=== PATIENT | male | born 1940 | race African-American/Black ===

== ENCOUNTER 2017-02-20 13:39 | Inpatient (IN) | payer OTHER ==
--- NOTE | 2017-02-20 17:32 | HP ---
CIWA Score - CIWA Score Nausea/Vomitin Muscle Tremors: 4-Moderate,w/Arms Extend Anxiety: 3 Agitation: 3 Paroxysmal Sweats: 3 Orientation: 1-Uncertain about Date Tacttile Disturbances: 1-Very Mild Itch/Numbness Auditory Disturbances: 0-None Visual Disturbances: 0-None Headache: 0-None Present CIWA-Ar Total Score: 17 Admission ROS BHS - HPI Chief Complaint: Withdrawal sx Allergies/Adverse Reactions: Allergies Allergy/AdvReac Type Severity Reaction Status Date / Time No Known Allergies Allergy Verified 02/20/17 17:17 History of Present Illness: 77 y/o man with a long hx. of alcoholism is admitted for detox. Pt. has been in previous detox, denies significant sobriety. Exam Limitations: No Limitations - Ebola screening Have you traveled outside of the country in the last 21 days: No Have you had contact with anyone from an Ebola affected area: No Have you been sick,other than usual withdrawal symptoms: No Do you have a fever: No - Review of Systems Constitutional: Diaphoresis EENT: reports: No Symptoms Reported Respiratory: reports: No Symptoms reported Cardiac: reports: No Symptoms Reported GI: reports: Nausea, Abdominal cramping : reports: Frequency Musculoskeletal: reports: Back Pain, Joint Pain Integumentary: reports: Sweating Neuro: reports: Tingling, Tremors Endocrine: reports: No Symptoms Reported Hematology: reports: No Symptoms Reported Psychiatric: reports: No Sypmtoms Reported Other Systems: Reviewed and Negative Patient History - Patient Medical History Hx Anemia: No Hx Asthma: No Hx Chronic Obstructive Pulmonary Disease (COPD): No Hx Cancer: No Hx Cardiac Disorders: No Hx Congestive Heart Failure: No Hx Hypertension: Yes Hx Hypercholesterolemia: No Hx Pacemaker: No HX Cerebrovascular Accident: No Hx Seizures: No Hx Dementia: No Hx Diabetes: No Hx Gastrointestinal Disorders: Yes (gerd) Hx Liver Disease: No Hx Genitourinary Disorders: No Hx Sexually Transmitted Disorders: No Hx Renal Disease (ESRD): No Hx Thyroid Disease: No Hx Human Immunodeficiency Virus (HIV): No Hx Hepatitis C: No Hx Depression: Yes Hx Suicide Attempt: No Hx Bipolar Disorder: No Hx Schizophrenia: No - Patient Surgical History Past Surgical History: Yes Hx Appendectomy: Yes (1967) Hx Orthopedic Surgery: Yes (total knee replacement 2014 & 2015) - PPD History Previous Implant?: Yes Documented Results: Positive w/o proof PPD to be Administered?: No - Smoking Cessation Smoking history: Former smoker Have you smoked in the past 12 months: No Initiated information on smoking cessation: No - Substance & Tx. History Hx Alcohol Use: Yes Hx Substance Use: Yes Substance Use Type: Alcohol, Cocaine, Marijuana Hx Substance Use Treatment: Yes (Detox) - Substances Abused Alcohol Route: Oral Frequency: Daily Amount used: Vodka 1 quart Age of first use: 13 Date of Last Use: 02/19/17 Crack Route: Smoking Frequency: Daily Amount used: $60.00-80.00 Age of first use: 39 Date of Last Use: 02/18/17 Marijuana/Hashish Route: Smoking Frequency: Daily Amount used: $20.00 Age of first use: 39 Date of Last Use: 02/20/17 Family Disease History - Family Disease History Family Disease History: Heart Disease: Mother (HTN), Brother (HTN) Admission Physical Exam [facility] - Vital Signs Vital Signs: Vital Signs - 24 hr 02/20/17 14:30 Temperature 97.3 F L Pulse Rate 71 Respiratory 20 Rate Blood Pressure 122/63 - Physical General Appearance: Yes: Tremorous, Sweating, Anxious HEENTM: Yes: Within Normal Limits Respiratory: Yes: Chest Non-Tender, Lungs Clear, Normal Breath Sounds Neck: Yes: Supple Breast: Yes: Breast Exam Deferred Cardiology: Yes: Regular Rhythm, Regular Rate, S1, S2 Abdominal: Yes: Normal Bowel Sounds, Non Tender, Soft Back: Yes: Within Normal Limits Musculoskeletal: Yes: Within Normal Limits Extremities: Yes: Tremors Neurological: Yes: Fully Oriented, Alert Integumentary: Yes: Diaphoresis Lymphatic: Yes: Within Normal Limits - Diagnostic (1) Alcohol dependence with uncomplicated withdrawal Current Visit: Yes Status: Acute (2) Glaucoma of both eyes Current Visit: Yes Status: Acute (3) Gout Current Visit: Yes Status: Acute Qualifiers: Gout site: hand (4) HTN (hypertension) Current Visit: Yes Status: Acute Qualifiers: Hypertension type: essential hypertension Qualified Code(s): I10 - Essential (primary) hypertension (5) Cocaine dependence, uncomplicated Current Visit: Yes Status: Acute (6) Cannabis dependence, uncomplicated Current Visit: Yes Status: Acute Cleared for Admission [facility] - Detox or Rehab [facility] Level of Care: Medically Managed Detox Regimen/Protocol: Librium S Breath Alcohol Content Breath Alcohol Content: 0 Urine Drug Screen - Results Drug Screen Negative: No Urine Drug Screen Results: THC-Marijuana, BAUDILIO-Cocaine, TCA-Tricyclic Antidepress
[2017-02-20] MEDS ORDERED: MAGNESIUM HYDROX 2400MG/30ML ORAL SUSPENSION 30 ML CUP PO PRN (17:45)
[2017-02-20] MEDS ORDERED: chlordiazePOXIDE HCL 25 MG CAPSULE PO PRN (17:45)
[2017-02-20] MEDS ORDERED: P-EPHED 60MG/TRIPROLIDI 2.5MG TABLET PO PRN (17:45)
[2017-02-20] MEDS ORDERED: chlordiazePOXIDE HCL 25 MG CAPSULE PO ONE (17:45)
[2017-02-20] MEDS ORDERED: MAGNESIUM CITRATE 300 ML BOTTLE PO PRN (17:45)
[2017-02-20] MEDS ORDERED: LOPERAMIDE HCL 2 MG CAPSULE PO PRN (17:45)
[2017-02-20] MEDS: amLODIPine BESYLATE 5 MG TABLET (FP) PO SCH (22:37)
[2017-02-20] MEDS: TAMSULOSIN HCL 0.4 MG CAP.ER.24H (FP) PO SCH (22:37)
[2017-02-20] MEDS: ENALAPRIL MALEATE 10 MG TABLET (FP) PO SCH (22:37)
[2017-02-20] MEDS: chlordiazePOXIDE HCL 25 MG CAPSULE PO SCH (22:37)
[2017-02-20] MEDS: THIAMINE HCL 100 MG TABLET (FP) PO SCH (22:37)
[2017-02-20] MEDS: DUTASTERIDE 0.5 MG CAP (FP) PO SCH (22:38)
[2017-02-20] MEDS: LATANOPROST 0.005% OPHTH SOLN 2.5ML BOTTLE OU SCH (22:38)
[2017-02-20] MEDS: ALLOPURINOL 100 MG TABLET (FP) PO SCH (22:38)
[2017-02-21] MEDS: chlordiazePOXIDE HCL 25 MG CAPSULE PO SCH ×4 (05:39→22:05)
[2017-02-21] MEDS: PRENATAL VITAMINS W/ FOLIC ACID TABLET (FP) PO SCH (10:26)
[2017-02-21] MEDS: IBUPROFEN 400 MG TABLET (FP) PO PRN (10:28)
[2017-02-21 10:31] LABS: ALBUMIN 2.8 g/dl (3.4-5.0); ANION GAP 11 (8-16); CO2 23 mmol/L (21-32); GLUCOSE,RANDOM 92 mg/dL (74-106)
[2017-02-21 10:34] LABS: ALK PHOS 98 U/L (45-117); BILIRUBIN,TOTAL 0.7 mg/dL (0.2-1.0); CREATININE 1.1 mg/dL (0.7-1.3); SGOT/AST 20 U/L (15-37); SGPT/ALT 26 U/L (12-78); TOT PROT 5.7 g/dl (6.4-8.2)
[2017-02-21 10:55] LABS: MCH 32.3 pg (25.7-33.7); MCHC 33.6 g/dl (32.0-35.9); MEAN PLT VOLUME 8.5 fl (7.5-11.1); PLATELET COUNT 144 K/MM3 (134-434); RDW 15.2 % (11.9-15.9); WHITE BLOOD COUNT 8.4 K/mm3 (4.0-10.0)
[2017-02-21 11:53] LABS: PH,URINE 5.5 (5.0-8.0); URINE APPEARANCE CLEAR; URINE BILIRUBIN 1+ (NEGATIVE); URINE BLOOD NEGATIVE (NEGATIVE); URINE COLOR DK. YELLOW; URINE GLUCOSE (UA) NEGATIVE (NEGATIVE); URINE KETONE TRACE (NEGATIVE); URINE LEUK ESTERASE NEGATIVE (NEGATIVE); URINE NITRITE NEGATIVE (NEGATIVE); URINE PROTEIN TRACE (NEGATIVE); URINE UROBILINOGEN 0.2 mg/dL (0.2-1.0)
[2017-02-21] MEDS ORDERED: PNEUMOC 13-VAL CONJ-DIP CRM/PF 0.5 ML DISP.SYRIN IM ONE (12:00)
--- NOTE | 2017-02-21 13:54 | EKG ---
Test Reason : Blood Pressure : / mmHG Vent. Rate : 057 BPM Atrial Rate : 057 BPM P-R Int : 186 ms QRS Dur : 108 ms QT Int : 416 ms P-R-T Axes : 066 042 042 degrees QTc Int : 404 ms SINUS BRADYCARDIA POSSIBLE LEFT ATRIAL ENLARGEMENT RIGHT BUNDLE BRANCH BLOCK ABNORMAL ECG NO PREVIOUS ECGS AVAILABLE Confirmed by KAYCEE SNOW, MAMTA ([id number]) on 02/21/2017 1:53:51 PM Referred By: Jim May Confirmed By:MAMTA BENOIT MD
--- NOTE | 2017-02-21 16:35 | PN ---
S CIWA - CIWA Score Nausea/Vomitin Muscle Tremors: 4-Moderate,w/Arms Extend Anxiety: 4-Mod. Anxious/Guarded Agitation: 4-Moderately Restless Paroxysmal Sweats: 3 Orientation: 0-Oriented Tacttile Disturbances: 1-Very Mild Itch/Numbness Auditory Disturbances: 0-None Visual Disturbances: 0-None Headache: 1-Very Mild CIWA-Ar Total Score: 20 BHS Progress Note (SOAP) Subjective: Tremor, chills, anxious, diarrhea, interrupted sleep, sweating Objective: 02/21/17 16:33 Last Vital Signs Temp Pulse Resp BP Pulse Ox 95.8 F L 65 18 106/54 02/21/17 14:28 02/21/17 14:28 02/21/17 14:28 02/21/17 14:28 Laboratory Tests 02/21/17 02/21/17 02/21/17 08:00 08:00 08:00 WBC 8.4 RBC 3.98 L Hgb 12.8 Hct 38.2 MCV 96.0 MCH 32.3 MCHC 33.6 RDW 15.2 Plt Count 144 MPV 8.5 Sodium 143 Potassium 3.6 Chloride 109 H Carbon Dioxide 23 Anion Gap 11 BUN 19 H Creatinine 1.1 Creat Clearance w eGFR > 60 Random Glucose 92 Calcium 8.0 L Total Bilirubin 0.7 AST 20 ALT 26 Alkaline Phosphatase 98 Total Protein 5.7 L Albumin 2.8 L Urine Color Urine Appearance Urine pH Urine Protein Urine Glucose (UA) Urine Ketones Urine Blood Urine Nitrite Urine Bilirubin Urine Urobilinogen Ur Leukocyte Esterase RPR Titer Nonreactive 02/21/17 09:20 WBC RBC Hgb Hct MCV MCH MCHC RDW Plt Count MPV Sodium Potassium Chloride Carbon Dioxide Anion Gap BUN Creatinine Creat Clearance w eGFR Random Glucose Calcium Total Bilirubin AST ALT Alkaline Phosphatase Total Protein Albumin Urine Color Dk. yellow Urine Appearance Clear Urine pH 5.5 Urine Protein Trace H Urine Glucose (UA) Negative Urine Ketones Trace H Urine Blood Negative Urine Nitrite Negative Urine Bilirubin 1+ H Urine Urobilinogen 0.2 Ur Leukocyte Esterase Negative RPR Titer Labs noted: abnormal UA Assessment: 02/21/17 16:34 Withdrawal symptoms Noted with abnormal UA Plan: Continue detox Abnormal UA: encouraged to drink lots of water (water pitcher ordered), repeat UA (already ordered)
[2017-02-21] MEDS: ENALAPRIL MALEATE 10 MG TABLET (FP) PO SCH (22:05)
[2017-02-21] MEDS: TAMSULOSIN HCL 0.4 MG CAP.ER.24H (FP) PO SCH (22:05)
[2017-02-21] MEDS: THIAMINE HCL 100 MG TABLET (FP) PO SCH (22:05)
[2017-02-21] MEDS: amLODIPine BESYLATE 5 MG TABLET (FP) PO SCH (22:05)
[2017-02-21] MEDS: diphenhydrAMINE HCL 50 MG CAPSULE PO PRN (22:06)
[2017-02-21] MEDS: DUTASTERIDE 0.5 MG CAP (FP) PO SCH (22:06)
[2017-02-21] MEDS: LATANOPROST 0.005% OPHTH SOLN 2.5ML BOTTLE OU SCH (22:56)
[2017-02-21] MEDS: ALLOPURINOL 100 MG TABLET (FP) PO SCH (22:56)
[2017-02-22] MEDS: chlordiazePOXIDE HCL 25 MG CAPSULE PO SCH ×3 (05:43→17:39)
[2017-02-22] MEDS: PRENATAL VITAMINS W/ FOLIC ACID TABLET (FP) PO SCH (10:31)
--- NOTE | 2017-02-22 11:03 | CONSULT ---
[facility] Psychiatric Consult - Data Date of interview: 02/22/17 Admission source: [facility] Identifying data: Readmission to [facility] for this 77 y/o AA male seeking detox treatment on 3 for alcohol,cocaine (crack) and marihuana dependence.Patient is single without children,homeless,unemployed and supported on SSI benefits (?). Substance Abuse History: Discussed with patient in this interview.Mr Phong confirms this report as an accurate account of his addictions. Smoking Cessation. Smoking history: Former smoker. Have you smoked in the past 12 months: No. Initiated information on smoking cessation: No. - Substance & Tx. History. Hx Alcohol Use: Yes. Hx Substance Use: Yes. Substance Use Type: Alcohol, Cocaine, Marijuana. Hx Substance Use Treatment: Yes (Detox). - Substances Abused. Alcohol. Route: Oral. Frequency: Daily. Amount used: Vodka 1 quart. Age of first use: 13. Date of Last Use: 02/19/17. Crack. Route: Smoking. Frequency: Daily. Amount used: $60.00-80.00. Age of first use : 39. Date of Last Use: 02/18/17. Marijuana/Hashish. Route: Smoking. Frequency: Daily. Amount used: $20.00. Age of first use: 39. Date of Last Use : 02/20/17 Medical History: Remarkable for arthritis,lower back pain,gout,GERD,glaucoma ( both eyes),appendectomy and a history of total knee replacement. Psychiatric History: Patient denies. Physical/Sexual Abuse/Trauma History: Patient denies. Additional Comment: Urine Drug Screen Results: THC-Marijuana, BAUDILIO-Cocaine, TCA- Tricyclic Antidepressant.Noted. Mental Status Exam - Mental Status Exam Alert and Oriented to: Time, Place, Person Cognitive Function: Grossly Intact Patient Appearance: Unkempt, Disheveled Mood: Withdrawn, Irritable Affect: Mood Congruent Patient Behavior: Fatigued, Guarded Speech Pattern: Clear Voice Loudness: Normal Thought Process: Goal Oriented Thought Disorder: Not Present Hallucinations: Denies Suicidal Ideation: Denies Homicidal Ideation: Denies Insight/Judgement: Poor Sleep: Well Appetite: Good Gait/Station: Other (moves around in a wheelchair) Psychiatric Findings - Problem List ([place] 1, 2,3) (1) Alcohol dependence with uncomplicated withdrawal Current Visit: Yes Status: Acute (2) Cannabis dependence, uncomplicated Current Visit: Yes Status: Acute (3) Cocaine dependence, uncomplicated Current Visit: Yes Status: Acute (4) Glaucoma of both eyes Current Visit: Yes Status: Acute (5) Gout Current Visit: Yes Status: Chronic Qualifiers: Gout site: hand (6) HTN (hypertension) Current Visit: Yes Status: Chronic Qualifiers: Hypertension type: essential hypertension Qualified Code(s): I10 - Essential (primary) hypertension - Initial Treatment Plan Initial Treatment Plan: Psychoeducation is provided in this session.Detoxification in progress.Observation.
--- NOTE | 2017-02-22 12:26 | PN ---
[facility] CIWA - CIWA Score Nausea/Vomitin-No Nausea/No Vomiting Muscle Tremors: 4-Moderate,w/Arms Extend Anxiety: 4-Mod. Anxious/Guarded Agitation: 3 Paroxysmal Sweats: 3 Orientation: 0-Oriented Tacttile Disturbances: 0-None Auditory Disturbances: 0-None Visual Disturbances: 0-None Headache: 0-None Present CIWA-Ar Total Score: 14 S Progress Note (SOAP) Subjective: Sweating,interrupted sleep,anxiety,tremors Objective: 02/22/17 12:18 Vital Signs - 8 hr 02/22/17 02/22/17 06:37 09:44 Temperature 97.2 F L 96.9 F L Pulse Rate 71 74 Respiratory 16 18 Rate Blood Pressure 122/70 108/66 Laboratory Last Values WBC 8.4 K/mm3 (4.0-10.0) 02/21/17 08:00 RBC 3.98 M/mm3 (4.00-5.60) L 02/21/17 08:00 Hgb 12.8 GM/dL (11.7-16.9) 02/21/17 08:00 Hct 38.2 % (35.4-49) 02/21/17 08:00 MCV 96.0 fl (80-96) 02/21/17 08:00 MCH 32.3 pg (25.7-33.7) 02/21/17 08:00 MCHC 33.6 g/dl (32.0-35.9) 02/21/17 08:00 RDW 15.2 % (11.9-15.9) 02/21/17 08:00 Plt Count 144 K/MM3 (134-434) 02/21/17 08:00 MPV 8.5 fl (7.5-11.1) 02/21/17 08:00 Sodium 143 mmol/L (136-145) 02/21/17 08:00 Potassium 3.6 mmol/L (3.5-5.1) 02/21/17 08:00 Chloride 109 mmol/L (98-107) H 02/21/17 08:00 Carbon Dioxide 23 mmol/L (21-32) 02/21/17 08:00 Anion Gap 11 (8-16) 02/21/17 08:00 BUN 19 mg/dL (7-18) H 02/21/17 08:00 Creatinine 1.1 mg/dL (0.7-1.3) 02/21/17 08:00 Creat Clearance w eGFR > 60 (>60) 02/21/17 08:00 Random Glucose 92 mg/dL (74-106) 02/21/17 08:00 Calcium 8.0 mg/dL (8.5-10.1) L 02/21/17 08:00 Total Bilirubin 0.7 mg/dL (0.2-1.0) 02/21/17 08:00 AST 20 U/L (15-37) 02/21/17 08:00 ALT 26 U/L (12-78) 02/21/17 08:00 Alkaline Phosphatase 98 U/L (45-117) 02/21/17 08:00 Total Protein 5.7 g/dl (6.4-8.2) L 02/21/17 08:00 Albumin 2.8 g/dl (3.4-5.0) L 02/21/17 08:00 Urine Color Dk. yellow 02/21/17 09:20 Urine Appearance Clear 02/21/17 09:20 Urine pH 5.5 (5.0-8.0) 02/21/17 09:20 Ur Specific [place] 1.025 (1.005-1.025) 02/21/17 09:20 Urine Protein Trace (NEGATIVE) H 02/21/17 09:20 Urine Glucose (UA) Negative (NEGATIVE) 02/21/17 09:20 Urine Ketones Trace (NEGATIVE) H 02/21/17 09:20 Urine Blood Negative (NEGATIVE) 02/21/17 09:20 Urine Nitrite Negative (NEGATIVE) 02/21/17 09:20 Urine Bilirubin 1+ (NEGATIVE) H 02/21/17 09:20 Urine Urobilinogen 0.2 mg/dL (0.2-1.0) 02/21/17 09:20 Ur Leukocyte Esterase Negative (NEGATIVE) 02/21/17 09:20 RPR Titer Nonreactive (NONREACTIVE) 02/21/17 08:00 labs noted Assessment: 02/22/17 12:19 Withdrawal sx. Plan: Continue detox
[2017-02-22] MEDS: IBUPROFEN 400 MG TABLET (FP) PO PRN (17:38)
[2017-02-22] MEDS: TAMSULOSIN HCL 0.4 MG CAP.ER.24H (FP) PO SCH (22:37)
[2017-02-22] MEDS: THIAMINE HCL 100 MG TABLET (FP) PO SCH (22:38)
[2017-02-22] MEDS: amLODIPine BESYLATE 5 MG TABLET (FP) PO SCH (22:38)
[2017-02-22] MEDS: ENALAPRIL MALEATE 10 MG TABLET (FP) PO SCH (22:38)
[2017-02-22] MEDS: chlordiazePOXIDE 5 MG CAPSULE PO SCH (22:38)
[2017-02-22] MEDS: DUTASTERIDE 0.5 MG CAP (FP) PO SCH (22:38)
[2017-02-22] MEDS: ALLOPURINOL 100 MG TABLET (FP) PO SCH (22:38)
[2017-02-22] MEDS: LATANOPROST 0.005% OPHTH SOLN 2.5ML BOTTLE OU SCH (22:39)
[2017-02-23] MEDS: chlordiazePOXIDE 5 MG CAPSULE PO SCH (05:31)
[2017-02-23] MEDS: PRENATAL VITAMINS W/ FOLIC ACID TABLET (FP) PO SCH (10:32)
--- NOTE | 2017-02-23 11:05 | PN ---
[facility] Progress Note (SOAP) Subjective: Sweating,interrupted sleep,restless. Pt. wants to go to rehab upon completion of detox. Objective: 02/23/17 11:04 Vital Signs - 8 hr 02/23/17 02/23/17 02/23/17 03:30 06:42 10:05 Temperature 97.0 F L 95.8 F L Pulse Rate 82 76 Respiratory 18 18 18 Rate Blood Pressure 134/80 128/76 Laboratory Last Values WBC 8.4 K/mm3 (4.0-10.0) 02/21/17 08:00 RBC 3.98 M/mm3 (4.00-5.60) L 02/21/17 08:00 Hgb 12.8 GM/dL (11.7-16.9) 02/21/17 08:00 Hct 38.2 % (35.4-49) 02/21/17 08:00 MCV 96.0 fl (80-96) 02/21/17 08:00 MCH 32.3 pg (25.7-33.7) 02/21/17 08:00 MCHC 33.6 g/dl (32.0-35.9) 02/21/17 08:00 RDW 15.2 % (11.9-15.9) 02/21/17 08:00 Plt Count 144 K/MM3 (134-434) 02/21/17 08:00 MPV 8.5 fl (7.5-11.1) 02/21/17 08:00 Sodium 143 mmol/L (136-145) 02/21/17 08:00 Potassium 3.6 mmol/L (3.5-5.1) 02/21/17 08:00 Chloride 109 mmol/L (98-107) H 02/21/17 08:00 Carbon Dioxide 23 mmol/L (21-32) 02/21/17 08:00 Anion Gap 11 (8-16) 02/21/17 08:00 BUN 19 mg/dL (7-18) H 02/21/17 08:00 Creatinine 1.1 mg/dL (0.7-1.3) 02/21/17 08:00 Creat Clearance w eGFR > 60 (>60) 02/21/17 08:00 Random Glucose 92 mg/dL (74-106) 02/21/17 08:00 Calcium 8.0 mg/dL (8.5-10.1) L 02/21/17 08:00 Total Bilirubin 0.7 mg/dL (0.2-1.0) 02/21/17 08:00 AST 20 U/L (15-37) 02/21/17 08:00 ALT 26 U/L (12-78) 02/21/17 08:00 Alkaline Phosphatase 98 U/L (45-117) 02/21/17 08:00 Total Protein 5.7 g/dl (6.4-8.2) L 02/21/17 08:00 Albumin 2.8 g/dl (3.4-5.0) L 02/21/17 08:00 Urine Color Dk. yellow 02/21/17 09:20 Urine Appearance Clear 02/21/17 09:20 Urine pH 5.5 (5.0-8.0) 02/21/17 09:20 Ur Specific [place] 1.025 (1.005-1.025) 02/21/17 09:20 Urine Protein Trace (NEGATIVE) H 02/21/17 09:20 Urine Glucose (UA) Negative (NEGATIVE) 02/21/17 09:20 Urine Ketones Trace (NEGATIVE) H 02/21/17 09:20 Urine Blood Negative (NEGATIVE) 02/21/17 09:20 Urine Nitrite Negative (NEGATIVE) 02/21/17 09:20 Urine Bilirubin 1+ (NEGATIVE) H 02/21/17 09:20 Urine Urobilinogen 0.2 mg/dL (0.2-1.0) 02/21/17 09:20 Ur Leukocyte Esterase Negative (NEGATIVE) 02/21/17 09:20 RPR Titer Nonreactive (NONREACTIVE) 02/21/17 08:00 labs noted Assessment: 02/23/17 11:05 Withdrawal sx. Plan: Continue detox
[2017-02-23] MEDS: MAG HYDROX/AL HYDROX/SIMETH 30 ML UNIT-DOSE CUP PO PRN ×2 (14:54→22:39)
[2017-02-23] MEDS: ALLOPURINOL 100 MG TABLET (FP) PO SCH (22:35)
[2017-02-23] MEDS: DUTASTERIDE 0.5 MG CAP (FP) PO SCH (22:35)
[2017-02-23] MEDS: THIAMINE HCL 100 MG TABLET (FP) PO SCH (22:35)
[2017-02-23] MEDS: amLODIPine BESYLATE 5 MG TABLET (FP) PO SCH (22:36)
[2017-02-23] MEDS: ENALAPRIL MALEATE 10 MG TABLET (FP) PO SCH (22:36)
[2017-02-23] MEDS: TAMSULOSIN HCL 0.4 MG CAP.ER.24H (FP) PO SCH (22:36)
[2017-02-23] MEDS: LATANOPROST 0.005% OPHTH SOLN 2.5ML BOTTLE OU SCH (22:54)
[2017-02-23] MEDS ORDERED: chlordiazePOXIDE HCL 10 MG CAPSULE PO SCH ×2 (23:00)
--- NOTE | 2017-02-24 09:26 | HP ---
[facility] Rehab Assess/Revision - Admission History Admitted to Rehab from: [facility] [place] - Vital signs Vital Signs: Vital Signs Period Temp Pulse Resp BP Sys/[place] Pulse Ox Last 24 Hr 95.8 F-97.4 F 69-82 18-20 115-136/69-79 - Findings Detox History & Physical reviewed: Yes Concur with findings: Yes Comments/Additional Findings: PATIENT TRANSFERRED FROM DETOX UNIT TO REHAB UNIT IN STABLE MEDICAL CONDITION.
[2017-02-24] MEDS: PRENATAL VITAMINS W/ FOLIC ACID TABLET (FP) PO SCH (10:52)
--- NOTE | 2017-02-24 11:43 | DS ---
[facility] Detox Discharge Summary Admission Date: 02/20/17 Discharge Date: 02/24/17 - History Present History: Alcohol Dependence, Cannabis Dependence, Cocaine Dependence Additional Comments: PATIENT GOING TO [facility]. PATIENT ADVISED TO FOLLOW-UP THERE FOR AFTERCARE PER DISCHARGE ARRANGEMENT. Pertinent Past History: Gout, Glaucoma, GERD, Depression, HTN. - Physical Exam Results Vital Signs: Vital Signs Temperature 96.5 F L 02/24/17 09:47 Pulse Rate 73 02/24/17 09:47 Respiratory Rate 18 02/24/17 09:47 Blood Pressure 137/68 02/24/17 09:47 O2 Sat by Pulse Oximetry (%) Pertinent Admission Physical Exam Findings: WITHDRAWAL SYMPTOMS. Laboratory Tests 02/21/17 02/21/17 02/21/17 08:00 08:00 08:00 WBC 8.4 RBC 3.98 L Hgb 12.8 Hct 38.2 MCV 96.0 MCH 32.3 MCHC 33.6 RDW 15.2 Plt Count 144 MPV 8.5 Sodium 143 Potassium 3.6 Chloride 109 H Carbon Dioxide 23 Anion Gap 11 BUN 19 H Creatinine 1.1 Creat Clearance w eGFR > 60 Random Glucose 92 Calcium 8.0 L Total Bilirubin 0.7 AST 20 ALT 26 Alkaline Phosphatase 98 Total Protein 5.7 L Albumin 2.8 L Urine Color Urine Appearance Urine pH Ur Specific [place] Urine Protein Urine Glucose (UA) Urine Ketones Urine Blood Urine Nitrite Urine Bilirubin Urine Urobilinogen Ur Leukocyte Esterase RPR Titer Nonreactive 02/21/17 09:20 WBC RBC Hgb Hct MCV MCH MCHC RDW Plt Count MPV Sodium Potassium Chloride Carbon Dioxide Anion Gap BUN Creatinine Creat Clearance w eGFR Random Glucose Calcium Total Bilirubin AST ALT Alkaline Phosphatase Total Protein Albumin Urine Color Dk. yellow Urine Appearance Clear Urine pH 5.5 Ur Specific [place] 1.025 Urine Protein Trace H Urine Glucose (UA) Negative Urine Ketones Trace H Urine Blood Negative Urine Nitrite Negative Urine Bilirubin 1+ H Urine Urobilinogen 0.2 Ur Leukocyte Esterase Negative RPR Titer LABS NOTED. - Treatment Hospital Course: Detox Protocol Followed, Detoxed Safely, Responded well, Discharged Condition Good, Rehab Referral Accepted Patient has Accepted a Rehab Referral to: [facility]. - Medication Discharge Medications: Ambulatory Orders Loperamide HCl [Imodium -] 4 mg PO Q6H PRN 01/02/16 Multivitamin [Poly-Vitamin] 1 each PO DAILY #30 tab.chew 01/03/16 Thiamine HCl [B-1] 100 mg PO HS #30 tablet 01/03/16 Ranitidine [Zantac -] 150 mg PO BID #60 tablet 04/15/16 Allopurinol [Zyloprim -] 100 mg PO HS 02/20/17 Amlodipine Besylate [Norvasc -] 5 mg PO HS 02/20/17 Dutasteride [Avodart] 0.5 mg PO HS 02/20/17 Enalapril Maleate [Vasotec -] 10 mg PO HS 02/20/17 Latanoprost 0.005% Eye Drops [Xalatan 0.005% Eye Drops -] 1 drop OU HS 02/20/17 Tamsulosin HCl [Flomax] 0.4 mg PO HS 02/20/17 - Diagnosis (1) Cannabis dependence, uncomplicated Current Visit: Yes Status: Acute (2) Cocaine dependence, uncomplicated Current Visit: Yes Status: Acute (3) Glaucoma of both eyes Current Visit: Yes Status: Chronic Qualifiers: Glaucoma type: unspecified Qualified Code(s): H40.9 - Unspecified glaucoma (4) Alcohol dependence with uncomplicated withdrawal Current Visit: Yes Status: Acute (5) Chronic kidney disease Current Visit: No Status: Chronic Qualifiers: Chronic kidney disease stage: unspecified stage Qualified Code(s): N18.9 - Chronic kidney disease, unspecified (6) Gout Current Visit: Yes Status: Acute Qualifiers: Gout site: multiple sites Gout etiology: other secondary cause Chronicity: chronic Presence of tophus: with tophus Qualified Code(s) : M1A.49X1 - Other secondary chronic gout, multiple sites, with tophus (tophi) - AMA Did Patient Leave Against Medical Advice: No
--- NOTE | 2017-02-24 11:47 | HP ---
Psychiatrist Admission - Data Date of interview: 02/24/17 Admission source: [facility] Identifying data: This is the second [facility] admission for this 77 years old single Black male, unemployed on SSI, homeless Medical History: Significant for hypertension, arthritis, lower back pain, gout , GERD, glaucoma (both eyes), +PPD, appendectomy in 1967 and a history of total knee replacementin 2015 & 2016. Psychiatric History: Denies history of previous psychiatric treatment Vital Signs: Vital Signs - 24 hr 02/23/17 02/23/17 02/23/17 14:00 17:56 22:37 Temperature 97.0 F L 97.4 F L 97.1 F L Pulse Rate 79 78 82 Respiratory 18 20 20 Rate Blood Pressure 115/79 125/69 126/79 02/24/17 02/24/17 06:39 09:47 Temperature 97.0 F L 96.5 F L Pulse Rate 69 73 Respiratory 18 18 Rate Blood Pressure 136/77 137/68 Allergies/Adverse Reactions: Allergies Allergy/AdvReac Type Severity Reaction Status Date / Time orange Allergy Verified 03/18/16 14:53 strawberry [[place]] Allergy Verified 03/18/16 14:53 carrot Allergy Uncoded 03/18/16 14:53 Date of last physical exam: 02/20/17 Concur with the findings of this exam: Yes - Substance Abuse/Tx History Hx Alcohol Use: Yes Hx Substance Use: Yes Substance Use Type: Alcohol (Started drinking alcohol at age 13, consumes one pint daily. Last drink on 02/19/17), Cocaine (Started smoking crack cocaine at age 39, consumes $60-80 worth daily. Last drink on 02/18/17), Marijuana (Started smoking marijuana at age 39, consumes $20 worth daily. Last smoked on 02/20/17) Hx Substance Use Treatment: Yes (one previous inpt detox & one inpt rehab(5N) @ [facility]) - Admission Criteria Previous failed treatment: No Poor recovery environment: Yes Comorbidities: Yes Lacks judgement: Yes Mental Status Exam - Mental Status Exam Alert and Oriented to: Time, Place, Person Cognitive Function: Fair Patient Appearance: Well Groomed Mood: Irritable Affect: Appropriate Patient Behavior: Cooperative Speech Pattern: Clear Voice Loudness: Normal Thought Process: Intact, Goal Oriented Thought Disorder: Not Present Hallucinations: Denies Suicidal Ideation: Denies Homicidal Ideation: Denies Insight/Judgement: Fair Sleep: Well Appetite: Good Muscle strength/Tone: Normal Gait/Station: Normal Psychiatric Findings - Problem List ([place] 1, 2,3) (1) Alcohol dependence Current Visit: Yes Status: Acute (2) Cocaine dependence Current Visit: No Status: Chronic Qualifiers: Substance use status: uncomplicated Qualified Code(s): F14.20 - Cocaine dependence, uncomplicated (3) Cannabis dependence Current Visit: Yes Status: Acute (4) Gout Current Visit: Yes Status: Acute Qualifiers: Gout site: multiple sites Gout etiology: other secondary cause Chronicity: chronic Presence of tophus: with tophus Qualified Code(s) : M1A.49X1 - Other secondary chronic gout, multiple sites, with tophus (tophi) (5) Glaucoma of both eyes Current Visit: Yes Status: Chronic Qualifiers: Glaucoma type: unspecified Qualified Code(s): H40.9 - Unspecified glaucoma (6) DVT prophylaxis Current Visit: No Status: Chronic (7) HTN (hypertension) Current Visit: Yes Status: Acute - Initial Treatment Plan Initial Treatment Plan: Monitor progress
[2017-02-24 12:10] VITALS: BMI 26.4
--- NOTE | 2017-02-24 15:16 | PN ---
[facility] Progress Note Note: coughing greenish mucous,bronchitis,levaquin 250 mgs po daily for 7 days
[2017-02-24] MEDS: amLODIPine BESYLATE 5 MG TABLET (FP) PO SCH (21:37)
[2017-02-24] MEDS: ENALAPRIL MALEATE 10 MG TABLET (FP) PO SCH (21:37)
[2017-02-24] MEDS: TAMSULOSIN HCL 0.4 MG CAP.ER.24H (FP) PO SCH (21:38)
[2017-02-24] MEDS: ALLOPURINOL 100 MG TABLET (FP) PO SCH (21:40)
[2017-02-24] MEDS: LATANOPROST 0.005% OPHTH SOLN 2.5ML BOTTLE OU SCH (21:40)
[2017-02-24] MEDS: IBUPROFEN 400 MG TABLET (FP) PO PRN (21:41)
[2017-02-24] MEDS: DUTASTERIDE 0.5 MG CAP (FP) PO SCH (22:38)
[2017-02-24] MEDS: THIAMINE HCL 100 MG TABLET (FP) PO SCH (22:38)
[2017-02-25] MEDS: LEVOFLOXACIN 250 MG TABLET (FP) PO SCH (06:16)
[2017-02-25] MEDS: PRENATAL VITAMINS W/ FOLIC ACID TABLET (FP) PO SCH (10:29)
[2017-02-25] MEDS: MAG HYDROX/AL HYDROX/SIMETH 30 ML UNIT-DOSE CUP PO PRN (10:30)
[2017-02-25] MEDS ORDERED: PNEUMOC 13-VAL CONJ-DIP CRM/PF 0.5 ML DISP.SYRIN IM ONE (12:00)
[2017-02-25] MEDS: TAMSULOSIN HCL 0.4 MG CAP.ER.24H (FP) PO SCH (21:34)
[2017-02-25] MEDS: ALLOPURINOL 100 MG TABLET (FP) PO SCH (21:34)
[2017-02-25] MEDS: amLODIPine BESYLATE 5 MG TABLET (FP) PO SCH (21:34)
[2017-02-25] MEDS: THIAMINE HCL 100 MG TABLET (FP) PO SCH (21:34)
[2017-02-25] MEDS: DUTASTERIDE 0.5 MG CAP (FP) PO SCH (21:35)
[2017-02-25] MEDS: LATANOPROST 0.005% OPHTH SOLN 2.5ML BOTTLE OU SCH (21:36)
[2017-02-25] MEDS: ENALAPRIL MALEATE 10 MG TABLET (FP) PO SCH (21:37)
[2017-02-26] MEDS: guaiFENesin/D-METHORPHAN HB 10 ML UNIT-DOSE CUPS PO PRN (00:34)
[2017-02-26] MEDS: MENTHOL/PHENOL 1 EACH UD MM PRN (00:34)
[2017-02-26] MEDS: LEVOFLOXACIN 250 MG TABLET (FP) PO SCH (06:57)
[2017-02-26] MEDS: PRENATAL VITAMINS W/ FOLIC ACID TABLET (FP) PO SCH (10:02)
[2017-02-26] MEDS: IBUPROFEN 400 MG TABLET (FP) PO PRN (18:04)
[2017-02-26] MEDS: ENALAPRIL MALEATE 10 MG TABLET (FP) PO SCH (21:30)
[2017-02-26] MEDS: TAMSULOSIN HCL 0.4 MG CAP.ER.24H (FP) PO SCH (21:30)
[2017-02-26] MEDS: DUTASTERIDE 0.5 MG CAP (FP) PO SCH (21:30)
[2017-02-26] MEDS: amLODIPine BESYLATE 5 MG TABLET (FP) PO SCH (21:30)
[2017-02-26] MEDS: THIAMINE HCL 100 MG TABLET (FP) PO SCH (21:30)
[2017-02-26] MEDS: ALLOPURINOL 100 MG TABLET (FP) PO SCH (21:30)
[2017-02-26] MEDS: LATANOPROST 0.005% OPHTH SOLN 2.5ML BOTTLE OU SCH (22:28)
[2017-02-27] MEDS: LEVOFLOXACIN 250 MG TABLET (FP) PO SCH (06:39)
[2017-02-27] MEDS: ACETAMINOPHEN 325 MG TABLET (FP) PO PRN (06:40)
[2017-02-27] MEDS: PRENATAL VITAMINS W/ FOLIC ACID TABLET (FP) PO SCH (10:03)
[2017-02-27] MEDS: DUTASTERIDE 0.5 MG CAP (FP) PO SCH (21:12)
[2017-02-27] MEDS: ENALAPRIL MALEATE 10 MG TABLET (FP) PO SCH (21:12)
[2017-02-27] MEDS: amLODIPine BESYLATE 5 MG TABLET (FP) PO SCH (21:12)
[2017-02-27] MEDS: THIAMINE HCL 100 MG TABLET (FP) PO SCH (21:12)
[2017-02-27] MEDS: LATANOPROST 0.005% OPHTH SOLN 2.5ML BOTTLE OU SCH (21:12)
[2017-02-27] MEDS: TAMSULOSIN HCL 0.4 MG CAP.ER.24H (FP) PO SCH (21:12)
[2017-02-27] MEDS: ALLOPURINOL 100 MG TABLET (FP) PO SCH (21:12)
[2017-02-27] MEDS: diphenhydrAMINE HCL 50 MG CAPSULE PO PRN (21:13)
[2017-02-28] MEDS: LEVOFLOXACIN 250 MG TABLET (FP) PO SCH (06:26)
[2017-02-28] MEDS: IBUPROFEN 400 MG TABLET (FP) PO PRN (10:13)
[2017-02-28] MEDS: PRENATAL VITAMINS W/ FOLIC ACID TABLET (FP) PO SCH (10:13)
[2017-02-28] MEDS: ENALAPRIL MALEATE 10 MG TABLET (FP) PO SCH (21:41)
[2017-02-28] MEDS: amLODIPine BESYLATE 5 MG TABLET (FP) PO SCH (21:41)
[2017-02-28] MEDS: DUTASTERIDE 0.5 MG CAP (FP) PO SCH (21:41)
[2017-02-28] MEDS: ALLOPURINOL 100 MG TABLET (FP) PO SCH (21:41)
[2017-02-28] MEDS: TAMSULOSIN HCL 0.4 MG CAP.ER.24H (FP) PO SCH (21:41)
[2017-02-28] MEDS: THIAMINE HCL 100 MG TABLET (FP) PO SCH (21:42)
[2017-02-28] MEDS: LATANOPROST 0.005% OPHTH SOLN 2.5ML BOTTLE OU SCH (21:42)
[2017-02-28] MEDS: MENTHOL/PHENOL 1 EACH UD MM PRN (21:43)
[2017-03-01] MEDS: LEVOFLOXACIN 250 MG TABLET (FP) PO SCH (07:03)
[2017-03-01] MEDS: IBUPROFEN 400 MG TABLET (FP) PO PRN (07:04)
[2017-03-01] MEDS: PRENATAL VITAMINS W/ FOLIC ACID TABLET (FP) PO SCH (10:10)
[2017-03-01] MEDS: ACETAMINOPHEN 325 MG TABLET (FP) PO PRN (10:11)
[2017-03-01] MEDS: DUTASTERIDE 0.5 MG CAP (FP) PO SCH (21:15)
[2017-03-01] MEDS: ENALAPRIL MALEATE 10 MG TABLET (FP) PO SCH (21:15)
[2017-03-01] MEDS: amLODIPine BESYLATE 5 MG TABLET (FP) PO SCH (21:15)
[2017-03-01] MEDS: ALLOPURINOL 100 MG TABLET (FP) PO SCH (21:15)
[2017-03-01] MEDS: TAMSULOSIN HCL 0.4 MG CAP.ER.24H (FP) PO SCH (21:15)
[2017-03-01] MEDS: diphenhydrAMINE HCL 50 MG CAPSULE PO PRN (21:16)
[2017-03-01] MEDS: THIAMINE HCL 100 MG TABLET (FP) PO SCH (21:16)
[2017-03-01] MEDS: LATANOPROST 0.005% OPHTH SOLN 2.5ML BOTTLE OU SCH (23:38)
[2017-03-02] MEDS: LEVOFLOXACIN 250 MG TABLET (FP) PO SCH (06:37)
[2017-03-02] MEDS: IBUPROFEN 400 MG TABLET (FP) PO PRN (06:38)
[2017-03-02] MEDS: PRENATAL VITAMINS W/ FOLIC ACID TABLET (FP) PO SCH (10:20)
[2017-03-02] MEDS: LATANOPROST 0.005% OPHTH SOLN 2.5ML BOTTLE OU SCH (21:27)
[2017-03-02] MEDS: ENALAPRIL MALEATE 10 MG TABLET (FP) PO SCH (21:28)
[2017-03-02] MEDS: ALLOPURINOL 100 MG TABLET (FP) PO SCH (21:28)
[2017-03-02] MEDS: TAMSULOSIN HCL 0.4 MG CAP.ER.24H (FP) PO SCH (21:28)
[2017-03-02] MEDS: DUTASTERIDE 0.5 MG CAP (FP) PO SCH (21:28)
[2017-03-02] MEDS: THIAMINE HCL 100 MG TABLET (FP) PO SCH (21:28)
[2017-03-02] MEDS: amLODIPine BESYLATE 5 MG TABLET (FP) PO SCH (21:28)
[2017-03-03] MEDS: LEVOFLOXACIN 250 MG TABLET (FP) PO SCH (07:24)
[2017-03-03] MEDS: PRENATAL VITAMINS W/ FOLIC ACID TABLET (FP) PO SCH (10:07)
[2017-03-03] MEDS: TAMSULOSIN HCL 0.4 MG CAP.ER.24H (FP) PO SCH (21:41)
[2017-03-03] MEDS: amLODIPine BESYLATE 5 MG TABLET (FP) PO SCH (21:41)
[2017-03-03] MEDS: THIAMINE HCL 100 MG TABLET (FP) PO SCH (21:41)
[2017-03-03] MEDS: DUTASTERIDE 0.5 MG CAP (FP) PO SCH (21:41)
[2017-03-03] MEDS: ALLOPURINOL 100 MG TABLET (FP) PO SCH (21:41)
[2017-03-03] MEDS: ENALAPRIL MALEATE 10 MG TABLET (FP) PO SCH (21:41)
[2017-03-03] MEDS: LATANOPROST 0.005% OPHTH SOLN 2.5ML BOTTLE OU SCH (21:42)
[2017-03-03] MEDS: diphenhydrAMINE HCL 50 MG CAPSULE PO PRN (21:46)
[2017-03-04] MEDS: ACETAMINOPHEN 325 MG TABLET (FP) PO PRN (06:25)
[2017-03-04] MEDS: LEVOFLOXACIN 250 MG TABLET (FP) PO SCH (06:25)
[2017-03-04] MEDS: PRENATAL VITAMINS W/ FOLIC ACID TABLET (FP) PO SCH (10:12)
[2017-03-04] MEDS: LATANOPROST 0.005% OPHTH SOLN 2.5ML BOTTLE OU SCH (21:17)
[2017-03-04] MEDS: THIAMINE HCL 100 MG TABLET (FP) PO SCH (21:17)
[2017-03-04] MEDS: TAMSULOSIN HCL 0.4 MG CAP.ER.24H (FP) PO SCH (21:18)
[2017-03-04] MEDS: ALLOPURINOL 100 MG TABLET (FP) PO SCH (21:18)
[2017-03-04] MEDS: ENALAPRIL MALEATE 10 MG TABLET (FP) PO SCH (21:18)
[2017-03-04] MEDS: DUTASTERIDE 0.5 MG CAP (FP) PO SCH (21:18)
[2017-03-04] MEDS: amLODIPine BESYLATE 5 MG TABLET (FP) PO SCH (21:18)
[2017-03-05] MEDS: ACETAMINOPHEN 325 MG TABLET (FP) PO PRN (09:56)
[2017-03-05] MEDS: PRENATAL VITAMINS W/ FOLIC ACID TABLET (FP) PO SCH (09:57)
[2017-03-05] MEDS: ALLOPURINOL 100 MG TABLET (FP) PO SCH (21:14)
[2017-03-05] MEDS: THIAMINE HCL 100 MG TABLET (FP) PO SCH (21:14)
[2017-03-05] MEDS: LATANOPROST 0.005% OPHTH SOLN 2.5ML BOTTLE OU SCH (21:14)
[2017-03-05] MEDS: ENALAPRIL MALEATE 10 MG TABLET (FP) PO SCH (21:14)
[2017-03-05] MEDS: TAMSULOSIN HCL 0.4 MG CAP.ER.24H (FP) PO SCH (21:15)
[2017-03-05] MEDS: DUTASTERIDE 0.5 MG CAP (FP) PO SCH (21:15)
[2017-03-05] MEDS: amLODIPine BESYLATE 5 MG TABLET (FP) PO SCH (21:15)
[2017-03-06] MEDS: PRENATAL VITAMINS W/ FOLIC ACID TABLET (FP) PO SCH (09:43)
[2017-03-06] MEDS: IBUPROFEN 400 MG TABLET (FP) PO PRN (09:45)
[2017-03-06] MEDS: diphenhydrAMINE HCL 50 MG CAPSULE PO PRN (21:39)
[2017-03-06] MEDS: ALLOPURINOL 100 MG TABLET (FP) PO SCH (21:39)
[2017-03-06] MEDS: ENALAPRIL MALEATE 10 MG TABLET (FP) PO SCH (21:39)
[2017-03-06] MEDS: TAMSULOSIN HCL 0.4 MG CAP.ER.24H (FP) PO SCH (21:39)
[2017-03-06] MEDS: THIAMINE HCL 100 MG TABLET (FP) PO SCH (21:39)
[2017-03-06] MEDS: amLODIPine BESYLATE 5 MG TABLET (FP) PO SCH (21:39)
[2017-03-06] MEDS: DUTASTERIDE 0.5 MG CAP (FP) PO SCH (21:41)
[2017-03-06] MEDS: LATANOPROST 0.005% OPHTH SOLN 2.5ML BOTTLE OU SCH (21:41)
[2017-03-07] MEDS: PRENATAL VITAMINS W/ FOLIC ACID TABLET (FP) PO SCH (09:57)
[2017-03-07] MEDS: MENTHOL/PHENOL 1 EACH UD MM PRN (09:59)
[2017-03-07] MEDS: IBUPROFEN 400 MG TABLET (FP) PO PRN (09:59)
[2017-03-07] MEDS: DUTASTERIDE 0.5 MG CAP (FP) PO SCH (21:24)
[2017-03-07] MEDS: THIAMINE HCL 100 MG TABLET (FP) PO SCH (21:24)
[2017-03-07] MEDS: ENALAPRIL MALEATE 10 MG TABLET (FP) PO SCH (21:24)
[2017-03-07] MEDS: amLODIPine BESYLATE 5 MG TABLET (FP) PO SCH (21:24)
[2017-03-07] MEDS: ALLOPURINOL 100 MG TABLET (FP) PO SCH (21:24)
[2017-03-07] MEDS: TAMSULOSIN HCL 0.4 MG CAP.ER.24H (FP) PO SCH (21:24)
[2017-03-07] MEDS: LATANOPROST 0.005% OPHTH SOLN 2.5ML BOTTLE OU SCH (21:25)
[2017-03-07] MEDS: diphenhydrAMINE HCL 50 MG CAPSULE PO PRN (21:25)
[2017-03-08] MEDS: PRENATAL VITAMINS W/ FOLIC ACID TABLET (FP) PO SCH (10:17)
[2017-03-08] MEDS: IBUPROFEN 400 MG TABLET (FP) PO PRN (10:19)
[2017-03-08] MEDS: MAG HYDROX/AL HYDROX/SIMETH 30 ML UNIT-DOSE CUP PO PRN (10:19)
[2017-03-08] MEDS: THIAMINE HCL 100 MG TABLET (FP) PO SCH (21:32)
[2017-03-08] MEDS: LATANOPROST 0.005% OPHTH SOLN 2.5ML BOTTLE OU SCH (21:32)
[2017-03-08] MEDS: ALLOPURINOL 100 MG TABLET (FP) PO SCH (21:33)
[2017-03-08] MEDS: diphenhydrAMINE HCL 50 MG CAPSULE PO PRN (21:33)
[2017-03-08] MEDS: TAMSULOSIN HCL 0.4 MG CAP.ER.24H (FP) PO SCH (21:33)
[2017-03-08] MEDS: amLODIPine BESYLATE 5 MG TABLET (FP) PO SCH (21:33)
[2017-03-08] MEDS: DUTASTERIDE 0.5 MG CAP (FP) PO SCH (21:33)
[2017-03-08] MEDS: ENALAPRIL MALEATE 10 MG TABLET (FP) PO SCH (21:33)
[2017-03-09] MEDS: PRENATAL VITAMINS W/ FOLIC ACID TABLET (FP) PO SCH (10:15)
[2017-03-09] MEDS: IBUPROFEN 400 MG TABLET (FP) PO PRN (10:16)
[2017-03-09] MEDS: ACETAMINOPHEN 325 MG TABLET (FP) PO PRN (11:32)
[2017-03-09] MEDS: THIAMINE HCL 100 MG TABLET (FP) PO SCH (21:18)
[2017-03-09] MEDS: ALLOPURINOL 100 MG TABLET (FP) PO SCH (21:18)
[2017-03-09] MEDS: ENALAPRIL MALEATE 10 MG TABLET (FP) PO SCH (21:18)
[2017-03-09] MEDS: LATANOPROST 0.005% OPHTH SOLN 2.5ML BOTTLE OU SCH (21:18)
[2017-03-09] MEDS: DUTASTERIDE 0.5 MG CAP (FP) PO SCH (21:18)
[2017-03-09] MEDS: amLODIPine BESYLATE 5 MG TABLET (FP) PO SCH (21:18)
[2017-03-09] MEDS: TAMSULOSIN HCL 0.4 MG CAP.ER.24H (FP) PO SCH (21:18)
[2017-03-09] MEDS: diphenhydrAMINE HCL 50 MG CAPSULE PO PRN (21:19)
[2017-03-10] MEDS: PRENATAL VITAMINS W/ FOLIC ACID TABLET (FP) PO SCH (09:47)
[2017-03-10] MEDS: IBUPROFEN 400 MG TABLET (FP) PO PRN (09:47)
[2017-03-10] MEDS: ENALAPRIL MALEATE 10 MG TABLET (FP) PO SCH (21:25)
[2017-03-10] MEDS: TAMSULOSIN HCL 0.4 MG CAP.ER.24H (FP) PO SCH (21:25)
[2017-03-10] MEDS: amLODIPine BESYLATE 5 MG TABLET (FP) PO SCH (21:25)
[2017-03-10] MEDS: THIAMINE HCL 100 MG TABLET (FP) PO SCH (21:25)
[2017-03-10] MEDS: diphenhydrAMINE HCL 50 MG CAPSULE PO PRN (21:26)
[2017-03-10] MEDS: DUTASTERIDE 0.5 MG CAP (FP) PO SCH (21:27)
[2017-03-10] MEDS: LATANOPROST 0.005% OPHTH SOLN 2.5ML BOTTLE OU SCH (22:10)
[2017-03-10] MEDS: ALLOPURINOL 100 MG TABLET (FP) PO SCH (22:11)
[2017-03-11] MEDS: IBUPROFEN 400 MG TABLET (FP) PO PRN (06:11)
[2017-03-11] MEDS: PRENATAL VITAMINS W/ FOLIC ACID TABLET (FP) PO SCH (10:01)
[2017-03-11] MEDS: ACETAMINOPHEN 325 MG TABLET (FP) PO PRN (10:03)
[2017-03-11] MEDS ORDERED: PT OWN MED DRAWER 7, Y5N ONE ×3 (20:26→23:18)
[2017-03-11] MEDS: amLODIPine BESYLATE 5 MG TABLET (FP) PO SCH (22:20)
[2017-03-11] MEDS: ALLOPURINOL 100 MG TABLET (FP) PO SCH (22:20)
[2017-03-11] MEDS: TAMSULOSIN HCL 0.4 MG CAP.ER.24H (FP) PO SCH (22:20)
[2017-03-11] MEDS: ENALAPRIL MALEATE 10 MG TABLET (FP) PO SCH (22:20)
[2017-03-11] MEDS: LATANOPROST 0.005% OPHTH SOLN 2.5ML BOTTLE OU SCH (22:20)
[2017-03-11] MEDS: DUTASTERIDE 0.5 MG CAP (FP) PO SCH (22:21)
[2017-03-11] MEDS: THIAMINE HCL 100 MG TABLET (FP) PO SCH (22:21)
[2017-03-11] MEDS: diphenhydrAMINE HCL 50 MG CAPSULE PO PRN (22:21)
[2017-03-12] MEDS: PRENATAL VITAMINS W/ FOLIC ACID TABLET (FP) PO SCH (10:02)
[2017-03-12] MEDS: IBUPROFEN 400 MG TABLET (FP) PO PRN (10:02)
[2017-03-12] MEDS: TAMSULOSIN HCL 0.4 MG CAP.ER.24H (FP) PO SCH (21:18)
[2017-03-12] MEDS: DUTASTERIDE 0.5 MG CAP (FP) PO SCH (21:18)
[2017-03-12] MEDS: amLODIPine BESYLATE 5 MG TABLET (FP) PO SCH (21:18)
[2017-03-12] MEDS: LATANOPROST 0.005% OPHTH SOLN 2.5ML BOTTLE OU SCH (21:18)
[2017-03-12] MEDS: THIAMINE HCL 100 MG TABLET (FP) PO SCH (21:19)
[2017-03-12] MEDS: diphenhydrAMINE HCL 50 MG CAPSULE PO PRN (21:19)
[2017-03-12] MEDS: ALLOPURINOL 100 MG TABLET (FP) PO SCH (21:19)
[2017-03-12] MEDS: ENALAPRIL MALEATE 10 MG TABLET (FP) PO SCH (21:19)
[2017-03-13] MEDS: IBUPROFEN 400 MG TABLET (FP) PO PRN ×2 (09:56→21:21)
[2017-03-13] MEDS: PRENATAL VITAMINS W/ FOLIC ACID TABLET (FP) PO SCH (09:56)
[2017-03-13] MEDS: diphenhydrAMINE HCL 50 MG CAPSULE PO PRN (21:21)
[2017-03-13] MEDS: amLODIPine BESYLATE 5 MG TABLET (FP) PO SCH (21:21)
[2017-03-13] MEDS: LATANOPROST 0.005% OPHTH SOLN 2.5ML BOTTLE OU SCH (21:21)
[2017-03-13] MEDS: TAMSULOSIN HCL 0.4 MG CAP.ER.24H (FP) PO SCH (21:21)
[2017-03-13] MEDS: ENALAPRIL MALEATE 10 MG TABLET (FP) PO SCH (21:21)
[2017-03-13] MEDS: DUTASTERIDE 0.5 MG CAP (FP) PO SCH (21:21)
[2017-03-13] MEDS: ALLOPURINOL 100 MG TABLET (FP) PO SCH (21:21)
[2017-03-13] MEDS: THIAMINE HCL 100 MG TABLET (FP) PO SCH (21:21)
[2017-03-14] MEDS: PRENATAL VITAMINS W/ FOLIC ACID TABLET (FP) PO SCH (10:02)
[2017-03-14] MEDS: IBUPROFEN 400 MG TABLET (FP) PO PRN (10:02)
[2017-03-14] MEDS: TAMSULOSIN HCL 0.4 MG CAP.ER.24H (FP) PO SCH (21:14)
[2017-03-14] MEDS: THIAMINE HCL 100 MG TABLET (FP) PO SCH (21:14)
[2017-03-14] MEDS: ENALAPRIL MALEATE 10 MG TABLET (FP) PO SCH (21:14)
[2017-03-14] MEDS: DUTASTERIDE 0.5 MG CAP (FP) PO SCH (21:14)
[2017-03-14] MEDS: amLODIPine BESYLATE 5 MG TABLET (FP) PO SCH (21:14)
[2017-03-14] MEDS: ALLOPURINOL 100 MG TABLET (FP) PO SCH (21:14)
[2017-03-14] MEDS: LATANOPROST 0.005% OPHTH SOLN 2.5ML BOTTLE OU SCH (21:14)
[2017-03-14] MEDS: diphenhydrAMINE HCL 50 MG CAPSULE PO PRN (21:15)
[2017-03-15] MEDS: PRENATAL VITAMINS W/ FOLIC ACID TABLET (FP) PO SCH (09:57)
[2017-03-15] MEDS: IBUPROFEN 400 MG TABLET (FP) PO PRN ×2 (09:57→21:21)
[2017-03-15] MEDS: TAMSULOSIN HCL 0.4 MG CAP.ER.24H (FP) PO SCH (21:19)
[2017-03-15] MEDS: amLODIPine BESYLATE 5 MG TABLET (FP) PO SCH (21:19)
[2017-03-15] MEDS: ENALAPRIL MALEATE 10 MG TABLET (FP) PO SCH (21:19)
[2017-03-15] MEDS: ALLOPURINOL 100 MG TABLET (FP) PO SCH (21:20)
[2017-03-15] MEDS: THIAMINE HCL 100 MG TABLET (FP) PO SCH (21:20)
[2017-03-15] MEDS: diphenhydrAMINE HCL 50 MG CAPSULE PO PRN (21:21)
[2017-03-15] MEDS: guaiFENesin/D-METHORPHAN HB 10 ML UNIT-DOSE CUPS PO PRN (21:22)
[2017-03-15] MEDS: LATANOPROST 0.005% OPHTH SOLN 2.5ML BOTTLE OU SCH (21:23)
[2017-03-15] MEDS: DUTASTERIDE 0.5 MG CAP (FP) PO SCH (21:24)
[2017-03-16 06:39] VITALS: TEMP 98.1
[2017-03-16] MEDS: PRENATAL VITAMINS W/ FOLIC ACID TABLET (FP) PO SCH (10:10)
[2017-03-16] MEDS: IBUPROFEN 400 MG TABLET (FP) PO PRN ×2 (10:11→21:22)
[2017-03-16] MEDS: TAMSULOSIN HCL 0.4 MG CAP.ER.24H (FP) PO SCH (21:20)
[2017-03-16] MEDS: LATANOPROST 0.005% OPHTH SOLN 2.5ML BOTTLE OU SCH (21:20)
[2017-03-16] MEDS: ALLOPURINOL 100 MG TABLET (FP) PO SCH (21:20)
[2017-03-16] MEDS: amLODIPine BESYLATE 5 MG TABLET (FP) PO SCH (21:20)
[2017-03-16] MEDS: DUTASTERIDE 0.5 MG CAP (FP) PO SCH (21:20)
[2017-03-16] MEDS: THIAMINE HCL 100 MG TABLET (FP) PO SCH (21:20)
[2017-03-16] MEDS: ENALAPRIL MALEATE 10 MG TABLET (FP) PO SCH (21:20)
[2017-03-17 06:49] VITALS: BP 123/74; PULSE 72
[2017-03-17] MEDS: PRENATAL VITAMINS W/ FOLIC ACID TABLET (FP) PO SCH (10:07)
[2017-03-17] MEDS: IBUPROFEN 400 MG TABLET (FP) PO PRN ×2 (10:08→21:23)
[2017-03-17] MEDS: amLODIPine BESYLATE 5 MG TABLET (FP) PO SCH (21:20)
[2017-03-17] MEDS: TAMSULOSIN HCL 0.4 MG CAP.ER.24H (FP) PO SCH (21:20)
[2017-03-17] MEDS: ENALAPRIL MALEATE 10 MG TABLET (FP) PO SCH (21:20)
[2017-03-17] MEDS: DUTASTERIDE 0.5 MG CAP (FP) PO SCH (21:21)
[2017-03-17] MEDS: THIAMINE HCL 100 MG TABLET (FP) PO SCH (21:21)
[2017-03-17] MEDS: LATANOPROST 0.005% OPHTH SOLN 2.5ML BOTTLE OU SCH (21:22)
[2017-03-17] MEDS: diphenhydrAMINE HCL 50 MG CAPSULE PO PRN (21:23)
[2017-03-17] MEDS: ALLOPURINOL 100 MG TABLET (FP) PO SCH (22:59)
[2017-03-18] MEDS: PRENATAL VITAMINS W/ FOLIC ACID TABLET (FP) PO SCH (09:33)
[2017-03-18] MEDS: IBUPROFEN 400 MG TABLET (FP) PO PRN (09:33)
--- NOTE | 2017-03-18 10:10 | PN ---
Psychiatric Progress Note Vital Signs: Vital Signs Period Temp Pulse Resp BP Sys/Goldman Pulse Ox Last 24 Hr 18-18 Date of Session: 03/18/17 Chief Complaint:: discharge visit HPI: Patient has addressed alcohol, cocaine, cannabis dependence. ROS: HTN, low back pain, GERD, glaucoma, DVT prophilaxis medically managed. Current Medications: Active Medications Generic Name Dose Route Start Last Admin Trade Name Freq PRN Reason Stop Dose Admin Acetaminophen 650 mg 02/20/17 17:45 03/11/17 10:03 Tylenol - PO 650 mg Q4H PRN Administration FEVER OR PAIN Al Hydroxide/Mg Hydroxide 30 ml 02/20/17 17:45 03/08/17 10:19 Mylanta Oral Suspension - PO 30 ml Q6H PRN Administration DYSPEPSIA Allopurinol 100 mg 02/20/17 22:00 03/17/17 22:59 Zyloprim - PO Not Given HS DARIEN Amlodipine Besylate 5 mg 02/20/17 22:00 03/17/17 21:20 Norvasc - PO 5 mg HS DARIEN Administration Diphenhydramine HCl 50 mg 02/20/17 17:45 03/17/17 21:23 Benadryl - PO 50 mg HSMR1 PRN Administration INSOMNIA Dutasteride 0.5 mg 02/20/17 22:00 03/17/17 21:21 Avodart - PO 0.5 mg HS DARIEN Administration Enalapril Maleate 10 mg 02/20/17 22:00 03/17/17 21:20 Vasotec - PO 10 mg HS DARIEN Administration Eucalyptus/Menthol/Phenol/Sorbitol 1 each 02/20/17 17:45 03/07/17 09:59 Cepastat Lozenge - MM 1 each Q4H PRN Administration SORE THROAT Guaifenesin 10 ml 02/20/17 17:45 03/15/17 21:22 Robitussin Dm - PO 10 ml Q6H PRN Administration COUGH Ibuprofen 400 mg 02/20/17 17:45 03/18/17 09:33 Motrin - PO 400 mg Q6H PRN Administration SEVERE PAIN Latanoprost 1 drop 02/20/17 22:00 03/17/17 21:22 Xalatan 0.005% Eye Drops - OU 1 drop HS DARIEN Administration Loperamide HCl 4 mg 02/20/17 17:45 02/21/17 22:06 Imodium - PO 4 mg Q6H PRN Administration DIARRHEA Magnesium Citrate 300 ml 02/20/17 17:45 Citroma - PO Q48H PRN CONSTIPATION Magnesium Hydroxide 30 ml 02/20/17 17:45 Milk Of Magnesia - PO DAILY PRN CONSTIPATION Multivit/Folic Acid/Iron 1 tab 02/21/17 10:00 03/18/17 09:33 Vitamins (Sjr) - PO 1 tab DAILY DARIEN Administration Pseudoephedrine/Triprolidine 1 combo 02/20/17 17:45 Actifed - PO TID PRN NASAL CONGESTION Tamsulosin HCl 0.4 mg 02/20/17 22:00 03/17/17 21:20 Flomax - PO 0.4 mg HS DARIEN Administration Thiamine HCl 100 mg 02/20/17 22:00 03/17/17 21:21 Vitamin B1 - PO 100 mg HS DARIEN Administration Current Side Effect: No Lab tests ordered: No Lab tests reviewed: Yes Provider note:: Patient has completed today his treatment and met his goals, will continue to address his issues at [facility] outpatient treatment program, he gained insights into importnace of changing attitudes for the utilization of supports to prevent relapses.He was educated on his addiction, implications and consequences on his physical and mental health, the importance to maintain sobriety. Supportive psychotherapy provided, patient is stable for discharge today. Total face to face time:: 25 Mental Status Exam - Mental Status Exam Alert and Oriented to: Time, Place, Person Cognitive Function: Good Patient Appearance: Well Groomed Mood: Hopeful Affect: Appropriate, Mood Congruent Patient Behavior: Cooperative Speech Pattern: Appropriate Voice Loudness: Normal Thought Process: Intact, Goal Oriented Thought Disorder: Not Present Hallucinations: None Suicidal Ideation: None Homicidal Ideation: None Insight/Judgement: Good Sleep: Well Appetite: Good Muscle strength/Tone: Normal Gait/Station: Normal Psychiatric Treatment Plan - Problem List (1) Alcohol dependence Current Visit: Yes (2) Cannabis dependence Current Visit: Yes (3) Gout Current Visit: Yes Qualifiers: Gout site: multiple sites Gout etiology: other secondary cause Chronicity: chronic Presence of tophus: with tophus Qualified Code(s) : M1A.49X1 - Other secondary chronic gout, multiple sites, with tophus (tophi) (4) HTN (hypertension) Current Visit: Yes (5) Glaucoma of both eyes Current Visit: Yes Qualifiers: Glaucoma type: unspecified Qualified Code(s): H40.9 - Unspecified glaucoma (6) Cocaine dependence Current Visit: No Qualifiers: Substance use status: uncomplicated Qualified Code(s): F14.20 - Cocaine dependence, uncomplicated (7) DVT prophylaxis Current Visit: No (8) Glaucoma Current Visit: No Qualifiers: Glaucoma type: open-angle Laterality: bilateral
== END 2017-03-18 09:30 | disposition home or self-care (01) | DRG 895 ==
LOC: YASAS 13:39 → MERGE 19:34 → Y3N 19:34 → Y3W 02-24 11:16 → Y5N 02-24 14:53
PROVIDERS: ADMIT Psychiatry & Neurology Psychiatry; ATTEND Psychiatry & Neurology Psychiatry
PROC: HZ2ZZZZ Detoxification Services for Substance Abuse Treatment (ICD-10-PCS; principal; 2017-02-21)
PROC: HZ42ZZZ Group Counseling for Substance Abuse Treatment, Cognitive-Behavioral (ICD-10-PCS; 2017-02-24)
DX: F19.230 Other psychoactive substance dependence with withdrawal, uncomplicated (principal); F14.20 Cocaine dependence, uncomplicated; F10.230 Alcohol dependence with withdrawal, uncomplicated; F12.20 Cannabis dependence, uncomplicated; K21.9 Gastro-esophageal reflux disease without esophagitis; I10 Essential (primary) hypertension; M1A.49X1 Other secondary chronic gout, multiple sites, with tophus (tophi); H40.10X0 Unspecified open-angle glaucoma, stage unspecified; J40 Bronchitis, not specified as acute or chronic; R82.90 Unspecified abnormal findings in urine; Z87.891 Personal history of nicotine dependence
CPT/HCPCS: 36415; 71010-TC; 80053; 81003; 85027; 86593; 90670; 93005; 93010

== ENCOUNTER 2018-08-28 15:16 | Inpatient (IN) | payer OTHER ==
[2018-08-28 15:18] VITALS: BMI 26.6
--- NOTE | 2018-08-28 15:27 | HP ---
CIWA Score Nausea/Vomitin Muscle Tremors: 2 Anxiety: 2 Agitation: 2 Paroxysmal Sweats: 1-Minimal Palms Moist Orientation: 0-Oriented Tacttile Disturbances: 1-Very Mild Itch/Numbness Auditory Disturbances: 1-Very Mild Visual Disturbances: 0-None Headache: 2-Mild CIWA-Ar Total Score: 13 - Admission Criteria OASAS Guidelines: Admission for Medically Managed Detox: Requires at least one of the followin. CIWA greater than 12 2. Seizures within the past 24 hours 3. Delirium tremens within the past 24 hours 4. Hallucinations within the past 24 hours 5. Acute intervention needed for co occurring medical disorder 6. Acute intervention needed for co occurring psychiatric disorder 7. Severe withdrawal that cannot be handled at a lower level of care (continued vomiting, continued diarrhea, abnormal vital signs) requiring intravenous medication and/or fluids 8. Patient presents the following: CIWA greater than 12 Admission Criteria Met: Admission criteria met Admission ROS BHS - HPI Chief Complaint: I need help to stop drinking alcohol,cocaine Allergies/Adverse Reactions: Allergies Allergy/AdvReac Type Severity Reaction Status Date / Time orange Allergy Verified 08/28/18 16:43 strawberry [Jessie] Allergy Verified 08/28/18 16:43 carrot Allergy Uncoded 08/28/18 16:43 History of Present Illness: this 78 years old male with alcohol and cocaine dependence,seeking detox, withdrawal symptom,last treatment rehab 02/20/17 to 03/18/17. stated has insomnia history of hypertension s/p bilateral knee replacement bph gouty arthritis no significant period of sobriety Exam Limitations: No Limitations - Ebola screening Have you traveled outside of the country in the last 21 days: No Have you been sick,other than usual withdrawal symptoms: No - Review of Systems Constitutional: Loss of Appetite, Malaise, Night Sweats, Changes in sleep, Weakness EENT: reports: Nose Congestion Respiratory: reports: No Symptoms reported Cardiac: reports: No Symptoms Reported GI: reports: Nausea, Poor Appetite, Abdominal cramping : reports: No Symptoms Reported Musculoskeletal: reports: Back Pain, Muscle Pain, Other (s/p bilaterl knee replacement) Integumentary: reports: Dryness Neuro: reports: Tremors Endocrine: reports: No Symptoms Reported Hematology: reports: No Symptoms Reported Psychiatric: reports: No Sypmtoms Reported, Judgement Intact, Mood/Affect Appropiate, Orientated x3 Other Systems: Reviewed and Negative Patient History - Patient Medical History Hx Anemia: No Hx Asthma: No Hx Chronic Obstructive Pulmonary Disease (COPD): No Hx Cancer: No Hx Cardiac Disorders: No Hx Congestive Heart Failure: No Hx Hypertension: No Hx Hypercholesterolemia: No Hx Pacemaker: No HX Cerebrovascular Accident: No Hx Seizures: No Hx Dementia: No Hx Diabetes: No Hx Gastrointestinal Disorders: No Hx Liver Disease: No Hx Genitourinary Disorders: No Hx Sexually Transmitted Disorders: No Hx Renal Disease (ESRD): No Hx Thyroid Disease: No Hx Human Immunodeficiency Virus (HIV): No (last negative in 2018) Hx Hepatitis C: No Hx Depression: Yes Hx Suicide Attempt: No Hx Bipolar Disorder: No Hx Schizophrenia: No Other Medical History: no suicidal,no homicidal,s/p bilaterl knee replacement - Patient Surgical History Past Surgical History: Yes Hx Neurologic Surgery: No Hx Cataract Extraction: No Hx Cardiac Surgery: No Hx Lung Surgery: No Hx Breast Surgery: No Hx Breast Biopsy: No Hx Abdominal Surgery: No Hx Appendectomy: Yes (1967) Hx Cholecystectomy: No Hx Genitourinary Surgery: No Hx Section: No Hx Orthopedic Surgery: Yes (total knee replacement 2014 & 2015) Anesthesia Reaction: No - PPD History Previous Implant?: Yes Documented Results: Positive w/o proof PPD to be Administered?: No - Smoking Cessation Smoking history: Former smoker Have you smoked in the past 12 months: No If you are a former smoker, when did you quit?: 50 yrs ago Hx Chewing Tobacco Use: No Initiated information on smoking cessation: Yes 'Breaking Loose' booklet given: 08/29/18 - Substance & Tx. History Hx Alcohol Use: Yes Hx Substance Use: Yes Substance Use Type: Alcohol, Cocaine, Marijuana Hx Substance Use Treatment: Yes ([facility] 02/20/17 to 03/28/17) - Substances Abused Alcohol Route: Oral Frequency: Daily Amount used: 1 pint of whiskey/6 pcks of 12 ozs of beer Age of first use: 16 Date of Last Use: 08/27/18 Cocaine Route: Smoking Frequency: Daily Amount used: 100$ Age of first use: 41 Date of Last Use: 08/27/18 Marijuana/Hashish Route: Smoking Frequency: 3-6 times per week Amount used: 10$ Age of first use: 21 Date of Last Use: 08/27/18 Family Disease History - Family Disease History Family Disease History: Heart Disease: Father, Mother (HTN), Brother (HTN) Admission Physical Exam [facility] - Vital Signs Vital Signs: Vital Signs - 24 hr 08/28/18 15:17 Temperature 97.1 F L Pulse Rate 74 Respiratory 18 Rate Blood Pressure 139/82 - Physical General Appearance: Yes: Mild Distress, Irritable, Sweating, Anxious HEENTM: Yes: Normal ENT Inspection, THIEN, Pharynx Normal Respiratory: Yes: Lungs Clear, Normal Breath Sounds, No Respiratory Distress Neck: Yes: Within Normal Limits, Supple, Trachea in good position Breast: Yes: Within Normal Limits Cardiology: Yes: Within Normal Limits, Regular Rhythm, Regular Rate, S1, S2 Abdominal: Yes: Within Normal Limits, Normal Bowel Sounds, Soft Genitourinary: Yes: Within Normal Limits Musculoskeletal: Yes: Back pain, Muscle Pain Extremities: Yes: Tremors Neurological: Yes: machine filler servicer II-XII NML intact, Fully Oriented, Alert, Motor Strength 5/5 Integumentary: Yes: Dry Lymphatic: Yes: Within Normal Limits - Diagnostic (1) Alcohol dependence with uncomplicated withdrawal Current Visit: No Status: Acute (2) Cannabis dependence Current Visit: No Status: Acute (3) Cocaine dependence, uncomplicated Current Visit: No Status: Acute (4) Gout Current Visit: No Status: Acute Qualifiers: Gout site: multiple sites Gout etiology: other secondary cause Chronicity : chronic Presence of tophus: with tophus Qualified Code(s): M1A.49X1 - Other secondary chronic gout, multiple sites, with tophus (tophi) (5) HTN (hypertension) Current Visit: No Status: Acute (6) Glaucoma of both eyes Current Visit: No Status: Chronic Qualifiers: Glaucoma type: unspecified Qualified Code(s): H40.9 - Unspecified glaucoma Cleared for Admission S - Detox or Rehab [facility] Level of Care: Medically Managed Detox Regimen/Protocol: Librium Screened but not Admitted - Documentation of Visit Screened but not Admitted: No [facility] Breath Alcohol Content Breath Alcohol Content: 0 Urine Drug Screen - Results Drug Screen Negative: No Urine Drug Screen Results: THC-Marijuana, BAUDILIO-Cocaine Inpatient Rehab Admission - Rehab Decision to Admit Inpatient rehab admission?: No
[2018-08-28] MEDS ORDERED: guaiFENesin/D-METHORPHAN HB 10 ML UNIT-DOSE CUPS PO PRN (15:49)
[2018-08-28] MEDS ORDERED: MAGNESIUM CITRATE 300 ML BOTTLE PO PRN (15:49)
[2018-08-28] MEDS ORDERED: LOPERAMIDE HCL 2 MG CAPSULE PO PRN (15:49)
[2018-08-28] MEDS ORDERED: MAGNESIUM HYDROX 2400MG/30ML ORAL SUSPENSION 30 ML CUP PO PRN (15:49)
[2018-08-28] MEDS ORDERED: P-EPHED 60MG/TRIPROLIDI 2.5MG TABLET PO PRN (15:49)
[2018-08-28] MEDS: chlordiazePOXIDE HCL 25 MG CAPSULE PO PRN (19:03)
[2018-08-28] MEDS ORDERED: THIAMINE HCL 100 MG TABLET (FP) PO SCH (22:00)
[2018-08-28] MEDS ORDERED: MELATONIN 5 MG TABLETS PO PRN (22:00)
[2018-08-28] MEDS: RANITIDINE HCL 150 MG TABLET (FP) PO SCH (23:00)
[2018-08-28] MEDS: chlordiazePOXIDE HCL 25 MG CAPSULE PO SCH (23:01)
[2018-08-28] MEDS: LATANOPROST 0.005% OPHTH SOLN 2.5ML BOTTLE OU SCH (23:01)
[2018-08-28] MEDS: THIAMINE HCL 100 MG TABLET (FP) PO SCH (23:01)
[2018-08-28] MEDS: ALLOPURINOL 100 MG TABLET (FP) PO SCH (23:58)
[2018-08-29] MEDS: chlordiazePOXIDE HCL 25 MG CAPSULE PO SCH ×4 (06:10→22:01)
--- NOTE | 2018-08-29 10:18 | PN ---
S CIWA - CIWA Score Nausea/Vomitin-No Nausea/No Vomiting Muscle Tremors: 3 Anxiety: 1-Mildly Anxious Agitation: 2 Paroxysmal Sweats: 1-Minimal Palms Moist Orientation: 1-Uncertain about Date Tacttile Disturbances: 0-None Auditory Disturbances: 0-None Visual Disturbances: 0-None Headache: 2-Mild CIWA-Ar Total Score: 10 BHS Progress Note (SOAP) Subjective: tremor sweating mild anxiety otherwise feeling ok Objective: 08/29/18 10:19 Vital Signs Temperature 97.0 F L 08/29/18 09:14 Pulse Rate 71 08/29/18 09:14 Respiratory Rate 18 08/29/18 09:14 Blood Pressure 105/57 L 08/29/18 09:14 O2 Sat by Pulse Oximetry (%) lab pending Assessment: 08/29/18 10:19 alcohol withdrawal sx Plan: continue detox
[2018-08-29] MEDS: ENALAPRIL MALEATE 10 MG TABLET (FP) PO SCH (10:36)
[2018-08-29] MEDS: PRENATAL VITAMINS W/ FOLIC ACID TABLET (FP) PO SCH (10:36)
[2018-08-29] MEDS: amLODIPine BESYLATE 5 MG TABLET (FP) PO SCH (10:36)
[2018-08-29] MEDS: RANITIDINE HCL 150 MG TABLET (FP) PO SCH ×2 (10:36→22:01)
[2018-08-29 11:46] LABS: ALBUMIN 3.4 g/dl (3.4-5.0); ALK PHOS 145 U/L (45-117); ANION GAP 11 MMOL/L (8-16); BILIRUBIN,TOTAL 0.7 mg/dL (0.2-1); BLOOD UREA NITROGEN 29 mg/dL (7-18); CALCIUM 8.3 mg/dL (8.5-10.1); CHLORIDE 110 mmol/L (98-107); CO2 22 mmol/L (21-32); CREATININE 1.4 mg/dL (0.55-1.3); GLUCOSE,RANDOM 93 mg/dL (74-106); SGOT/AST 28 U/L (15-37); SGPT/ALT 29 U/L (13-61); SODIUM 142 mmol/L (136-145); TOT PROT 6.9 g/dl (6.4-8.2)
[2018-08-29] MEDS: chlordiazePOXIDE HCL 25 MG CAPSULE PO PRN (14:04)
[2018-08-29 18:25] LABS: URINE APPEARANCE CLEAR; URINE BILIRUBIN NEGATIVE (<2.0 mg/dL); URINE COLOR YELLOW; URINE GLUCOSE (UA) NEGATIVE (NEGATIVE); URINE KETONE NEGATIVE (NEGATIVE); URINE LEUK ESTERASE NEGATIVE (NEGATIVE); URINE NITRITE NEGATIVE (NEGATIVE); URINE PROTEIN NEGATIVE (NEGATIVE); URINE UROBILINOGEN 4.0 E.U/dl mg/dL (0.2-1.0)
[2018-08-29] MEDS: LATANOPROST 0.005% OPHTH SOLN 2.5ML BOTTLE OU SCH (22:00)
[2018-08-29] MEDS: THIAMINE HCL 100 MG TABLET (FP) PO SCH (22:01)
[2018-08-29] MEDS: ALLOPURINOL 100 MG TABLET (FP) PO SCH (22:02)
[2018-08-29] MEDS: MENTHOL/PHENOL 1 EACH UD MM PRN (22:05)
[2018-08-30] MEDS: MAG HYDROX/AL HYDROX/SIMETH 30 ML UNIT-DOSE CUP PO PRN ×2 (00:59→20:51)
[2018-08-30] MEDS: ACETAMINOPHEN 325 MG TABLET (FP) PO PRN ×2 (05:55→17:56)
[2018-08-30] MEDS: chlordiazePOXIDE HCL 25 MG CAPSULE PO SCH ×3 (05:56→17:51)
[2018-08-30] MEDS: RANITIDINE HCL 150 MG TABLET (FP) PO SCH ×2 (10:19→22:04)
[2018-08-30] MEDS: ENALAPRIL MALEATE 10 MG TABLET (FP) PO SCH (10:19)
[2018-08-30] MEDS: PRENATAL VITAMINS W/ FOLIC ACID TABLET (FP) PO SCH (10:20)
[2018-08-30] MEDS: amLODIPine BESYLATE 5 MG TABLET (FP) PO SCH (10:21)
--- NOTE | 2018-08-30 10:50 | PN ---
S CIWA - CIWA Score Nausea/Vomitin-Mild Nausea/No Vomiting Muscle Tremors: 3 Anxiety: 2 Agitation: 1-Slight > Activity Paroxysmal Sweats: 1-Minimal Palms Moist Orientation: 0-Oriented Tacttile Disturbances: 0-None Auditory Disturbances: 0-None Visual Disturbances: 0-None Headache: 1-Very Mild CIWA-Ar Total Score: 9 BHS Progress Note (SOAP) Subjective: reported both knees replacement 2016 and chronic back pain refuses cane as ambulation aide tremor sweating anxiety Objective: 08/30/18 10:49 Vital Signs Temperature 98.4 F 08/30/18 09:10 Pulse Rate 68 08/30/18 09:10 Respiratory Rate 18 08/30/18 09:10 Blood Pressure 106/73 08/30/18 09:10 O2 Sat by Pulse Oximetry (%) Laboratory Last Values WBC Cancelled 08/29/18 07:50 Corrected WBC (auto) Cancelled 08/29/18 07:50 RBC Cancelled 08/29/18 07:50 Hgb Cancelled 08/29/18 07:50 Hct Cancelled 08/29/18 07:50 MCV Cancelled 08/29/18 07:50 MCH Cancelled 08/29/18 07:50 MCHC Cancelled 08/29/18 07:50 RDW Cancelled 08/29/18 07:50 Plt Count Cancelled 08/29/18 07:50 MPV Cancelled 08/29/18 07:50 Manual Slide Review Cancelled 08/29/18 07:50 Platelet Comment Cancelled 08/29/18 07:50 Sodium 142 mmol/L (136-145) 08/29/18 07:50 Potassium 4.0 mmol/L (3.5-5.1) 08/29/18 07:50 Chloride 110 mmol/L (98-107) H 08/29/18 07:50 Carbon Dioxide 22 mmol/L (21-32) 08/29/18 07:50 Anion Gap 11 MMOL/L (8-16) 08/29/18 07:50 BUN 29 mg/dL (7-18) H 08/29/18 07:50 Creatinine 1.4 mg/dL (0.55-1.3) H 08/29/18 07:50 Creat Clearance w eGFR 49.14 (>60) 08/29/18 07:50 Random Glucose 93 mg/dL (74-106) 08/29/18 07:50 Calcium 8.3 mg/dL (8.5-10.1) L 08/29/18 07:50 Total Bilirubin 0.7 mg/dL (0.2-1) 08/29/18 07:50 AST 28 U/L (15-37) 08/29/18 07:50 ALT 29 U/L (13-61) 08/29/18 07:50 Alkaline Phosphatase 145 U/L (45-117) H 08/29/18 07:50 Total Protein 6.9 g/dl (6.4-8.2) 08/29/18 07:50 Albumin 3.4 g/dl (3.4-5.0) 08/29/18 07:50 Urine Color Yellow 08/29/18 14:11 Urine Appearance Clear 08/29/18 14:11 Urine pH 6.0 (5.0-8.0) 08/29/18 14:11 Ur Specific [place] 1.024 (1.010-1.035) 08/29/18 14:11 Urine Protein Negative (NEGATIVE) 08/29/18 14:11 Urine Glucose (UA) Negative (NEGATIVE) 08/29/18 14:11 Urine Ketones Negative (NEGATIVE) 08/29/18 14:11 Urine Blood Negative (NEGATIVE) 08/29/18 14:11 Urine Nitrite Negative (NEGATIVE) 08/29/18 14:11 Urine Bilirubin Negative (<2.0 mg/dL) 08/29/18 14:11 Urine Urobilinogen 4.0 e.u/dl mg/dL (0.2-1.0) 08/29/18 14:11 Ur Leukocyte Esterase Negative (NEGATIVE) 08/29/18 14:11 RPR Titer Nonreactive (NONREACTIVE) 08/29/18 07:50 lab noted wbc pending 08/30/18 10:51 Assessment: 08/30/18 10:51 withdrawal sx Plan: continue detox
[2018-08-30 11:50] LABS: HEMATOCRIT 41.2 % (35.4-49); HEMOGLOBIN 14.1 GM/dL (11.7-16.9); MCH 32.7 pg (25.7-33.7); MCHC 34.2 g/dl (32.0-35.9); MEAN CELL VOLUME 95.5 fl (80-96); PLATELET COUNT 133 K/MM3 (134-434); RBC 4.31 M/mm3 (4.00-5.60); RDW 15.1 % (11.9-15.9); WHITE BLOOD COUNT 7.6 K/mm3 (4.0-10.0)
[2018-08-30] MEDS: IBUPROFEN 400 MG TABLET (FP) PO PRN ×2 (13:51→22:09)
[2018-08-30] MEDS: THIAMINE HCL 100 MG TABLET (FP) PO SCH (22:03)
[2018-08-30] MEDS: LATANOPROST 0.005% OPHTH SOLN 2.5ML BOTTLE OU SCH (22:03)
[2018-08-30] MEDS: ALLOPURINOL 100 MG TABLET (FP) PO SCH (22:04)
[2018-08-30] MEDS: chlordiazePOXIDE 5 MG CAPSULE PO SCH (22:06)
[2018-08-30] MEDS: MENTHOL/PHENOL 1 EACH UD MM PRN (22:10)
[2018-08-31] MEDS: ACETAMINOPHEN 325 MG TABLET (FP) PO PRN ×2 (02:32→22:35)
[2018-08-31] MEDS: chlordiazePOXIDE 5 MG CAPSULE PO SCH ×3 (06:38→17:45)
[2018-08-31] MEDS: IBUPROFEN 400 MG TABLET (FP) PO PRN ×2 (06:38→12:43)
[2018-08-31] MEDS: amLODIPine BESYLATE 5 MG TABLET (FP) PO SCH (10:16)
[2018-08-31] MEDS: RANITIDINE HCL 150 MG TABLET (FP) PO SCH ×2 (10:17→23:52)
[2018-08-31] MEDS: PRENATAL VITAMINS W/ FOLIC ACID TABLET (FP) PO SCH (10:17)
[2018-08-31] MEDS: ENALAPRIL MALEATE 10 MG TABLET (FP) PO SCH (10:17)
--- NOTE | 2018-08-31 15:07 | PN ---
[facility] Progress Note (SOAP) Subjective: pt here on day#3 of alcohol detox protocol. Pt states he needs to leave before for a social security benefits appointment. o/w pt has no complaints O: Vital Signs - 24 hr 08/30/18 08/30/18 08/31/18 17:55 22:08 00:30 Temperature 97.5 F L 96.4 F L Pulse Rate 73 70 Respiratory 17 18 18 Rate Blood Pressure 108/63 113/70 08/31/18 08/31/18 08/31/18 03:30 06:27 06:30 Temperature 96.3 F L Pulse Rate 65 Respiratory 18 18 18 Rate Blood Pressure 108/64 08/31/18 08/31/18 09:49 13:43 Temperature 98.9 F 98.4 F Pulse Rate 67 70 Respiratory 18 18 Rate Blood Pressure 119/71 128/70 Laboratory Tests 08/29/18 08/29/18 08/29/18 07:50 07:50 07:50 WBC Cancelled Corrected WBC (auto) Cancelled RBC Cancelled Hgb Cancelled Hct Cancelled MCV Cancelled MCH Cancelled MCHC Cancelled RDW Cancelled Plt Count Cancelled MPV Cancelled Manual Slide Review Cancelled Platelet Comment Cancelled Sodium 142 Potassium 4.0 Chloride 110 H Carbon Dioxide 22 Anion Gap 11 BUN 29 H Creatinine 1.4 H Creat Clearance w eGFR 49.14 Random Glucose 93 Calcium 8.3 L Total Bilirubin 0.7 AST 28 ALT 29 Alkaline Phosphatase 145 H Total Protein 6.9 Albumin 3.4 Urine Color Urine Appearance Urine pH Ur Specific [place] Urine Protein Urine Glucose (UA) Urine Ketones Urine Blood Urine Nitrite Urine Bilirubin Urine Urobilinogen Ur Leukocyte Esterase RPR Titer Nonreactive 08/29/18 08/30/18 08/30/18 14:11 08:00 08:00 WBC 7.6 Corrected WBC (auto) RBC 4.31 Hgb 14.1 Hct 41.2 MCV 95.5 MCH 32.7 MCHC 34.2 RDW 15.1 Plt Count 133 L MPV 9.0 Manual Slide Review Platelet Comment Sodium Potassium Chloride Carbon Dioxide Anion Gap BUN 20 H Creatinine Creat Clearance w eGFR Random Glucose Calcium Total Bilirubin AST ALT Alkaline Phosphatase Total Protein Albumin Urine Color Yellow Urine Appearance Clear Urine pH 6.0 Ur Specific [place] 1.024 Urine Protein Negative Urine Glucose (UA) Negative Urine Ketones Negative Urine Blood Negative Urine Nitrite Negative Urine Bilirubin Negative Urine Urobilinogen 4.0 e.u/dl Ur Leukocyte Esterase Negative RPR Titer a/p: continue alcohol detox protocol- pt doing well. Pt to go home in 1-2 days
[2018-08-31] MEDS: MAG HYDROX/AL HYDROX/SIMETH 30 ML UNIT-DOSE CUP PO PRN (18:01)
[2018-08-31] MEDS: MENTHOL/PHENOL 1 EACH UD MM PRN (22:53)
[2018-08-31] MEDS: LATANOPROST 0.005% OPHTH SOLN 2.5ML BOTTLE OU SCH (23:08)
[2018-08-31] MEDS: chlordiazePOXIDE HCL 10 MG CAPSULE PO SCH (23:08)
[2018-08-31] MEDS: THIAMINE HCL 100 MG TABLET (FP) PO SCH (23:08)
[2018-08-31] MEDS: ALLOPURINOL 100 MG TABLET (FP) PO SCH (23:09)
[2018-09-01] MEDS: chlordiazePOXIDE HCL 10 MG CAPSULE PO SCH (07:27)
[2018-09-01] MEDS: PRENATAL VITAMINS W/ FOLIC ACID TABLET (FP) PO SCH (09:10)
[2018-09-01] MEDS: amLODIPine BESYLATE 5 MG TABLET (FP) PO SCH (09:10)
[2018-09-01] MEDS: RANITIDINE HCL 150 MG TABLET (FP) PO SCH (09:10)
[2018-09-01] MEDS: ENALAPRIL MALEATE 10 MG TABLET (FP) PO SCH (09:10)
[2018-09-01 09:29] VITALS: BP 122/75; PULSE 75; TEMP 96.1
--- NOTE | 2018-09-01 11:37 | DS ---
[facility] Detox Discharge Summary Admission Date: 08/28/18 Discharge Date: 09/01/18 - History Present History: Alcohol Dependence Additional Comments: 78 years old male admitted on 08/28/18 for alcohol withdrawal stabilization completed detox regimen aftercare [facility] Pertinent Past History: encourage the patient keep medication list in wallet encourage the patient bring in medication list or bottles of medication to aftercare appointments update medication list when change of medication encourage adherence with medication as prescribed - Physical Exam Results Vital Signs: Vital Signs Temperature 96.1 F L 09/01/18 09:28 Pulse Rate 75 09/01/18 09:28 Respiratory Rate 18 09/01/18 09:28 Blood Pressure 122/75 09/01/18 09:28 O2 Sat by Pulse Oximetry (%) Pertinent Admission Physical Exam Findings: alcohol withdrawal sx Laboratory Last Values WBC 7.6 K/mm3 (4.0-10.0) 08/30/18 08:00 Corrected WBC (auto) Cancelled 08/29/18 07:50 RBC 4.31 M/mm3 (4.00-5.60) 08/30/18 08:00 Hgb 14.1 GM/dL (11.7-16.9) 08/30/18 08:00 Hct 41.2 % (35.4-49) 08/30/18 08:00 MCV 95.5 fl (80-96) 08/30/18 08:00 MCH 32.7 pg (25.7-33.7) 08/30/18 08:00 MCHC 34.2 g/dl (32.0-35.9) 08/30/18 08:00 RDW 15.1 % (11.9-15.9) 08/30/18 08:00 Plt Count 133 K/MM3 (134-434) L 08/30/18 08:00 MPV 9.0 fl (7.5-11.1) 08/30/18 08:00 Manual Slide Review Cancelled 08/29/18 07:50 Platelet Comment Cancelled 08/29/18 07:50 Sodium 142 mmol/L (136-145) 08/29/18 07:50 Potassium 4.0 mmol/L (3.5-5.1) 08/29/18 07:50 Chloride 110 mmol/L (98-107) H 08/29/18 07:50 Carbon Dioxide 22 mmol/L (21-32) 08/29/18 07:50 Anion Gap 11 MMOL/L (8-16) 08/29/18 07:50 BUN 20 mg/dL (7-18) H 08/30/18 08:00 Creatinine 1.4 mg/dL (0.55-1.3) H 08/29/18 07:50 Creat Clearance w eGFR 49.14 (>60) 08/29/18 07:50 Random Glucose 93 mg/dL (74-106) 08/29/18 07:50 Calcium 8.3 mg/dL (8.5-10.1) L 08/29/18 07:50 Total Bilirubin 0.7 mg/dL (0.2-1) 08/29/18 07:50 AST 28 U/L (15-37) 08/29/18 07:50 ALT 29 U/L (13-61) 08/29/18 07:50 Alkaline Phosphatase 145 U/L (45-117) H 08/29/18 07:50 Total Protein 6.9 g/dl (6.4-8.2) 08/29/18 07:50 Albumin 3.4 g/dl (3.4-5.0) 08/29/18 07:50 Urine Color Yellow 08/29/18 14:11 Urine Appearance Clear 08/29/18 14:11 Urine pH 6.0 (5.0-8.0) 08/29/18 14:11 Ur Specific [place] 1.024 (1.010-1.035) 08/29/18 14:11 Urine Protein Negative (NEGATIVE) 08/29/18 14:11 Urine Glucose (UA) Negative (NEGATIVE) 08/29/18 14:11 Urine Ketones Negative (NEGATIVE) 08/29/18 14:11 Urine Blood Negative (NEGATIVE) 08/29/18 14:11 Urine Nitrite Negative (NEGATIVE) 08/29/18 14:11 Urine Bilirubin Negative (<2.0 mg/dL) 08/29/18 14:11 Urine Urobilinogen 4.0 e.u/dl mg/dL (0.2-1.0) 08/29/18 14:11 Ur Leukocyte Esterase Negative (NEGATIVE) 08/29/18 14:11 RPR Titer Nonreactive (NONREACTIVE) 08/29/18 07:50 lab noted - Treatment Hospital Course: Detox Protocol Followed, Detoxed Safely, Responded well, Discharged Condition Good, Rehab Referral Accepted Patient has Accepted a Rehab Referral to: [facility] - Medication Discharge Medications: Ambulatory Orders Loperamide HCl [Imodium -] 4 mg PO Q6H PRN 01/02/16 Ranitidine [Zantac -] 150 mg PO BID #60 tablet 04/15/16 Allopurinol [Zyloprim -] 100 mg PO HS 30 Days tab MDD 1 03/16/17 Amlodipine Besylate [Norvasc -] 5 mg PO HS 30 Days tab MDD 1 03/16/17 Dutasteride [Avodart] 0.5 mg PO HS 30 Days cap MDD 1 03/16/17 Enalapril Maleate [Vasotec -] 10 mg PO HS 30 Days tab MDD 1 03/16/17 Latanoprost 0.005% Eye Drops [Xalatan 0.005% Eye Drops -] 1 drop OU HS 30 Days drop MDD 1 03/16/17 Tamsulosin HCl [Flomax -] 0.4 mg PO HS 30 Days cap MDD 1 03/16/17 - Diagnosis (1) Alcohol dependence with uncomplicated withdrawal Status: Acute (2) Gout Status: Chronic Qualifiers: Gout site: multiple sites Gout etiology: other secondary cause Chronicity : chronic Presence of tophus: with tophus Qualified Code(s): M1A.49X1 - Other secondary chronic gout, multiple sites, with tophus (tophi) (3) HTN (hypertension) Status: Chronic Qualifiers: Hypertension type: essential hypertension Qualified Code(s): I10 - Essential (primary) hypertension (4) Drug-induced mood disorder Status: Suspected - AMA Did Patient Leave Against Medical Advice: No
== END 2018-09-01 10:53 | disposition home or self-care (01) | DRG 897 ==
LOC: YASAS 15:16 → Y3N 17:26
PROVIDERS: ADMIT Surgery; ATTEND Surgery
PROC: HZ2ZZZZ Detoxification Services for Substance Abuse Treatment (ICD-10-PCS; principal; 2018-08-28)
DX: F10.230 Alcohol dependence with withdrawal, uncomplicated (principal); F14.20 Cocaine dependence, uncomplicated; F12.20 Cannabis dependence, uncomplicated; F19.24 Other psychoactive substance dependence with psychoactive substance-induced mood disorder; I10 Essential (primary) hypertension; M1A.49X1 Other secondary chronic gout, multiple sites, with tophus (tophi); N40.0 Benign prostatic hyperplasia without lower urinary tract symptoms; G47.00 Insomnia, unspecified; H40.9 Unspecified glaucoma; Z87.891 Personal history of nicotine dependence; Z96.653 Presence of artificial knee joint, bilateral; Z59.0 Homelessness
CPT/HCPCS: 36415; 80053; 81003; 84520; 85027; 86593

== ENCOUNTER 2019-01-18 08:14 | Inpatient (IN) | payer OTHER ==
[2019-01-18 12:37] VITALS: BMI 25.8
--- NOTE | 2019-01-18 12:42 | HP ---
CIWA Score Nausea/Vomitin-Mild Nausea/No Vomiting Muscle Tremors: 3 Anxiety: 2 Agitation: 1-Slight > Activity Paroxysmal Sweats: 1-Minimal Palms Moist Orientation: 0-Oriented Tacttile Disturbances: 0-None Auditory Disturbances: 0-None Visual Disturbances: 0-None Headache: 4-Moderately Severe CIWA-Ar Total Score: 12 - Admission Criteria OASAS Guidelines: Admission for Medically Managed Detox: Requires at least one of the followin. CIWA greater than 12 2. Seizures within the past 24 hours 3. Delirium tremens within the past 24 hours 4. Hallucinations within the past 24 hours 5. Acute intervention needed for co occurring medical disorder 6. Acute intervention needed for co occurring psychiatric disorder 7. Severe withdrawal that cannot be handled at a lower level of care (continued vomiting, continued diarrhea, abnormal vital signs) requiring intravenous medication and/or fluids 8. Admission ROS [facility] Chief Complaint: seeking help for alcohol and cocaine use Allergies/Adverse Reactions: Allergies Allergy/AdvReac Type Severity Reaction Status Date / Time orange Allergy Verified 08/28/18 16:43 strawberry [[place]] Allergy Verified 08/28/18 16:43 carrot Allergy Uncoded 08/28/18 16:43 History of Present Illness: 79 y/o/m here seeking help for alcohol and cocaine use. He states for the last week he has been drinking more than is typical for him due to personal issues he is having. He has been using 2/3rds of a quart of liquor and 3 [employer] teas daily for the last week. He starts drinking in the morning with his breakfast and then drinks on and off for the rest of the day. He has been using $1000-$500 of cocaine every week. He states he uses cocaine 3 times a week and he uses it by smoking. He has been using cocaine and alcohol since the 70s without any extended periods of sobriety. He smokes 4 cigarettes everyday. He denies any history of seizures. 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 PMHx of arthritis, gout, glaucoma, HTN, BPH, and CHF. SHx of bilateral TKA. - Ebola screening Have you traveled outside of the country in the last 21 days: No (N) Have you had contact with anyone from an Ebola affected area: No Do you have a fever: No - Review of Systems Constitutional: Fever, Loss of Appetite EENT: reports: Nose Congestion Respiratory: reports: Cough, Shortness of Breath Cardiac: reports: No Symptoms Reported. denies: Chest Pain GI: reports: Constipated. denies: Diarrhea, Nausea, Vomiting : reports: No Symptoms Reported Musculoskeletal: reports: Back Pain, Joint Pain Integumentary: reports: No Symptoms Reported Neuro: reports: Headache Endocrine: reports: Excessive Sweating Psychiatric: reports: Anxious, Depressed Other Systems: Reviewed and Negative Patient History - Patient Medical History Hx Anemia: No Hx Asthma: No Hx Chronic Obstructive Pulmonary Disease (COPD): No Hx Cancer: No Hx Cardiac Disorders: No Hx Congestive Heart Failure: Yes (no meds ) Hx Hypertension: Yes (no meds currently) Hx Hypercholesterolemia: No Hx Pacemaker: No HX Cerebrovascular Accident: No Hx Seizures: No Hx Dementia: No Hx Diabetes: No Hx Gastrointestinal Disorders: Yes (GERD) Hx Liver Disease: No Hx Genitourinary Disorders: Yes (BPH) Hx Sexually Transmitted Disorders: No Hx Renal Disease (ESRD): No Hx Thyroid Disease: No Hx Human Immunodeficiency Virus (HIV): No (last negative in 2018) Hx Hepatitis C: No Hx Depression: Yes (no meds ) Hx Suicide Attempt: No Hx Bipolar Disorder: No Hx Schizophrenia: No Other Medical History: Glaucoma. no suicidal or homicidal ideations - Patient Surgical History Past Surgical History: Yes Hx Neurologic Surgery: No Hx Cataract Extraction: No Hx Cardiac Surgery: No Hx Lung Surgery: No Hx Breast Surgery: No Hx Breast Biopsy: No Hx Abdominal Surgery: No Hx Appendectomy: Yes (1967) Hx Cholecystectomy: No Hx Genitourinary Surgery: No Hx Section: No Hx Orthopedic Surgery: Yes (total knee replacement 2014 & 2015) Anesthesia Reaction: No - PPD History Previous Implant?: Yes Documented Results: Positive w/o proof PPD to be Administered?: No - Smoking Cessation Smoking history: Current every day smoker Have you smoked in the past 12 months: Yes Aproximately how many cigarettes per day: 4 Hx Chewing Tobacco Use: No Initiated information on smoking cessation: Yes 'Breaking Loose' booklet given: 01/18/19 - Substance & Tx. History Hx Alcohol Use: Yes Hx Substance Use: Yes Substance Use Type: Alcohol, Cocaine - Substances abused Alcohol Substance route: Oral Frequency: Daily Amount used: one quart Age of first use: 13 Date of last use: 01/17/19 Crack Substance route: Smoking Frequency: 3-6 times per week Amount used: $1000-$500 per week Age of first use: 39 Date of last use: 01/18/19 Family Disease History - Family Disease History Family Disease History: Heart Disease: Father, Mother (HTN), Brother (HTN) Admission Physical Exam [facility] - Vital Signs Vital Signs: Vital Signs - 24 hr 01/18/19 12:35 Temperature 97.3 F L Pulse Rate 67 Respiratory 18 Rate Blood Pressure 129/83 - Physical General Appearance: Yes: Disheveled HEENTM: Yes: EOMI, Normocephalic, Other (glaucoma noted bilaterally. poor oral dentition) Respiratory: Yes: Lungs Clear, Normal Breath Sounds, No Accessory Muscle Use Neck: Yes: Supple Cardiology: Yes: Regular Rate, Systolic Murmur Abdominal: Yes: Normal Bowel Sounds, Soft, Tenderness (mild TTP over the RUQ) Musculoskeletal: Yes: Other (patient walks hunched over due to back pain) Extremities: Yes: Normal Capillary Refill, Tremors (bilaterally) Neurological: Yes: crayon painter II-XII NML intact, Alert, Motor Strength 5/5 Integumentary: Yes: Dry - Diagnostic (1) Alcohol use disorder Current Visit: Yes Status: Acute (2) Cocaine use disorder Current Visit: Yes Status: Acute (3) Glaucoma of both eyes Current Visit: No Status: Chronic Qualifiers: Glaucoma type: unspecified Qualified Code(s): H40.9 - Unspecified glaucoma (4) Gout Current Visit: No Status: Chronic Qualifiers: Gout site: multiple sites Gout etiology: other secondary cause Chronicity : chronic Presence of tophus: with tophus Qualified Code(s): M1A.49X1 - Other secondary chronic gout, multiple sites, with tophus (tophi) (5) HTN (hypertension) Current Visit: No Status: Chronic Qualifiers: Hypertension type: essential hypertension Qualified Code(s): I10 - Essential (primary) hypertension Cleared for Admission [facility] - Detox or Rehab [facility] Level of Care: Medically Managed Detox Regimen/Protocol: [id number] Urine Drug Screen - Test Device Lot number: [id number] Expiration date: 09/08/20 - Control Is test valid?: Yes - Results Drug screen NEGATIVE: No Urine drug screen results: BAUDILIO-Cocaine Inpatient Rehab Admission - Rehab Decision to Admit Inpatient rehab admission?: No
[2019-01-18] MEDS ORDERED: ACETAMINOPHEN 325 MG TABLET (FP) PO PRN ×2 (13:35)
[2019-01-18] MEDS ORDERED: NICOTINE POLACRILEX 2 MG GUM BUC PRN (13:35)
[2019-01-18] MEDS ORDERED: MAGNESIUM CITRATE 300 ML BOTTLE PO PRN (13:35)
[2019-01-18] MEDS ORDERED: LOPERAMIDE HCL 2 MG CAPSULE PO PRN (13:37)
--- NOTE | 2019-01-18 13:53 | PN ---
[facility] Progress Note Note: this 79 years old male with alcohol and cocaine dependence,seeking help detox, withdrawal symptom, history of hypertension,bilateral knee replacement history of gout, i personally present,review,history and examnination of this patient by Dr Ronit Bailey, discussed medical management and treatment,I agreed and concurred that this patient need inpatient detox,medical management librium regimen
[2019-01-18] MEDS: RANITIDINE HCL 150 MG TABLET (FP) PO SCH ×2 (15:33→22:23)
[2019-01-18] MEDS: chlordiazePOXIDE HCL 10 MG CAPSULE PO PRN (16:32)
[2019-01-18 17:22] LABS: HEMATOCRIT 46.2 % (35.4-49); HEMOGLOBIN 15.1 GM/dL (11.7-16.9); MCH 31.4 pg (25.7-33.7); MCHC 32.7 g/dl (32.0-35.9); MEAN PLT VOLUME 9.1 fl (7.5-11.1); PLATELET COUNT 162 K/MM3 (134-434); RBC 4.81 M/mm3 (4.00-5.60); RDW 15.5 % (11.9-15.9); WHITE BLOOD COUNT 12.8 K/mm3 (4.0-10.0)
[2019-01-18 17:34] LABS: ALBUMIN 3.9 g/dl (3.4-5.0); BLOOD UREA NITROGEN 20.4 mg/dL (7-18); CALCIUM 9.1 mg/dL (8.5-10.1); CREATININE 1.2 mg/dL (0.55-1.3); POTASSIUM 3.8 mmol/L (3.5-5.1); TOT PROT 7.8 g/dl (6.4-8.2)
[2019-01-18] MEDS: chlordiazePOXIDE HCL 25 MG CAPSULE PO SCH (22:23)
[2019-01-18] MEDS: THIAMINE HCL 100 MG TABLET (FP) PO SCH (22:23)
[2019-01-18] MEDS: LATANOPROST 0.005% OPHTH SOLN 2.5ML BOTTLE OU SCH (22:23)
[2019-01-18] MEDS: TAMSULOSIN HCL 0.4 MG CAP PO SCH (22:23)
[2019-01-18] MEDS: amLODIPine BESYLATE 5 MG TABLET (FP) PO SCH (22:23)
[2019-01-18] MEDS: DUTASTERIDE 0.5 MG CAP (FP) PO SCH (23:05)
[2019-01-18] MEDS: ALLOPURINOL 100 MG TABLET (FP) PO SCH (23:06)
[2019-01-18] MEDS: ENALAPRIL MALEATE 10 MG TABLET (FP) PO SCH (23:18)
[2019-01-19] MEDS: chlordiazePOXIDE HCL 25 MG CAPSULE PO SCH ×3 (06:35→22:23)
--- NOTE | 2019-01-19 10:09 | PN ---
S CIWA - CIWA Score Nausea/Vomitin Muscle Tremors: 2 Anxiety: 2 Agitation: 2 Paroxysmal Sweats: 1-Minimal Palms Moist Orientation: 0-Oriented Tacttile Disturbances: 1-Very Mild Itch/Numbness Auditory Disturbances: 1-Very Mild Visual Disturbances: 0-None Headache: 1-Very Mild CIWA-Ar Total Score: 12 B[facility] Progress Note (SOAP) Subjective: alert,irritable,anxious,interrupted sleep,tremor Objective: 01/19/19 10:05 Vital Signs Temperature 97.7 F 01/19/19 09:29 Pulse Rate 72 01/19/19 09:29 Respiratory Rate 18 01/19/19 09:29 Blood Pressure 110/75 01/19/19 09:29 O2 Sat by Pulse Oximetry (%) 01/19/19 10:05 Laboratory Last Values WBC 12.8 K/mm3 (4.0-10.0) H 01/18/19 13:55 RBC 4.81 M/mm3 (4.00-5.60) 01/18/19 13:55 Hgb 15.1 GM/dL (11.7-16.9) 01/18/19 13:55 Hct 46.2 % (35.4-49) 01/18/19 13:55 MCV 96.0 fl (80-96) 01/18/19 13:55 MCH 31.4 pg (25.7-33.7) 01/18/19 13:55 MCHC 32.7 g/dl (32.0-35.9) 01/18/19 13:55 RDW 15.5 % (11.9-15.9) 01/18/19 13:55 Plt Count 162 K/MM3 (134-434) D 01/18/19 13:55 MPV 9.1 fl (7.5-11.1) 01/18/19 13:55 Sodium 145 mmol/L (136-145) 01/18/19 13:55 Potassium 3.8 mmol/L (3.5-5.1) 01/18/19 13:55 Chloride 112 mmol/L (98-107) H 01/18/19 13:55 Carbon Dioxide 26 mmol/L (21-32) 01/18/19 13:55 Anion Gap 7 MMOL/L (8-16) L 01/18/19 13:55 BUN 20.4 mg/dL (7-18) H 01/18/19 13:55 Creatinine 1.2 mg/dL (0.55-1.3) 01/18/19 13:55 Est GFR (CKD-EPI)AfAm 66.73 01/18/19 13:55 Est GFR (CKD-EPI)NonAf 57.57 01/18/19 13:55 Random Glucose 90 mg/dL (74-106) 01/18/19 13:55 Calcium 9.1 mg/dL (8.5-10.1) 01/18/19 13:55 Total Bilirubin 1.0 mg/dL (0.2-1) 01/18/19 13:55 AST 23 U/L (15-37) 01/18/19 13:55 ALT 29 U/L (13-61) 01/18/19 13:55 Alkaline Phosphatase 112 U/L (45-117) 01/18/19 13:55 Total Protein 7.8 g/dl (6.4-8.2) 01/18/19 13:55 Albumin 3.9 g/dl (3.4-5.0) 01/18/19 13:55 01/19/19 10:07 rpr,hiv test pending Assessment: 01/19/19 10:07 withdrawal symptom Plan: continue detox,librium regimen,wbc 12.800,bun 24,possible due to dehydration, encourage oral fluid,repeat cbc,bmp in am
[2019-01-19] MEDS: RANITIDINE HCL 150 MG TABLET (FP) PO SCH ×2 (10:19→22:23)
[2019-01-19] MEDS: PRENATAL VITAMINS W/ FOLIC ACID TABLET (FP) PO SCH (10:19)
[2019-01-19] MEDS: chlordiazePOXIDE HCL 10 MG CAPSULE PO PRN (17:52)
[2019-01-19] MEDS: METHOCARBAMOL 500 MG TABLET PO PRN (17:53)
[2019-01-19] MEDS: amLODIPine BESYLATE 5 MG TABLET (FP) PO SCH (22:23)
[2019-01-19] MEDS: THIAMINE HCL 100 MG TABLET (FP) PO SCH (22:23)
[2019-01-19] MEDS: TAMSULOSIN HCL 0.4 MG CAP PO SCH (22:23)
[2019-01-19] MEDS: DUTASTERIDE 0.5 MG CAP (FP) PO SCH (22:26)
[2019-01-19] MEDS: HYDROCORTISONE 0.5% TOPICAL CREAM 30 GM TUBE TP SCH (22:30)
[2019-01-19] MEDS: LATANOPROST 0.005% OPHTH SOLN 2.5ML BOTTLE OU SCH (22:31)
[2019-01-19] MEDS: ENALAPRIL MALEATE 10 MG TABLET (FP) PO SCH (23:18)
[2019-01-19] MEDS: ALLOPURINOL 100 MG TABLET (FP) PO SCH (23:18)
[2019-01-20] MEDS: chlordiazePOXIDE 5 MG CAPSULE PO SCH ×2 (07:12→13:19)
[2019-01-20] MEDS: IBUPROFEN 400 MG TABLET (FP) PO PRN (07:34)
[2019-01-20] MEDS: chlordiazePOXIDE HCL 10 MG CAPSULE PO PRN ×2 (07:34→10:09)
[2019-01-20] MEDS: RANITIDINE HCL 150 MG TABLET (FP) PO SCH ×2 (10:06→22:20)
[2019-01-20] MEDS: PRENATAL VITAMINS W/ FOLIC ACID TABLET (FP) PO SCH (10:06)
[2019-01-20] MEDS: HYDROCORTISONE 0.5% TOPICAL CREAM 30 GM TUBE TP SCH ×2 (10:07→22:21)
[2019-01-20] MEDS: hydrOXYzine HCL 25 MG TABLET (FP) PO PRN (10:08)
--- NOTE | 2019-01-20 10:10 | PN ---
S CIWA - CIWA Score Nausea/Vomitin-Mild Nausea/No Vomiting Muscle Tremors: 2 Anxiety: 3 Agitation: 3 Paroxysmal Sweats: No Perspiration Orientation: 0-Oriented Tacttile Disturbances: 1-Very Mild Itch/Numbness Auditory Disturbances: 1-Very Mild Visual Disturbances: 0-None Headache: 1-Very Mild CIWA-Ar Total Score: 12 BHS Progress Note (SOAP) Subjective: alert,irritable,anxious,interrupted sleep,pain in the body Objective: 01/20/19 10:09 Vital Signs Temperature 97.5 F L 01/20/19 09:33 Pulse Rate 71 01/20/19 09:33 Respiratory Rate 18 01/20/19 09:33 Blood Pressure 138/85 01/20/19 09:33 O2 Sat by Pulse Oximetry (%) 01/20/19 10:09 peat cbc,bmp pending Assessment: 01/20/19 10:09 withdrawal symptom Plan: continue detox librium regimen,encourage oral fluid,repeat cbc,bmp pending
[2019-01-20] MEDS: METHOCARBAMOL 500 MG TABLET PO PRN (10:11)
[2019-01-20 10:27] LABS: BLOOD UREA NITROGEN 18.3 mg/dL (7-18); CALCIUM 8.9 mg/dL (8.5-10.1); CREATININE 1.2 mg/dL (0.55-1.3); POTASSIUM 4.1 mmol/L (3.5-5.1)
[2019-01-20 10:34] LABS: HEMOGLOBIN 15.3 GM/dL (11.7-16.9)
[2019-01-20] MEDS: MENTHOL/PHENOL 1 EACH UD MM PRN (10:57)
[2019-01-20 10:58] LABS: MCH 32.4 pg (25.7-33.7); MCHC 34.1 g/dl (32.0-35.9); MEAN CELL VOLUME 95.2 fl (80-96); MEAN PLT VOLUME 8.8 fl (7.5-11.1); PLATELET COUNT 165 K/MM3 (134-434); RBC 4.72 M/mm3 (4.00-5.60); RDW 15.3 % (11.9-15.9); WHITE BLOOD COUNT 8.2 K/mm3 (4.0-10.0)
--- NOTE | 2019-01-20 18:57 | PN ---
S Progress Note (SOAP) Subjective: Patient is upset. States the staff took his lunch while he was asleep because they are "bitches". Admits the problem w/ lunch was the first incident. States received dinner. Objective: Alert and oriented. Lungs CTA. O2 sat 96% Vital Signs 01/20/19 01/20/19 01/21/19 17:18 21:12 00:36 Temperature 97.5 F L 97.2 F L Pulse Rate 72 72 Respiratory 16 18 18 Rate Blood Pressure 119/75 138/83 Laboratory Last Values WBC 8.2 K/mm3 (4.0-10.0) 01/20/19 07:00 RBC 4.72 M/mm3 (4.00-5.60) 01/20/19 07:00 Hgb 15.3 GM/dL (11.7-16.9) 01/20/19 07:00 Hct 45.0 % (35.4-49) 01/20/19 07:00 MCV 95.2 fl (80-96) 01/20/19 07:00 MCH 32.4 pg (25.7-33.7) 01/20/19 07:00 MCHC 34.1 g/dl (32.0-35.9) 01/20/19 07:00 RDW 15.3 % (11.9-15.9) 01/20/19 07:00 Plt Count 165 K/MM3 (134-434) 01/20/19 07:00 MPV 8.8 fl (7.5-11.1) 01/20/19 07:00 Sodium 143 mmol/L (136-145) 01/20/19 07:00 Potassium 4.1 mmol/L (3.5-5.1) 01/20/19 07:00 Chloride 111 mmol/L (98-107) H 01/20/19 07:00 Carbon Dioxide 27 mmol/L (21-32) 01/20/19 07:00 Anion Gap 5 MMOL/L (8-16) L 01/20/19 07:00 BUN 18.3 mg/dL (7-18) H 01/20/19 07:00 Creatinine 1.2 mg/dL (0.55-1.3) 01/20/19 07:00 Est GFR (CKD-EPI)AfAm 66.73 01/20/19 07:00 Est GFR (CKD-EPI)NonAf 57.57 01/20/19 07:00 Random Glucose 82 mg/dL (74-106) 01/20/19 07:00 Calcium 8.9 mg/dL (8.5-10.1) 01/20/19 07:00 Total Bilirubin 1.0 mg/dL (0.2-1) 01/18/19 13:55 AST 23 U/L (15-37) 01/18/19 13:55 ALT 29 U/L (13-61) 01/18/19 13:55 Alkaline Phosphatase 112 U/L (45-117) 01/18/19 13:55 Total Protein 7.8 g/dl (6.4-8.2) 01/18/19 13:55 Albumin 3.9 g/dl (3.4-5.0) 01/18/19 13:55 RPR Titer Nonreactive (NONREACTIVE) 01/18/19 13:55 HIV 1&2 Antibody Screen Negative 01/18/19 14:15 HIV P24 Antigen Negative 01/18/19 14:15 Labs reviewed. 01/21/19 01:16 Assessment: Alcohol withdrawal. Plan: Decrease librium.
[2019-01-20] MEDS ORDERED: chlordiazePOXIDE 5 MG CAPSULE PO SCH (19:28)
[2019-01-20] MEDS: ALLOPURINOL 100 MG TABLET (FP) PO SCH (22:20)
[2019-01-20] MEDS: amLODIPine BESYLATE 5 MG TABLET (FP) PO SCH (22:20)
[2019-01-20] MEDS: ENALAPRIL MALEATE 10 MG TABLET (FP) PO SCH (22:20)
[2019-01-20] MEDS: TAMSULOSIN HCL 0.4 MG CAP PO SCH (22:20)
[2019-01-20] MEDS: THIAMINE HCL 100 MG TABLET (FP) PO SCH (22:20)
[2019-01-20] MEDS: DUTASTERIDE 0.5 MG CAP (FP) PO SCH (22:24)
[2019-01-20] MEDS: LATANOPROST 0.005% OPHTH SOLN 2.5ML BOTTLE OU SCH (22:24)
[2019-01-21] MEDS ORDERED: chlordiazePOXIDE HCL 10 MG CAPSULE PO SCH ×2 (05:00)
[2019-01-21] MEDS: chlordiazePOXIDE 5 MG CAPSULE PO SCH ×2 (05:50→13:04)
[2019-01-21] MEDS: IBUPROFEN 400 MG TABLET (FP) PO PRN ×2 (06:02→17:09)
--- NOTE | 2019-01-21 09:53 | PN ---
S CIWA - CIWA Score Nausea/Vomitin-No Nausea/No Vomiting Muscle Tremors: 2 Anxiety: 3 Agitation: 2 Paroxysmal Sweats: 3 Orientation: 0-Oriented Tacttile Disturbances: 0-None Auditory Disturbances: 0-None Visual Disturbances: 0-None Headache: 2-Mild CIWA-Ar Total Score: 12 S Progress Note (SOAP) Subjective: c/o sweats, anxiety, headache, and shake. Objective: 01/21/19 09:53 Vital Signs 01/21/19 01/21/19 01/21/19 03:30 06:00 09:11 Temperature 97.3 F L 98.2 F Pulse Rate 73 77 Respiratory 18 18 18 Rate Blood Pressure 126/68 148/84 Lab Results WBC 8.2 K/mm3 (4.0-10.0) 01/20/19 07:00 RBC 4.72 M/mm3 (4.00-5.60) 01/20/19 07:00 Hgb 15.3 GM/dL (11.7-16.9) 01/20/19 07:00 Hct 45.0 % (35.4-49) 01/20/19 07:00 MCV 95.2 fl (80-96) 01/20/19 07:00 MCHC 34.1 g/dl (32.0-35.9) 01/20/19 07:00 RDW 15.3 % (11.9-15.9) 01/20/19 07:00 Plt Count 165 K/MM3 (134-434) 01/20/19 07:00 Sodium 143 mmol/L (136-145) 01/20/19 07:00 Potassium 4.1 mmol/L (3.5-5.1) 01/20/19 07:00 Chloride 111 mmol/L (98-107) H 01/20/19 07:00 Carbon Dioxide 27 mmol/L (21-32) 01/20/19 07:00 Anion Gap 5 MMOL/L (8-16) L 01/20/19 07:00 BUN 18.3 mg/dL (7-18) H 01/20/19 07:00 Creatinine 1.2 mg/dL (0.55-1.3) 01/20/19 07:00 Random Glucose 82 mg/dL (74-106) 01/20/19 07:00 Calcium 8.9 mg/dL (8.5-10.1) 01/20/19 07:00 Labs noted. Assessment: 01/21/19 09:53 AOX3, in no acute respiratory distress. Full ROM, ambulating in the unit. withdrawal symptoms. Plan: continue detox.
[2019-01-21] MEDS: HYDROCORTISONE 0.5% TOPICAL CREAM 30 GM TUBE TP SCH ×2 (10:23→22:51)
[2019-01-21] MEDS: RANITIDINE HCL 150 MG TABLET (FP) PO SCH ×2 (10:24→22:50)
[2019-01-21] MEDS: PRENATAL VITAMINS W/ FOLIC ACID TABLET (FP) PO SCH (10:24)
[2019-01-21] MEDS: MENTHOL/PHENOL 1 EACH UD MM PRN (10:25)
[2019-01-21] MEDS: hydrOXYzine HCL 25 MG TABLET (FP) PO PRN ×2 (16:53→22:50)
[2019-01-21] MEDS: TAMSULOSIN HCL 0.4 MG CAP PO SCH (22:51)
[2019-01-21] MEDS: ALLOPURINOL 100 MG TABLET (FP) PO SCH (22:51)
[2019-01-21] MEDS: DUTASTERIDE 0.5 MG CAP (FP) PO SCH (22:51)
[2019-01-21] MEDS: THIAMINE HCL 100 MG TABLET (FP) PO SCH (22:51)
[2019-01-21] MEDS: amLODIPine BESYLATE 5 MG TABLET (FP) PO SCH (22:51)
[2019-01-21] MEDS: METHOCARBAMOL 500 MG TABLET PO PRN (22:52)
[2019-01-21] MEDS: LATANOPROST 0.005% OPHTH SOLN 2.5ML BOTTLE OU SCH (23:00)
[2019-01-21] MEDS: ENALAPRIL MALEATE 10 MG TABLET (FP) PO SCH (23:00)
[2019-01-22] MEDS ORDERED: chlordiazePOXIDE HCL 10 MG CAPSULE PO ONE (05:00)
[2019-01-22] MEDS: PRENATAL VITAMINS W/ FOLIC ACID TABLET (FP) PO SCH (10:34)
[2019-01-22] MEDS: RANITIDINE HCL 150 MG TABLET (FP) PO SCH ×2 (10:34→22:49)
[2019-01-22] MEDS: HYDROCORTISONE 0.5% TOPICAL CREAM 30 GM TUBE TP SCH ×2 (10:35→23:31)
--- NOTE | 2019-01-22 11:32 | DS ---
[facility] Detox Discharge Summary Admission Date: 01/18/19 Discharge Date: 01/22/19 - History Present History: Alcohol Dependence, Cocaine Dependence Additional Comments: Patient completed detox successfully and is scheduled for discharge today. As per patient, he is going to [facility] today. Patient is stable and without any complaints. Pertinent Past History: HTN CHF GERD BPH Glaucoma PPD Positive history Nicotine dependence Alcohol dependence Cocaine dependence - Physical Exam Results Vital Signs: Vital Signs Temperature 97.0 F L 01/22/19 10:06 Pulse Rate 73 01/22/19 10:06 Respiratory Rate 18 01/22/19 10:06 Blood Pressure 140/90 01/22/19 10:06 O2 Sat by Pulse Oximetry (%) Pertinent Admission Physical Exam Findings: Withdrawal symptoms Admission labs reviewed from 01/20/19; bun 18.3: azotemia (most likely from dehydration), encouraged PO water intake - Treatment Hospital Course: Detox Protocol Followed, Detoxed Safely, Responded well, Discharged Condition Good, Rehab Referral Accepted - Medication Discharge Medications: Ambulatory Orders Loperamide HCl [Imodium -] 4 mg PO Q6H PRN 01/02/16 Ranitidine [Zantac -] 150 mg PO BID #60 tablet 04/15/16 Allopurinol [Zyloprim -] 100 mg PO HS 30 Days tab MDD 1 03/16/17 Amlodipine Besylate [Norvasc -] 5 mg PO HS 30 Days tab MDD 1 03/16/17 Dutasteride [Avodart] 0.5 mg PO HS 30 Days cap MDD 1 03/16/17 Enalapril Maleate [Vasotec -] 10 mg PO HS 30 Days tab MDD 1 03/16/17 Latanoprost 0.005% Eye Drops [Xalatan 0.005% Eye Drops -] 1 drop OU HS 30 Days drop MDD 1 03/16/17 Tamsulosin HCl [Flomax -] 0.4 mg PO HS 30 Days cap MDD 1 03/16/17 - Diagnosis (1) CHF (congestive heart failure) Current Visit: Yes Status: Chronic (2) GERD (gastroesophageal reflux disease) Current Visit: Yes Status: Chronic (3) BPH (benign prostatic hyperplasia) Current Visit: Yes Status: Chronic (4) History of positive PPD Current Visit: Yes Status: Chronic (5) Nicotine dependence Current Visit: Yes Status: Chronic (6) Alcohol dependence with uncomplicated withdrawal Current Visit: Yes Status: Acute (7) Cocaine dependence, uncomplicated Current Visit: Yes Status: Chronic (8) Glaucoma Current Visit: Yes Status: Chronic Qualifiers: Glaucoma type: open-angle Laterality: bilateral (9) HTN (hypertension) Current Visit: Yes Status: Chronic Qualifiers: Hypertension type: essential hypertension Qualified Code(s): I10 - Essential (primary) hypertension (10) Azotemia Current Visit: Yes Status: Acute - AMA Did Patient Leave Against Medical Advice: No (Await rehab admission)
[2019-01-22] MEDS: IBUPROFEN 400 MG TABLET (FP) PO PRN (14:26)
[2019-01-22] MEDS: ENALAPRIL MALEATE 10 MG TABLET (FP) PO SCH (22:49)
[2019-01-22] MEDS: THIAMINE HCL 100 MG TABLET (FP) PO SCH (22:49)
[2019-01-22] MEDS: amLODIPine BESYLATE 5 MG TABLET (FP) PO SCH (22:49)
[2019-01-22] MEDS: hydrOXYzine HCL 25 MG TABLET (FP) PO PRN (22:50)
[2019-01-22] MEDS: ALLOPURINOL 100 MG TABLET (FP) PO SCH (22:50)
[2019-01-22] MEDS: METHOCARBAMOL 500 MG TABLET PO PRN (22:50)
[2019-01-22] MEDS: DUTASTERIDE 0.5 MG CAP (FP) PO SCH (23:31)
[2019-01-22] MEDS: TAMSULOSIN HCL 0.4 MG CAP PO SCH (23:31)
[2019-01-22] MEDS: LATANOPROST 0.005% OPHTH SOLN 2.5ML BOTTLE OU SCH (23:31)
[2019-01-23] MEDS: PRENATAL VITAMINS W/ FOLIC ACID TABLET (FP) PO SCH (10:09)
[2019-01-23] MEDS: HYDROCORTISONE 0.5% TOPICAL CREAM 30 GM TUBE TP SCH ×2 (10:09→21:42)
[2019-01-23] MEDS: RANITIDINE HCL 150 MG TABLET (FP) PO SCH ×2 (10:09→21:40)
[2019-01-23] MEDS: MENTHOL/PHENOL 1 EACH UD MM PRN (10:10)
[2019-01-23] MEDS: METHOCARBAMOL 500 MG TABLET PO PRN (10:14)
[2019-01-23] MEDS: IBUPROFEN 400 MG TABLET (FP) PO PRN (14:37)
--- NOTE | 2019-01-23 16:47 | PN ---
[facility] Progress Note Note: PLEASE DISREGARD PREVIOUS [facility] DETOX DISCHARGE SUMMARY FROM 01/22/2019. PATIENT SCHEDULED TO BE DISCHARGED ON 01/23/2019. Aniya GLOVER NP
--- NOTE | 2019-01-23 16:54 | DS ---
[facility] Detox Discharge Summary Admission Date: 01/18/19 Discharge Date: 01/23/19 - History Present History: Alcohol Dependence Additional Comments: PATIENT GOING TO [facility] ([place], [place]) FOR AFTERCARE. PATIENT WAS DISCHARGED FROM DETOX UNIT TO BE TAKEN OVER TO REHAB UNIT IN STABLE MEDICAL CONDITION. Pertinent Past History: Arthritis, Gout, HTN, Azotemia, CHF, BPH, CHF, Depression, G.E.R.D. - Physical Exam Results Vital Signs: Vital Signs Temperature 98.1 F 01/23/19 12:56 Pulse Rate 78 01/23/19 12:56 Respiratory Rate 18 01/23/19 12:56 Blood Pressure 143/85 01/23/19 12:56 O2 Sat by Pulse Oximetry (%) Pertinent Admission Physical Exam Findings: WITHDRAWAL SYMPTOMS. Laboratory Tests 01/18/19 01/18/19 01/18/19 13:55 13:55 13:55 WBC 12.8 H RBC 4.81 Hgb 15.1 Hct 46.2 MCV 96.0 MCH 31.4 MCHC 32.7 RDW 15.5 Plt Count 162 D MPV 9.1 Sodium 145 Potassium 3.8 Chloride 112 H Carbon Dioxide 26 Anion Gap 7 L BUN 20.4 H Creatinine 1.2 Est GFR (CKD-EPI)AfAm 66.73 Est GFR (CKD-EPI)NonAf 57.57 POC Glucometer Random Glucose 90 Calcium 9.1 Total Bilirubin 1.0 AST 23 ALT 29 Alkaline Phosphatase 112 Total Protein 7.8 Albumin 3.9 RPR Titer Nonreactive HIV 1&2 Antibody Screen HIV P24 Antigen 01/18/19 01/20/19 01/20/19 14:15 07:00 07:00 WBC 8.2 RBC 4.72 Hgb 15.3 Hct 45.0 MCV 95.2 MCH 32.4 MCHC 34.1 RDW 15.3 Plt Count 165 MPV 8.8 Sodium 143 Potassium 4.1 Chloride 111 H Carbon Dioxide 27 Anion Gap 5 L BUN 18.3 H Creatinine 1.2 Est GFR (CKD-EPI)AfAm 66.73 Est GFR (CKD-EPI)NonAf 57.57 POC Glucometer Random Glucose 82 Calcium 8.9 Total Bilirubin AST ALT Alkaline Phosphatase Total Protein Albumin RPR Titer HIV 1&2 Antibody Screen Negative HIV P24 Antigen Negative 01/23/19 11:27 WBC RBC Hgb Hct MCV MCH MCHC RDW Plt Count MPV Sodium Potassium Chloride Carbon Dioxide Anion Gap BUN Creatinine Est GFR (CKD-EPI)AfAm Est GFR (CKD-EPI)NonAf POC Glucometer 93 Random Glucose Calcium Total Bilirubin AST ALT Alkaline Phosphatase Total Protein Albumin RPR Titer HIV 1&2 Antibody Screen HIV P24 Antigen LABS NOTED. - Treatment Hospital Course: Detox Protocol Followed, Detoxed Safely, Responded well, Discharged Condition Good, Rehab Referral Accepted Patient has Accepted a Rehab Referral to: [facility] ([place], [place]). - Medication Discharge Medications: Ambulatory Orders Loperamide HCl [Imodium -] 4 mg PO Q6H PRN 01/02/16 Ranitidine [Zantac -] 150 mg PO BID #60 tablet 04/15/16 Allopurinol [Zyloprim -] 100 mg PO HS 30 Days tab MDD 1 03/16/17 Amlodipine Besylate [Norvasc -] 5 mg PO HS 30 Days tab MDD 1 03/16/17 Dutasteride [Avodart] 0.5 mg PO HS 30 Days cap MDD 1 03/16/17 Enalapril Maleate [Vasotec -] 10 mg PO HS 30 Days tab MDD 1 03/16/17 Latanoprost 0.005% Eye Drops [Xalatan 0.005% Eye Drops -] 1 drop OU HS 30 Days drop MDD 1 03/16/17 Tamsulosin HCl [Flomax -] 0.4 mg PO HS 30 Days cap MDD 1 03/16/17 - Diagnosis (1) Alcohol use disorder Current Visit: Yes Status: Acute (2) Azotemia Current Visit: Yes Status: Acute (3) Cocaine use disorder Current Visit: Yes Status: Acute (4) Glaucoma Current Visit: Yes Status: Chronic Qualifiers: Glaucoma type: open-angle Open angle glaucoma type: unspecified type Laterality: bilateral Glaucoma stage: stage unspecified Qualified Code(s): H40.10X0 - Unspecified open-angle glaucoma, stage unspecified (5) HTN (hypertension) Current Visit: Yes Status: Chronic Qualifiers: Hypertension type: essential hypertension Qualified Code(s): I10 - Essential (primary) hypertension (6) Gout Current Visit: Yes Status: Chronic Qualifiers: Gout site: multiple sites Gout etiology: other secondary cause Chronicity : chronic Presence of tophus: with tophus Qualified Code(s): M1A.49X1 - Other secondary chronic gout, multiple sites, with tophus (tophi) - AMA Did Patient Leave Against Medical Advice: No
--- NOTE | 2019-01-23 16:57 | HP ---
[facility] Assess/Revision - Admission History Admitted to Rehab from: [facility] Date of Admission to Rehab: 01/23/2019 - Vital signs Vital Signs: Vital Signs Period Temp Pulse Resp BP Sys/Goldman Pulse Ox Last 24 Hr 96.6 F-98.1 F 74-80 16-18 137-155/77-97 - Findings Detox History & Physical reviewed: Yes Concur with findings: Yes Comments/Additional Findings: PATIENT GOING ON TO [facility] ( [place], [place]) FOR AFTERCARE. PATIENT WAS DISCHARGED FROM DETOX UNIT TO BE TAKEN OVER TO REHAB UNIT IN STABLE MEDICAL CONDITION. Inpatient Rehab Admission - Rehab Decision to Admit Inpatient rehab admission?: Yes - Initial Determination Are CD services needed?: Yes Free of communicable disease: Yes Not in need of hospitalization: Yes - Rehab Admission Criteria Previous failed treatment: Yes Poor recovery environment: Yes Comorbidities: Yes Lacks judgement: No Patient is meeting Inpatient Rehab admission criteria:: Yes
[2019-01-23] MEDS: hydrOXYzine HCL 25 MG TABLET (FP) PO PRN (18:05)
[2019-01-23] MEDS: ALLOPURINOL 100 MG TABLET (FP) PO SCH (21:40)
[2019-01-23] MEDS: THIAMINE HCL 100 MG TABLET (FP) PO SCH (21:40)
[2019-01-23] MEDS: TAMSULOSIN HCL 0.4 MG CAP PO SCH (21:40)
[2019-01-23] MEDS: amLODIPine BESYLATE 5 MG TABLET (FP) PO SCH (21:40)
[2019-01-23] MEDS: ENALAPRIL MALEATE 10 MG TABLET (FP) PO SCH (21:43)
[2019-01-23] MEDS: LATANOPROST 0.005% OPHTH SOLN 2.5ML BOTTLE OU SCH (22:11)
[2019-01-23] MEDS: DUTASTERIDE 0.5 MG CAP (FP) PO SCH (22:12)
[2019-01-24] MEDS: PRENATAL VITAMINS W/ FOLIC ACID TABLET (FP) PO SCH (10:09)
[2019-01-24] MEDS: RANITIDINE HCL 150 MG TABLET (FP) PO SCH ×2 (10:09→21:47)
[2019-01-24] MEDS: HYDROCORTISONE 0.5% TOPICAL CREAM 30 GM TUBE TP SCH ×2 (10:10→21:48)
[2019-01-24] MEDS: MELATONIN 5 MG TABLETS PO PRN (21:47)
[2019-01-24] MEDS: ALLOPURINOL 100 MG TABLET (FP) PO SCH (21:47)
[2019-01-24] MEDS: amLODIPine BESYLATE 5 MG TABLET (FP) PO SCH (21:47)
[2019-01-24] MEDS: TAMSULOSIN HCL 0.4 MG CAP PO SCH (21:47)
[2019-01-24] MEDS: DUTASTERIDE 0.5 MG CAP (FP) PO SCH (21:47)
[2019-01-24] MEDS: ENALAPRIL MALEATE 10 MG TABLET (FP) PO SCH (21:47)
[2019-01-24] MEDS: THIAMINE HCL 100 MG TABLET (FP) PO SCH (21:49)
[2019-01-24] MEDS: LATANOPROST 0.005% OPHTH SOLN 2.5ML BOTTLE OU SCH (21:50)
[2019-01-25] MEDS: PRENATAL VITAMINS W/ FOLIC ACID TABLET (FP) PO SCH (10:11)
[2019-01-25] MEDS: RANITIDINE HCL 150 MG TABLET (FP) PO SCH ×2 (10:11→21:20)
[2019-01-25] MEDS: HYDROCORTISONE 0.5% TOPICAL CREAM 30 GM TUBE TP SCH ×2 (10:13→21:21)
--- NOTE | 2019-01-25 13:53 | PN ---
[facility] Progress Note Note: PATIENT REPORTS THAT HE FEELS TIERED AND "FOGGY." PATIENT PATIENT A & O X 3, OBSERVED AMBULATING ON UNIT UNASSISTED. IN NO ACUTE DISTRESS. BP ELEVATED, OTHER VS STABLE. PATIENT AFEBRILE. AMMONIA LEVEL ORDERED TO R/O HYPERAMMONEMIA. Aniya GLOVER NP.
[2019-01-25] MEDS: THIAMINE HCL 100 MG TABLET (FP) PO SCH (21:19)
[2019-01-25] MEDS: TAMSULOSIN HCL 0.4 MG CAP PO SCH (21:19)
[2019-01-25] MEDS: ALLOPURINOL 100 MG TABLET (FP) PO SCH (21:20)
[2019-01-25] MEDS: DUTASTERIDE 0.5 MG CAP (FP) PO SCH (21:21)
[2019-01-25] MEDS: guaiFENesin 200 MG/10 ML 10 ML UNIT-DOSE CUPS PO PRN (21:22)
[2019-01-25] MEDS: LATANOPROST 0.005% OPHTH SOLN 2.5ML BOTTLE OU SCH (21:23)
[2019-01-25] MEDS: amLODIPine BESYLATE 5 MG TABLET (FP) PO SCH (21:24)
[2019-01-25] MEDS: ENALAPRIL MALEATE 10 MG TABLET (FP) PO SCH (21:24)
[2019-01-26] MEDS ORDERED: PT OWN MED DRAWER 7, Y5N ONE ×5 (08:57→21:58)
[2019-01-26] MEDS ORDERED: LACTULOSE 20 GM/30 ML UDC (FOR ORAL USE ONLY) PO PRN (10:50)
[2019-01-26] MEDS: PRENATAL VITAMINS W/ FOLIC ACID TABLET (FP) PO SCH (10:51)
[2019-01-26] MEDS: RANITIDINE HCL 150 MG TABLET (FP) PO SCH ×2 (10:52→21:54)
[2019-01-26] MEDS: HYDROCORTISONE 0.5% TOPICAL CREAM 30 GM TUBE TP SCH (12:26)
[2019-01-26] MEDS: LACTULOSE 20 GM/30 ML UDC (FOR ORAL USE ONLY) PO SCH ×2 (13:31→21:54)
[2019-01-26] MEDS: amLODIPine BESYLATE 5 MG TABLET (FP) PO SCH (21:54)
[2019-01-26] MEDS: TAMSULOSIN HCL 0.4 MG CAP PO SCH (21:54)
[2019-01-26] MEDS: THIAMINE HCL 100 MG TABLET (FP) PO SCH (21:54)
[2019-01-26] MEDS: ALLOPURINOL 100 MG TABLET (FP) PO SCH (21:54)
[2019-01-26] MEDS: ENALAPRIL MALEATE 10 MG TABLET (FP) PO SCH (21:54)
[2019-01-26] MEDS: LATANOPROST 0.005% OPHTH SOLN 2.5ML BOTTLE OU SCH (21:56)
[2019-01-26] MEDS: DUTASTERIDE 0.5 MG CAP (FP) PO SCH (21:58)
[2019-01-27] MEDS: LACTULOSE 20 GM/30 ML UDC (FOR ORAL USE ONLY) PO SCH ×3 (06:31→21:11)
[2019-01-27] MEDS: PRENATAL VITAMINS W/ FOLIC ACID TABLET (FP) PO SCH (09:52)
[2019-01-27] MEDS: RANITIDINE HCL 150 MG TABLET (FP) PO SCH ×2 (09:52→21:10)
[2019-01-27] MEDS: HYDROCORTISONE 1% TOPICAL OINT 30 GM TUBE TP PRN (21:09)
[2019-01-27] MEDS: ALLOPURINOL 100 MG TABLET (FP) PO SCH (21:10)
[2019-01-27] MEDS: ENALAPRIL MALEATE 10 MG TABLET (FP) PO SCH (21:10)
[2019-01-27] MEDS: THIAMINE HCL 100 MG TABLET (FP) PO SCH (21:10)
[2019-01-27] MEDS: amLODIPine BESYLATE 5 MG TABLET (FP) PO SCH (21:10)
[2019-01-27] MEDS: TAMSULOSIN HCL 0.4 MG CAP PO SCH (21:10)
[2019-01-27] MEDS: DUTASTERIDE 0.5 MG CAP (FP) PO SCH (22:52)
[2019-01-27] MEDS: LATANOPROST 0.005% OPHTH SOLN 2.5ML BOTTLE OU SCH (22:53)
[2019-01-28] MEDS: LACTULOSE 20 GM/30 ML UDC (FOR ORAL USE ONLY) PO SCH (06:09)
[2019-01-28] MEDS: guaiFENesin 200 MG/10 ML 10 ML UNIT-DOSE CUPS PO PRN (06:11)
[2019-01-28] MEDS: PRENATAL VITAMINS W/ FOLIC ACID TABLET (FP) PO SCH (10:01)
[2019-01-28] MEDS: RANITIDINE HCL 150 MG TABLET (FP) PO SCH ×2 (10:01→21:57)
[2019-01-28] MEDS: BENZOCAINE/MENTH/CETYLPYRD CL 1 EACH LOZENGE MM PRN ×2 (10:04→21:57)
[2019-01-28] MEDS: amLODIPine BESYLATE 5 MG TABLET (FP) PO SCH (21:57)
[2019-01-28] MEDS: THIAMINE HCL 100 MG TABLET (FP) PO SCH (21:57)
[2019-01-28] MEDS: TAMSULOSIN HCL 0.4 MG CAP PO SCH (21:57)
[2019-01-28] MEDS: MELATONIN 5 MG TABLETS PO PRN (21:57)
[2019-01-28] MEDS: ALLOPURINOL 100 MG TABLET (FP) PO SCH (21:57)
[2019-01-28] MEDS: ENALAPRIL MALEATE 10 MG TABLET (FP) PO SCH (21:57)
[2019-01-28] MEDS: LATANOPROST 0.005% OPHTH SOLN 2.5ML BOTTLE OU SCH (21:58)
[2019-01-28] MEDS: DUTASTERIDE 0.5 MG CAP (FP) PO SCH (21:59)
[2019-01-29] MEDS: BENZOCAINE/MENTH/CETYLPYRD CL 1 EACH LOZENGE MM PRN ×2 (06:35→10:33)
[2019-01-29] MEDS: PRENATAL VITAMINS W/ FOLIC ACID TABLET (FP) PO SCH (10:32)
[2019-01-29] MEDS: RANITIDINE HCL 150 MG TABLET (FP) PO SCH ×2 (10:32→21:31)
[2019-01-29] MEDS: LACTULOSE 20 GM/30 ML UDC (FOR ORAL USE ONLY) PO PRN ×2 (14:45→21:31)
[2019-01-29] MEDS: MAG HYDROX/AL HYDROX/SIMETH 30 ML UNIT-DOSE CUP PO PRN (17:52)
[2019-01-29] MEDS ORDERED: PT OWN MED DRAWER 7, Y5N ONE (20:38)
[2019-01-29] MEDS: amLODIPine BESYLATE 5 MG TABLET (FP) PO SCH (21:31)
[2019-01-29] MEDS: TAMSULOSIN HCL 0.4 MG CAP PO SCH (21:31)
[2019-01-29] MEDS: MELATONIN 5 MG TABLETS PO PRN (21:31)
[2019-01-29] MEDS: ENALAPRIL MALEATE 10 MG TABLET (FP) PO SCH (21:31)
[2019-01-29] MEDS: ALLOPURINOL 100 MG TABLET (FP) PO SCH (21:31)
[2019-01-29] MEDS: THIAMINE HCL 100 MG TABLET (FP) PO SCH (21:31)
[2019-01-29] MEDS: LATANOPROST 0.005% OPHTH SOLN 2.5ML BOTTLE OU SCH (21:32)
[2019-01-29] MEDS: DUTASTERIDE 0.5 MG CAP (FP) PO SCH (21:34)
[2019-01-30] MEDS: RANITIDINE HCL 150 MG TABLET (FP) PO SCH ×2 (09:50→21:41)
[2019-01-30] MEDS: LACTULOSE 20 GM/30 ML UDC (FOR ORAL USE ONLY) PO SCH ×4 (09:50→21:41)
[2019-01-30] MEDS: PRENATAL VITAMINS W/ FOLIC ACID TABLET (FP) PO SCH (09:50)
[2019-01-30] MEDS: BENZOCAINE/MENTH/CETYLPYRD CL 1 EACH LOZENGE MM PRN (09:52)
[2019-01-30] MEDS: IBUPROFEN 400 MG TABLET (FP) PO PRN (18:09)
[2019-01-30] MEDS: ALLOPURINOL 100 MG TABLET (FP) PO SCH (21:41)
[2019-01-30] MEDS: LATANOPROST 0.005% OPHTH SOLN 2.5ML BOTTLE OU SCH (21:41)
[2019-01-30] MEDS: ENALAPRIL MALEATE 10 MG TABLET (FP) PO SCH (21:41)
[2019-01-30] MEDS: TAMSULOSIN HCL 0.4 MG CAP PO SCH (21:41)
[2019-01-30] MEDS: MELATONIN 5 MG TABLETS PO PRN (21:41)
[2019-01-30] MEDS: amLODIPine BESYLATE 5 MG TABLET (FP) PO SCH (21:41)
[2019-01-30] MEDS: THIAMINE HCL 100 MG TABLET (FP) PO SCH (21:41)
[2019-01-30] MEDS: DUTASTERIDE 0.5 MG CAP (FP) PO SCH (22:03)
[2019-01-31] MEDS: RANITIDINE HCL 150 MG TABLET (FP) PO SCH ×2 (09:56→21:09)
[2019-01-31] MEDS: PRENATAL VITAMINS W/ FOLIC ACID TABLET (FP) PO SCH (09:56)
[2019-01-31] MEDS: HYDROCORTISONE 1% TOPICAL OINT 30 GM TUBE TP PRN (09:57)
[2019-01-31] MEDS: LACTULOSE 20 GM/30 ML UDC (FOR ORAL USE ONLY) PO SCH ×4 (09:57→21:08)
[2019-01-31] MEDS: LATANOPROST 0.005% OPHTH SOLN 2.5ML BOTTLE OU SCH (21:08)
[2019-01-31] MEDS: TAMSULOSIN HCL 0.4 MG CAP PO SCH (21:09)
[2019-01-31] MEDS: amLODIPine BESYLATE 5 MG TABLET (FP) PO SCH (21:09)
[2019-01-31] MEDS: DUTASTERIDE 0.5 MG CAP (FP) PO SCH (21:09)
[2019-01-31] MEDS: ALLOPURINOL 100 MG TABLET (FP) PO SCH (21:09)
[2019-01-31] MEDS: THIAMINE HCL 100 MG TABLET (FP) PO SCH (21:09)
[2019-01-31] MEDS: ENALAPRIL MALEATE 10 MG TABLET (FP) PO SCH (21:09)
[2019-02-01] MEDS: LACTULOSE 20 GM/30 ML UDC (FOR ORAL USE ONLY) PO SCH ×4 (09:52→21:48)
[2019-02-01] MEDS: PRENATAL VITAMINS W/ FOLIC ACID TABLET (FP) PO SCH (09:52)
[2019-02-01] MEDS: RANITIDINE HCL 150 MG TABLET (FP) PO SCH ×2 (09:52→21:43)
[2019-02-01] MEDS ORDERED: PT OWN MED DRAWER 7, Y5N ONE (20:57)
[2019-02-01] MEDS: ALLOPURINOL 100 MG TABLET (FP) PO SCH (21:43)
[2019-02-01] MEDS: LATANOPROST 0.005% OPHTH SOLN 2.5ML BOTTLE OU SCH (21:43)
[2019-02-01] MEDS: THIAMINE HCL 100 MG TABLET (FP) PO SCH (21:43)
[2019-02-01] MEDS: ENALAPRIL MALEATE 10 MG TABLET (FP) PO SCH (21:43)
[2019-02-01] MEDS: amLODIPine BESYLATE 5 MG TABLET (FP) PO SCH (21:43)
[2019-02-01] MEDS: TAMSULOSIN HCL 0.4 MG CAP PO SCH (21:43)
[2019-02-01] MEDS: MELATONIN 5 MG TABLETS PO PRN (21:44)
[2019-02-01] MEDS: MAG HYDROX/AL HYDROX/SIMETH 30 ML UNIT-DOSE CUP PO PRN (21:48)
[2019-02-01] MEDS: DUTASTERIDE 0.5 MG CAP (FP) PO SCH (21:49)
[2019-02-02] MEDS: HYDROCORTISONE 1% TOPICAL OINT 30 GM TUBE TP PRN (10:02)
[2019-02-02] MEDS: LACTULOSE 20 GM/30 ML UDC (FOR ORAL USE ONLY) PO SCH ×4 (10:02→21:06)
[2019-02-02] MEDS: PRENATAL VITAMINS W/ FOLIC ACID TABLET (FP) PO SCH (10:02)
[2019-02-02] MEDS: RANITIDINE HCL 150 MG TABLET (FP) PO SCH ×2 (10:02→21:07)
[2019-02-02] MEDS: LATANOPROST 0.005% OPHTH SOLN 2.5ML BOTTLE OU SCH (21:06)
[2019-02-02] MEDS: ALLOPURINOL 100 MG TABLET (FP) PO SCH (21:07)
[2019-02-02] MEDS: THIAMINE HCL 100 MG TABLET (FP) PO SCH (21:07)
[2019-02-02] MEDS: TAMSULOSIN HCL 0.4 MG CAP PO SCH (21:07)
[2019-02-02] MEDS: MELATONIN 5 MG TABLETS PO PRN (21:07)
[2019-02-02] MEDS: amLODIPine BESYLATE 5 MG TABLET (FP) PO SCH (21:07)
[2019-02-02] MEDS: DUTASTERIDE 0.5 MG CAP (FP) PO SCH (21:07)
[2019-02-02] MEDS: ENALAPRIL MALEATE 10 MG TABLET (FP) PO SCH (21:08)
[2019-02-03] MEDS: PRENATAL VITAMINS W/ FOLIC ACID TABLET (FP) PO SCH (09:51)
[2019-02-03] MEDS: RANITIDINE HCL 150 MG TABLET (FP) PO SCH ×2 (09:51→21:30)
[2019-02-03] MEDS: LACTULOSE 20 GM/30 ML UDC (FOR ORAL USE ONLY) PO SCH ×4 (09:51→21:30)
[2019-02-03] MEDS: TAMSULOSIN HCL 0.4 MG CAP PO SCH (21:30)
[2019-02-03] MEDS: MELATONIN 5 MG TABLETS PO PRN (21:30)
[2019-02-03] MEDS: THIAMINE HCL 100 MG TABLET (FP) PO SCH (21:30)
[2019-02-03] MEDS: LATANOPROST 0.005% OPHTH SOLN 2.5ML BOTTLE OU SCH (21:30)
[2019-02-03] MEDS: ENALAPRIL MALEATE 10 MG TABLET (FP) PO SCH (21:31)
[2019-02-03] MEDS: amLODIPine BESYLATE 5 MG TABLET (FP) PO SCH (21:31)
[2019-02-03] MEDS: ALLOPURINOL 100 MG TABLET (FP) PO SCH (21:31)
[2019-02-03] MEDS: DUTASTERIDE 0.5 MG CAP (FP) PO SCH (21:35)
[2019-02-04] MEDS: RANITIDINE HCL 150 MG TABLET (FP) PO SCH ×2 (09:09→21:09)
[2019-02-04] MEDS: LACTULOSE 20 GM/30 ML UDC (FOR ORAL USE ONLY) PO SCH ×4 (09:09→21:09)
[2019-02-04] MEDS: PRENATAL VITAMINS W/ FOLIC ACID TABLET (FP) PO SCH (09:09)
[2019-02-04] MEDS: guaiFENesin 200 MG/10 ML 10 ML UNIT-DOSE CUPS PO PRN (09:10)
[2019-02-04] MEDS: LATANOPROST 0.005% OPHTH SOLN 2.5ML BOTTLE OU SCH (21:08)
[2019-02-04] MEDS: DUTASTERIDE 0.5 MG CAP (FP) PO SCH (21:09)
[2019-02-04] MEDS: ALLOPURINOL 100 MG TABLET (FP) PO SCH (21:09)
[2019-02-04] MEDS: TAMSULOSIN HCL 0.4 MG CAP PO SCH (21:09)
[2019-02-04] MEDS: THIAMINE HCL 100 MG TABLET (FP) PO SCH (21:09)
[2019-02-04] MEDS: amLODIPine BESYLATE 5 MG TABLET (FP) PO SCH (21:09)
[2019-02-04] MEDS: ENALAPRIL MALEATE 10 MG TABLET (FP) PO SCH (21:09)
[2019-02-04] MEDS: MELATONIN 5 MG TABLETS PO PRN (21:11)
[2019-02-05] MEDS: RANITIDINE HCL 150 MG TABLET (FP) PO SCH ×2 (09:23→22:14)
[2019-02-05] MEDS: BENZOCAINE/MENTH/CETYLPYRD CL 1 EACH LOZENGE MM PRN (09:23)
[2019-02-05] MEDS: LACTULOSE 20 GM/30 ML UDC (FOR ORAL USE ONLY) PO SCH ×4 (09:23→22:11)
[2019-02-05] MEDS: PRENATAL VITAMINS W/ FOLIC ACID TABLET (FP) PO SCH (09:23)
[2019-02-05] MEDS: MAG HYDROX/AL HYDROX/SIMETH 30 ML UNIT-DOSE CUP PO PRN (10:57)
[2019-02-05] MEDS: amLODIPine BESYLATE 5 MG TABLET (FP) PO SCH (22:11)
[2019-02-05] MEDS: TAMSULOSIN HCL 0.4 MG CAP PO SCH (22:11)
[2019-02-05] MEDS: ALLOPURINOL 100 MG TABLET (FP) PO SCH (22:11)
[2019-02-05] MEDS: THIAMINE HCL 100 MG TABLET (FP) PO SCH (22:11)
[2019-02-05] MEDS: ENALAPRIL MALEATE 10 MG TABLET (FP) PO SCH (22:11)
[2019-02-05] MEDS: MELATONIN 5 MG TABLETS PO PRN (22:13)
[2019-02-05] MEDS: LATANOPROST 0.005% OPHTH SOLN 2.5ML BOTTLE OU SCH (22:14)
[2019-02-05] MEDS: DUTASTERIDE 0.5 MG CAP (FP) PO SCH (22:15)
[2019-02-06] MEDS: LACTULOSE 20 GM/30 ML UDC (FOR ORAL USE ONLY) PO SCH ×4 (09:33→21:09)
[2019-02-06] MEDS: PRENATAL VITAMINS W/ FOLIC ACID TABLET (FP) PO SCH (09:33)
[2019-02-06] MEDS: RANITIDINE HCL 150 MG TABLET (FP) PO SCH ×2 (09:33→21:10)
[2019-02-06] MEDS: BENZOCAINE/MENTH/CETYLPYRD CL 1 EACH LOZENGE MM PRN ×2 (09:35→21:14)
[2019-02-06] MEDS: MAG HYDROX/AL HYDROX/SIMETH 30 ML UNIT-DOSE CUP PO PRN ×2 (13:17→21:09)
[2019-02-06] MEDS: LATANOPROST 0.005% OPHTH SOLN 2.5ML BOTTLE OU SCH (21:09)
[2019-02-06] MEDS: TAMSULOSIN HCL 0.4 MG CAP PO SCH (21:10)
[2019-02-06] MEDS: THIAMINE HCL 100 MG TABLET (FP) PO SCH (21:10)
[2019-02-06] MEDS: ALLOPURINOL 100 MG TABLET (FP) PO SCH (21:10)
[2019-02-06] MEDS: MELATONIN 5 MG TABLETS PO PRN (21:10)
[2019-02-06] MEDS: ENALAPRIL MALEATE 10 MG TABLET (FP) PO SCH (21:10)
[2019-02-06] MEDS: amLODIPine BESYLATE 5 MG TABLET (FP) PO SCH (21:10)
[2019-02-06] MEDS: DUTASTERIDE 0.5 MG CAP (FP) PO SCH (21:11)
[2019-02-07] MEDS: LACTULOSE 20 GM/30 ML UDC (FOR ORAL USE ONLY) PO SCH ×4 (09:47→21:44)
[2019-02-07] MEDS: RANITIDINE HCL 150 MG TABLET (FP) PO SCH ×2 (09:47→21:42)
[2019-02-07] MEDS: PRENATAL VITAMINS W/ FOLIC ACID TABLET (FP) PO SCH (09:47)
[2019-02-07] MEDS: LATANOPROST 0.005% OPHTH SOLN 2.5ML BOTTLE OU SCH (21:41)
[2019-02-07] MEDS: ENALAPRIL MALEATE 10 MG TABLET (FP) PO SCH (21:42)
[2019-02-07] MEDS: TAMSULOSIN HCL 0.4 MG CAP PO SCH (21:42)
[2019-02-07] MEDS: THIAMINE HCL 100 MG TABLET (FP) PO SCH (21:42)
[2019-02-07] MEDS: ALLOPURINOL 100 MG TABLET (FP) PO SCH (21:42)
[2019-02-07] MEDS: MELATONIN 5 MG TABLETS PO PRN (21:42)
[2019-02-07] MEDS: amLODIPine BESYLATE 5 MG TABLET (FP) PO SCH (21:42)
[2019-02-07] MEDS: BENZOCAINE/MENTH/CETYLPYRD CL 1 EACH LOZENGE MM PRN (21:44)
[2019-02-07] MEDS: DUTASTERIDE 0.5 MG CAP (FP) PO SCH (21:44)
[2019-02-08] MEDS: LACTULOSE 20 GM/30 ML UDC (FOR ORAL USE ONLY) PO SCH ×4 (09:50→21:13)
[2019-02-08] MEDS: RANITIDINE HCL 150 MG TABLET (FP) PO SCH ×2 (09:50→21:13)
[2019-02-08] MEDS: PRENATAL VITAMINS W/ FOLIC ACID TABLET (FP) PO SCH (09:50)
[2019-02-08] MEDS: THIAMINE HCL 100 MG TABLET (FP) PO SCH (21:13)
[2019-02-08] MEDS: MELATONIN 5 MG TABLETS PO PRN (21:13)
[2019-02-08] MEDS: TAMSULOSIN HCL 0.4 MG CAP PO SCH (21:13)
[2019-02-08] MEDS: ENALAPRIL MALEATE 10 MG TABLET (FP) PO SCH (21:13)
[2019-02-08] MEDS: LATANOPROST 0.005% OPHTH SOLN 2.5ML BOTTLE OU SCH (21:13)
[2019-02-08] MEDS: amLODIPine BESYLATE 5 MG TABLET (FP) PO SCH (21:13)
[2019-02-08] MEDS: ALLOPURINOL 100 MG TABLET (FP) PO SCH (21:13)
[2019-02-08] MEDS: HYDROCORTISONE 1% TOPICAL OINT 30 GM TUBE TP PRN (21:15)
[2019-02-08] MEDS ORDERED: PT OWN MED DRAWER 7, Y5N ONE (21:15)
[2019-02-08] MEDS: DUTASTERIDE 0.5 MG CAP (FP) PO SCH (21:16)
[2019-02-08] MEDS: BENZOCAINE/MENTH/CETYLPYRD CL 1 EACH LOZENGE MM PRN (21:17)
[2019-02-09] MEDS: PRENATAL VITAMINS W/ FOLIC ACID TABLET (FP) PO SCH (09:11)
[2019-02-09] MEDS: RANITIDINE HCL 150 MG TABLET (FP) PO SCH ×2 (09:11→22:09)
[2019-02-09] MEDS: LACTULOSE 20 GM/30 ML UDC (FOR ORAL USE ONLY) PO SCH ×4 (09:11→22:09)
[2019-02-09] MEDS: MAG HYDROX/AL HYDROX/SIMETH 30 ML UNIT-DOSE CUP PO PRN (17:46)
[2019-02-09] MEDS: BISMUTH SUBSALICYLATE 524 MG/30 ML UD PO PRN (20:08)
[2019-02-09] MEDS ORDERED: PT OWN MED DRAWER 7, Y5N ONE (20:53)
[2019-02-09] MEDS: TAMSULOSIN HCL 0.4 MG CAP PO SCH (22:09)
[2019-02-09] MEDS: DUTASTERIDE 0.5 MG CAP (FP) PO SCH (22:09)
[2019-02-09] MEDS: amLODIPine BESYLATE 5 MG TABLET (FP) PO SCH (22:09)
[2019-02-09] MEDS: THIAMINE HCL 100 MG TABLET (FP) PO SCH (22:10)
[2019-02-09] MEDS: LATANOPROST 0.005% OPHTH SOLN 2.5ML BOTTLE OU SCH (22:10)
[2019-02-09] MEDS: ALLOPURINOL 100 MG TABLET (FP) PO SCH (22:10)
[2019-02-09] MEDS: ENALAPRIL MALEATE 10 MG TABLET (FP) PO SCH (22:10)
[2019-02-09] MEDS: MELATONIN 5 MG TABLETS PO PRN (22:12)
[2019-02-10] MEDS: LACTULOSE 20 GM/30 ML UDC (FOR ORAL USE ONLY) PO SCH ×4 (09:30→21:09)
[2019-02-10] MEDS: PRENATAL VITAMINS W/ FOLIC ACID TABLET (FP) PO SCH (09:30)
[2019-02-10] MEDS: RANITIDINE HCL 150 MG TABLET (FP) PO SCH ×2 (09:30→21:10)
[2019-02-10] MEDS: MAG HYDROX/AL HYDROX/SIMETH 30 ML UNIT-DOSE CUP PO PRN ×2 (09:33→21:12)
--- NOTE | 2019-02-10 10:54 | PN ---
[facility] Progress Note Note: PATIENT CURRENTLY ON LACTULOSE FOR ELEVATED AMMONIA LEVELS. WILL REPEAT LEVEL TODAY. MONITOR CLINICALLY. Laboratory Tests 01/18/19 01/18/19 01/18/19 13:55 13:55 13:55 WBC 12.8 H RBC 4.81 Hgb 15.1 Hct 46.2 MCV 96.0 MCH 31.4 MCHC 32.7 RDW 15.5 Plt Count 162 D MPV 9.1 Sodium 145 Potassium 3.8 Chloride 112 H Carbon Dioxide 26 Anion Gap 7 L BUN 20.4 H Creatinine 1.2 Est GFR (CKD-EPI)AfAm 66.73 Est GFR (CKD-EPI)NonAf 57.57 POC Glucometer Random Glucose 90 Calcium 9.1 Total Bilirubin 1.0 AST 23 ALT 29 Alkaline Phosphatase 112 Ammonia Total Protein 7.8 Albumin 3.9 RPR Titer Nonreactive HIV 1&2 Antibody Screen HIV P24 Antigen 01/18/19 01/20/19 01/20/19 14:15 07:00 07:00 WBC 8.2 RBC 4.72 Hgb 15.3 Hct 45.0 MCV 95.2 MCH 32.4 MCHC 34.1 RDW 15.3 Plt Count 165 MPV 8.8 Sodium 143 Potassium 4.1 Chloride 111 H Carbon Dioxide 27 Anion Gap 5 L BUN 18.3 H Creatinine 1.2 Est GFR (CKD-EPI)AfAm 66.73 Est GFR (CKD-EPI)NonAf 57.57 POC Glucometer Random Glucose 82 Calcium 8.9 Total Bilirubin AST ALT Alkaline Phosphatase Ammonia Total Protein Albumin RPR Titer HIV 1&2 Antibody Screen Negative HIV P24 Antigen Negative 01/23/19 01/26/19 01/28/19 11:27 09:00 08:00 WBC RBC Hgb Hct MCV MCH MCHC RDW Plt Count MPV Sodium Potassium Chloride Carbon Dioxide Anion Gap BUN Creatinine Est GFR (CKD-EPI)AfAm Est GFR (CKD-EPI)NonAf POC Glucometer 93 Random Glucose Calcium Total Bilirubin AST ALT Alkaline Phosphatase Ammonia 42.80 H 52.30 H Total Protein Albumin RPR Titer HIV 1&2 Antibody Screen HIV P24 Antigen 01/31/19 08:35 WBC RBC Hgb Hct MCV MCH MCHC RDW Plt Count MPV Sodium Potassium Chloride Carbon Dioxide Anion Gap BUN Creatinine Est GFR (CKD-EPI)AfAm Est GFR (CKD-EPI)NonAf POC Glucometer Random Glucose Calcium Total Bilirubin AST ALT Alkaline Phosphatase Ammonia 43.30 H Total Protein Albumin RPR Titer HIV 1&2 Antibody Screen HIV P24 Antigen
[2019-02-10] MEDS ORDERED: PT OWN MED DRAWER 7, Y5N ONE (20:52)
[2019-02-10] MEDS: HYDROCORTISONE 1% TOPICAL OINT 30 GM TUBE TP PRN (21:08)
[2019-02-10] MEDS: LATANOPROST 0.005% OPHTH SOLN 2.5ML BOTTLE OU SCH (21:09)
[2019-02-10] MEDS: ALLOPURINOL 100 MG TABLET (FP) PO SCH (21:10)
[2019-02-10] MEDS: MELATONIN 5 MG TABLETS PO PRN (21:10)
[2019-02-10] MEDS: THIAMINE HCL 100 MG TABLET (FP) PO SCH (21:10)
[2019-02-10] MEDS: ENALAPRIL MALEATE 10 MG TABLET (FP) PO SCH (21:10)
[2019-02-10] MEDS: DUTASTERIDE 0.5 MG CAP (FP) PO SCH (21:10)
[2019-02-10] MEDS: TAMSULOSIN HCL 0.4 MG CAP PO SCH (21:10)
[2019-02-10] MEDS: amLODIPine BESYLATE 5 MG TABLET (FP) PO SCH (21:10)
[2019-02-11] MEDS: RANITIDINE HCL 150 MG TABLET (FP) PO SCH ×2 (09:46→22:24)
[2019-02-11] MEDS: LACTULOSE 20 GM/30 ML UDC (FOR ORAL USE ONLY) PO SCH ×4 (09:46→21:58)
[2019-02-11] MEDS: PRENATAL VITAMINS W/ FOLIC ACID TABLET (FP) PO SCH (09:46)
[2019-02-11] MEDS: MAG HYDROX/AL HYDROX/SIMETH 30 ML UNIT-DOSE CUP PO PRN (16:06)
[2019-02-11] MEDS: ENALAPRIL MALEATE 10 MG TABLET (FP) PO SCH (21:58)
[2019-02-11] MEDS: amLODIPine BESYLATE 5 MG TABLET (FP) PO SCH (21:58)
[2019-02-11] MEDS: THIAMINE HCL 100 MG TABLET (FP) PO SCH (21:58)
[2019-02-11] MEDS: ALLOPURINOL 100 MG TABLET (FP) PO SCH (21:58)
[2019-02-11] MEDS: HYDROCORTISONE 1% TOPICAL OINT 30 GM TUBE TP PRN (21:58)
[2019-02-11] MEDS: TAMSULOSIN HCL 0.4 MG CAP PO SCH (22:00)
[2019-02-11] MEDS: MELATONIN 5 MG TABLETS PO PRN (22:01)
[2019-02-11] MEDS: LATANOPROST 0.005% OPHTH SOLN 2.5ML BOTTLE OU SCH (22:24)
[2019-02-11] MEDS: DUTASTERIDE 0.5 MG CAP (FP) PO SCH (22:24)
[2019-02-12] MEDS: LACTULOSE 20 GM/30 ML UDC (FOR ORAL USE ONLY) PO SCH ×4 (09:34→21:06)
[2019-02-12] MEDS: RANITIDINE HCL 150 MG TABLET (FP) PO SCH ×2 (09:34→21:06)
[2019-02-12] MEDS: PRENATAL VITAMINS W/ FOLIC ACID TABLET (FP) PO SCH (09:34)
[2019-02-12] MEDS ORDERED: PT OWN MED DRAWER 7, Y5N ONE (20:41)
[2019-02-12] MEDS: LATANOPROST 0.005% OPHTH SOLN 2.5ML BOTTLE OU SCH (21:06)
[2019-02-12] MEDS: amLODIPine BESYLATE 5 MG TABLET (FP) PO SCH (21:06)
[2019-02-12] MEDS: ENALAPRIL MALEATE 10 MG TABLET (FP) PO SCH (21:06)
[2019-02-12] MEDS: TAMSULOSIN HCL 0.4 MG CAP PO SCH (21:06)
[2019-02-12] MEDS: THIAMINE HCL 100 MG TABLET (FP) PO SCH (21:06)
[2019-02-12] MEDS: ALLOPURINOL 100 MG TABLET (FP) PO SCH (21:06)
[2019-02-12] MEDS: MELATONIN 5 MG TABLETS PO PRN (21:06)
[2019-02-12] MEDS: MAG HYDROX/AL HYDROX/SIMETH 30 ML UNIT-DOSE CUP PO PRN (21:07)
[2019-02-12] MEDS: DUTASTERIDE 0.5 MG CAP (FP) PO SCH (21:08)
[2019-02-13] MEDS: PRENATAL VITAMINS W/ FOLIC ACID TABLET (FP) PO SCH (09:50)
[2019-02-13] MEDS: RANITIDINE HCL 150 MG TABLET (FP) PO SCH ×2 (09:50→21:26)
[2019-02-13] MEDS: LACTULOSE 20 GM/30 ML UDC (FOR ORAL USE ONLY) PO SCH ×4 (09:51→21:26)
[2019-02-13] MEDS: HYDROCORTISONE 1% TOPICAL OINT 30 GM TUBE TP PRN (09:51)
--- NOTE | 2019-02-13 12:59 | PN ---
[facility] Progress Note Note: Laboratory Tests 01/18/19 01/18/19 01/18/19 13:55 13:55 13:55 WBC 12.8 H RBC 4.81 Hgb 15.1 Hct 46.2 MCV 96.0 MCH 31.4 MCHC 32.7 RDW 15.5 Plt Count 162 D MPV 9.1 Sodium 145 Potassium 3.8 Chloride 112 H Carbon Dioxide 26 Anion Gap 7 L BUN 20.4 H Creatinine 1.2 Est GFR (CKD-EPI)AfAm 66.73 Est GFR (CKD-EPI)NonAf 57.57 POC Glucometer Random Glucose 90 Calcium 9.1 Total Bilirubin 1.0 AST 23 ALT 29 Alkaline Phosphatase 112 Ammonia Total Protein 7.8 Albumin 3.9 RPR Titer Nonreactive HIV 1&2 Antibody Screen HIV P24 Antigen 01/18/19 01/20/19 01/20/19 14:15 07:00 07:00 WBC 8.2 RBC 4.72 Hgb 15.3 Hct 45.0 MCV 95.2 MCH 32.4 MCHC 34.1 RDW 15.3 Plt Count 165 MPV 8.8 Sodium 143 Potassium 4.1 Chloride 111 H Carbon Dioxide 27 Anion Gap 5 L BUN 18.3 H Creatinine 1.2 Est GFR (CKD-EPI)AfAm 66.73 Est GFR (CKD-EPI)NonAf 57.57 POC Glucometer Random Glucose 82 Calcium 8.9 Total Bilirubin AST ALT Alkaline Phosphatase Ammonia Total Protein Albumin RPR Titer HIV 1&2 Antibody Screen Negative HIV P24 Antigen Negative 01/23/19 01/26/19 01/28/19 11:27 09:00 08:00 WBC RBC Hgb Hct MCV MCH MCHC RDW Plt Count MPV Sodium Potassium Chloride Carbon Dioxide Anion Gap BUN Creatinine Est GFR (CKD-EPI)AfAm Est GFR (CKD-EPI)NonAf POC Glucometer 93 Random Glucose Calcium Total Bilirubin AST ALT Alkaline Phosphatase Ammonia 42.80 H 52.30 H Total Protein Albumin RPR Titer HIV 1&2 Antibody Screen HIV P24 Antigen 01/31/19 02/12/19 08:35 08:00 WBC RBC Hgb Hct MCV MCH MCHC RDW Plt Count MPV Sodium Potassium Chloride Carbon Dioxide Anion Gap BUN Creatinine Est GFR (CKD-EPI)AfAm Est GFR (CKD-EPI)NonAf POC Glucometer Random Glucose Calcium Total Bilirubin AST ALT Alkaline Phosphatase Ammonia 43.30 H 57.40 H Total Protein Albumin RPR Titer HIV 1&2 Antibody Screen HIV P24 Antigen AMMONIA LEVEL APPRECIATED. WILL CONTINUE LACTULOSE AND REPEAT AMMONIA LEVEL .
[2019-02-13] MEDS: THIAMINE HCL 100 MG TABLET (FP) PO SCH (21:26)
[2019-02-13] MEDS: amLODIPine BESYLATE 5 MG TABLET (FP) PO SCH (21:26)
[2019-02-13] MEDS: TAMSULOSIN HCL 0.4 MG CAP PO SCH (21:26)
[2019-02-13] MEDS: ALLOPURINOL 100 MG TABLET (FP) PO SCH (21:26)
[2019-02-13] MEDS: MELATONIN 5 MG TABLETS PO PRN (21:26)
[2019-02-13] MEDS: ENALAPRIL MALEATE 10 MG TABLET (FP) PO SCH (21:26)
[2019-02-13] MEDS: MAG HYDROX/AL HYDROX/SIMETH 30 ML UNIT-DOSE CUP PO PRN (21:27)
[2019-02-13] MEDS ORDERED: PT OWN MED DRAWER 7, Y5N ONE ×2 (21:31→22:04)
[2019-02-13] MEDS: LATANOPROST 0.005% OPHTH SOLN 2.5ML BOTTLE OU SCH (21:56)
[2019-02-13] MEDS: DUTASTERIDE 0.5 MG CAP (FP) PO SCH (21:56)
[2019-02-14] MEDS: IBUPROFEN 400 MG TABLET (FP) PO PRN (07:00)
--- NOTE | 2019-02-14 09:29 | PN ---
[facility] Progress Note (SOAP) Subjective: c/o right hip pain after exercising. Pt states he was given tylenol last night with some relief. Objective: 02/14/19 09:27 CBC, BMP 01/20/19 07:00 01/20/19 07:00 Vital Signs (72 hours) 02/11/19 02/12/19 02/12/19 23:10 00:30 22:00 Temperature Pulse Rate 72 75 Respiratory 18 18 18 Rate Blood Pressure 136/78 132/76 02/13/19 02/13/19 02/13/19 00:30 07:24 20:41 Temperature 97.4 F L Pulse Rate 68 82 Respiratory 18 18 18 Rate Blood Pressure 129/74 143/80 02/14/19 02/14/19 03:30 07:16 Temperature 97.7 F Pulse Rate 81 Respiratory 20 18 Rate Blood Pressure 110/74 Physical: General: no apparent distress neuro: no neurological deficits lungs: clear heart; S1 s2 MSK: ROM limited by pain; full weight bearing. slow cautious gait Assessment: 02/14/19 09:29 right hip pain Plan: Continue with tylenol, prn; lidoderm patch and jim-meza ordered.
[2019-02-14] MEDS: PRENATAL VITAMINS W/ FOLIC ACID TABLET (FP) PO SCH (09:50)
[2019-02-14] MEDS: RANITIDINE HCL 150 MG TABLET (FP) PO SCH ×2 (09:50→21:10)
[2019-02-14] MEDS: LACTULOSE 20 GM/30 ML UDC (FOR ORAL USE ONLY) PO SCH ×4 (09:50→21:10)
[2019-02-14] MEDS: BENZOCAINE/MENTH/CETYLPYRD CL 1 EACH LOZENGE MM PRN (09:51)
[2019-02-14] MEDS: LIDOCAINE 5% TOPICAL PATCH TP SCH (10:47)
[2019-02-14] MEDS: amLODIPine BESYLATE 5 MG TABLET (FP) PO SCH (21:10)
[2019-02-14] MEDS: TAMSULOSIN HCL 0.4 MG CAP PO SCH (21:10)
[2019-02-14] MEDS: ALLOPURINOL 100 MG TABLET (FP) PO SCH (21:10)
[2019-02-14] MEDS: THIAMINE HCL 100 MG TABLET (FP) PO SCH (21:10)
[2019-02-14] MEDS: ENALAPRIL MALEATE 10 MG TABLET (FP) PO SCH (21:10)
[2019-02-14] MEDS: LATANOPROST 0.005% OPHTH SOLN 2.5ML BOTTLE OU SCH (21:11)
[2019-02-14] MEDS: METHYL SALICYLATE/MENTHOL OINT 30 GM TUBE TP SCH (21:11)
[2019-02-14] MEDS: MELATONIN 5 MG TABLETS PO PRN (21:12)
[2019-02-14] MEDS: LIDOCAINE PATCH REMOVAL MC SCH (21:58)
[2019-02-14] MEDS: DUTASTERIDE 0.5 MG CAP (FP) PO SCH (21:58)
[2019-02-15] MEDS: IBUPROFEN 400 MG TABLET (FP) PO PRN ×2 (00:37→10:46)
[2019-02-15] MEDS: PRENATAL VITAMINS W/ FOLIC ACID TABLET (FP) PO SCH (09:56)
[2019-02-15] MEDS: LACTULOSE 20 GM/30 ML UDC (FOR ORAL USE ONLY) PO SCH ×4 (09:56→21:08)
[2019-02-15] MEDS: RANITIDINE HCL 150 MG TABLET (FP) PO SCH ×2 (09:57→21:09)
[2019-02-15] MEDS: LIDOCAINE 5% TOPICAL PATCH TP SCH (09:58)
[2019-02-15] MEDS: MAGNESIUM HYDROX 2400MG/30ML ORAL SUSPENSION 30 ML CUP PO PRN (16:53)
[2019-02-15] MEDS: LATANOPROST 0.005% OPHTH SOLN 2.5ML BOTTLE OU SCH (21:08)
[2019-02-15] MEDS: TAMSULOSIN HCL 0.4 MG CAP PO SCH (21:09)
[2019-02-15] MEDS: ENALAPRIL MALEATE 10 MG TABLET (FP) PO SCH (21:09)
[2019-02-15] MEDS: DUTASTERIDE 0.5 MG CAP (FP) PO SCH (21:09)
[2019-02-15] MEDS: MELATONIN 5 MG TABLETS PO PRN (21:09)
[2019-02-15] MEDS: amLODIPine BESYLATE 5 MG TABLET (FP) PO SCH (21:09)
[2019-02-15] MEDS: ALLOPURINOL 100 MG TABLET (FP) PO SCH (21:09)
[2019-02-15] MEDS: MAG HYDROX/AL HYDROX/SIMETH 30 ML UNIT-DOSE CUP PO PRN (21:10)
[2019-02-15] MEDS: METHYL SALICYLATE/MENTHOL OINT 30 GM TUBE TP SCH (21:11)
[2019-02-15] MEDS: THIAMINE HCL 100 MG TABLET (FP) PO SCH (22:10)
[2019-02-15] MEDS: LIDOCAINE PATCH REMOVAL MC SCH (22:10)
[2019-02-16] MEDS: IBUPROFEN 400 MG TABLET (FP) PO PRN (08:22)
[2019-02-16] MEDS: RANITIDINE HCL 150 MG TABLET (FP) PO SCH ×2 (09:42→22:08)
[2019-02-16] MEDS: LACTULOSE 20 GM/30 ML UDC (FOR ORAL USE ONLY) PO SCH (09:42)
[2019-02-16] MEDS: PRENATAL VITAMINS W/ FOLIC ACID TABLET (FP) PO SCH (09:42)
[2019-02-16] MEDS: MAGNESIUM HYDROX 2400MG/30ML ORAL SUSPENSION 30 ML CUP PO PRN (09:43)
[2019-02-16] MEDS: LIDOCAINE 5% TOPICAL PATCH TP SCH (09:43)
[2019-02-16] MEDS: MAG HYDROX/AL HYDROX/SIMETH 30 ML UNIT-DOSE CUP PO PRN (17:39)
[2019-02-16] MEDS: LATANOPROST 0.005% OPHTH SOLN 2.5ML BOTTLE OU SCH (21:47)
[2019-02-16] MEDS: TAMSULOSIN HCL 0.4 MG CAP PO SCH (21:48)
[2019-02-16] MEDS: ALLOPURINOL 100 MG TABLET (FP) PO SCH (21:48)
[2019-02-16] MEDS: ENALAPRIL MALEATE 10 MG TABLET (FP) PO SCH (21:48)
[2019-02-16] MEDS: THIAMINE HCL 100 MG TABLET (FP) PO SCH (21:48)
[2019-02-16] MEDS: DUTASTERIDE 0.5 MG CAP (FP) PO SCH (21:49)
[2019-02-16] MEDS: METHYL SALICYLATE/MENTHOL OINT 30 GM TUBE TP SCH (21:49)
[2019-02-16] MEDS ORDERED: PT OWN MED DRAWER 7, Y5N ONE (21:50)
[2019-02-16] MEDS: LIDOCAINE PATCH REMOVAL MC SCH (21:50)
[2019-02-16] MEDS: MELATONIN 5 MG TABLETS PO PRN (21:52)
[2019-02-16] MEDS: amLODIPine BESYLATE 5 MG TABLET (FP) PO SCH (22:08)
[2019-02-17] MEDS: IBUPROFEN 400 MG TABLET (FP) PO PRN ×2 (06:49→14:01)
[2019-02-17] MEDS: PRENATAL VITAMINS W/ FOLIC ACID TABLET (FP) PO SCH (10:17)
[2019-02-17] MEDS: LIDOCAINE 5% TOPICAL PATCH TP SCH (10:17)
[2019-02-17] MEDS: RANITIDINE HCL 150 MG TABLET (FP) PO SCH ×2 (10:19→21:19)
--- NOTE | 2019-02-17 15:13 | PN ---
[facility] Progress Note Note: Patient scheduled for discharge on 02/20/2019 at 7am. Patient admitted 01/18/19 for alcohol dependence. Patient treated for elevated ammonia level during rehab admission with Lactulose. PMH includes HTN, Gout, BPH, CHF, OA and Glaucoma. Patient is medically stable and denies SI/HI at this time. Aftercare referral to positive directions and new focus given to patient as he wants to arrange his own aftercare. Patient to follow up with PCP within one week of discharge to continue medical management of chronic conditions. Patient has all medication in his belongings and states he has refills at his regular pharmacy, [facility]. Laboratory Tests 01/18/19 01/18/19 01/18/19 13:55 13:55 13:55 WBC 12.8 H RBC 4.81 Hgb 15.1 Hct 46.2 MCV 96.0 MCH 31.4 MCHC 32.7 RDW 15.5 Plt Count 162 D MPV 9.1 Sodium 145 Potassium 3.8 Chloride 112 H Carbon Dioxide 26 Anion Gap 7 L BUN 20.4 H Creatinine 1.2 Est GFR (CKD-EPI)AfAm 66.73 Est GFR (CKD-EPI)NonAf 57.57 POC Glucometer Random Glucose 90 Calcium 9.1 Total Bilirubin 1.0 AST 23 ALT 29 Alkaline Phosphatase 112 Ammonia Total Protein 7.8 Albumin 3.9 RPR Titer Nonreactive HIV 1&2 Antibody Screen HIV P24 Antigen 01/18/19 01/20/19 01/20/19 14:15 07:00 07:00 WBC 8.2 RBC 4.72 Hgb 15.3 Hct 45.0 MCV 95.2 MCH 32.4 MCHC 34.1 RDW 15.3 Plt Count 165 MPV 8.8 Sodium 143 Potassium 4.1 Chloride 111 H Carbon Dioxide 27 Anion Gap 5 L BUN 18.3 H Creatinine 1.2 Est GFR (CKD-EPI)AfAm 66.73 Est GFR (CKD-EPI)NonAf 57.57 POC Glucometer Random Glucose 82 Calcium 8.9 Total Bilirubin AST ALT Alkaline Phosphatase Ammonia Total Protein Albumin RPR Titer HIV 1&2 Antibody Screen Negative HIV P24 Antigen Negative 01/23/19 01/26/19 01/28/19 11:27 09:00 08:00 WBC RBC Hgb Hct MCV MCH MCHC RDW Plt Count MPV Sodium Potassium Chloride Carbon Dioxide Anion Gap BUN Creatinine Est GFR (CKD-EPI)AfAm Est GFR (CKD-EPI)NonAf POC Glucometer 93 Random Glucose Calcium Total Bilirubin AST ALT Alkaline Phosphatase Ammonia 42.80 H 52.30 H Total Protein Albumin RPR Titer HIV 1&2 Antibody Screen HIV P24 Antigen 01/31/19 02/12/19 02/15/19 08:35 08:00 08:32 WBC RBC Hgb Hct MCV MCH MCHC RDW Plt Count MPV Sodium Potassium Chloride Carbon Dioxide Anion Gap BUN Creatinine Est GFR (CKD-EPI)AfAm Est GFR (CKD-EPI)NonAf POC Glucometer Random Glucose Calcium Total Bilirubin AST ALT Alkaline Phosphatase Ammonia 43.30 H 57.40 H 41.30 H Total Protein Albumin RPR Titer HIV 1&2 Antibody Screen HIV P24 Antigen Vital Signs (72 hours) 02/14/19 02/15/19 02/15/19 20:58 03:30 09:30 Temperature Pulse Rate 78 78 81 Respiratory 18 18 18 Rate Blood Pressure 140/71 135/72 02/15/19 02/16/19 02/16/19 21:00 00:30 03:30 Temperature Pulse Rate 80 Respiratory 18 18 18 Rate Blood Pressure 133/78 02/16/19 02/16/19 02/17/19 07:14 22:00 00:30 Temperature 97.4 F L 97.4 F L Pulse Rate 82 78 Respiratory 18 18 18 Rate Blood Pressure 128/64 140/70 02/17/19 02/17/19 03:30 07:26 Temperature 97.5 F L Pulse Rate 69 Respiratory 18 18 Rate Blood Pressure 119/72 Ambulatory Orders Loperamide HCl [Imodium -] 4 mg PO Q6H PRN 01/02/16 Ranitidine [Zantac -] 150 mg PO BID #60 tablet 04/15/16 Allopurinol [Zyloprim -] 100 mg PO HS 30 Days tab MDD 1 03/16/17 Amlodipine Besylate [Norvasc -] 5 mg PO HS 30 Days tab MDD 1 03/16/17 Dutasteride [Avodart] 0.5 mg PO HS 30 Days cap MDD 1 03/16/17 Enalapril Maleate [Vasotec -] 10 mg PO HS 30 Days tab MDD 1 03/16/17 Latanoprost 0.005% Eye Drops [Xalatan 0.005% Eye Drops -] 1 drop OU HS 30 Days drop MDD 1 03/16/17 Tamsulosin HCl [Flomax -] 0.4 mg PO HS 30 Days cap MDD 1 03/16/17 Enalapril Maleate [Vasotec] 10 mg PO DAILY 01/26/19
[2019-02-17] MEDS: amLODIPine BESYLATE 5 MG TABLET (FP) PO SCH (21:19)
[2019-02-17] MEDS: LATANOPROST 0.005% OPHTH SOLN 2.5ML BOTTLE OU SCH (21:19)
[2019-02-17] MEDS: DUTASTERIDE 0.5 MG CAP (FP) PO SCH (21:19)
[2019-02-17] MEDS: LIDOCAINE PATCH REMOVAL MC SCH (21:20)
[2019-02-17] MEDS: METHYL SALICYLATE/MENTHOL OINT 30 GM TUBE TP SCH (21:20)
[2019-02-17] MEDS: ENALAPRIL MALEATE 10 MG TABLET (FP) PO SCH (21:20)
[2019-02-17] MEDS: TAMSULOSIN HCL 0.4 MG CAP PO SCH (21:20)
[2019-02-17] MEDS: ALLOPURINOL 100 MG TABLET (FP) PO SCH (21:20)
[2019-02-17] MEDS: MELATONIN 5 MG TABLETS PO PRN (21:20)
[2019-02-17] MEDS: THIAMINE HCL 100 MG TABLET (FP) PO SCH (22:10)
[2019-02-18] MEDS: RANITIDINE HCL 150 MG TABLET (FP) PO SCH ×2 (09:03→21:38)
[2019-02-18] MEDS: PRENATAL VITAMINS W/ FOLIC ACID TABLET (FP) PO SCH (09:03)
[2019-02-18] MEDS: IBUPROFEN 400 MG TABLET (FP) PO PRN ×3 (09:03→21:40)
[2019-02-18] MEDS: LIDOCAINE 5% TOPICAL PATCH TP SCH (09:04)
[2019-02-18] MEDS: BISMUTH SUBSALICYLATE 524 MG/30 ML UD PO PRN (19:52)
[2019-02-18] MEDS: THIAMINE HCL 100 MG TABLET (FP) PO SCH (21:34)
[2019-02-18] MEDS: LATANOPROST 0.005% OPHTH SOLN 2.5ML BOTTLE OU SCH (21:34)
[2019-02-18] MEDS: DUTASTERIDE 0.5 MG CAP (FP) PO SCH (21:34)
[2019-02-18] MEDS: ENALAPRIL MALEATE 10 MG TABLET (FP) PO SCH (21:34)
[2019-02-18] MEDS: TAMSULOSIN HCL 0.4 MG CAP PO SCH (21:34)
[2019-02-18] MEDS: ALLOPURINOL 100 MG TABLET (FP) PO SCH (21:34)
[2019-02-18] MEDS: amLODIPine BESYLATE 5 MG TABLET (FP) PO SCH (21:34)
[2019-02-18] MEDS: LIDOCAINE PATCH REMOVAL MC SCH (21:35)
[2019-02-18] MEDS: METHYL SALICYLATE/MENTHOL OINT 30 GM TUBE TP SCH (21:35)
[2019-02-18] MEDS: MELATONIN 5 MG TABLETS PO PRN (21:38)
[2019-02-19] MEDS: IBUPROFEN 400 MG TABLET (FP) PO PRN ×2 (06:20→13:24)
[2019-02-19] MEDS: LIDOCAINE 5% TOPICAL PATCH TP SCH (09:06)
[2019-02-19] MEDS: RANITIDINE HCL 150 MG TABLET (FP) PO SCH ×2 (09:06→21:22)
[2019-02-19] MEDS: PRENATAL VITAMINS W/ FOLIC ACID TABLET (FP) PO SCH (09:07)
[2019-02-19] MEDS: BENZOCAINE/MENTH/CETYLPYRD CL 1 EACH LOZENGE MM PRN (11:27)
[2019-02-19] MEDS ORDERED: PT OWN MED DRAWER 7, Y5N ONE (15:47)
[2019-02-19] MEDS: LATANOPROST 0.005% OPHTH SOLN 2.5ML BOTTLE OU SCH (21:21)
[2019-02-19] MEDS: THIAMINE HCL 100 MG TABLET (FP) PO SCH (21:21)
[2019-02-19] MEDS: DUTASTERIDE 0.5 MG CAP (FP) PO SCH (21:22)
[2019-02-19] MEDS: LIDOCAINE PATCH REMOVAL MC SCH (21:22)
[2019-02-19] MEDS: amLODIPine BESYLATE 5 MG TABLET (FP) PO SCH (21:22)
[2019-02-19] MEDS: ENALAPRIL MALEATE 10 MG TABLET (FP) PO SCH (21:22)
[2019-02-19] MEDS: MELATONIN 5 MG TABLETS PO PRN (21:22)
[2019-02-19] MEDS: ALLOPURINOL 100 MG TABLET (FP) PO SCH (21:22)
[2019-02-19] MEDS: METHYL SALICYLATE/MENTHOL OINT 30 GM TUBE TP SCH (21:23)
[2019-02-19] MEDS: TAMSULOSIN HCL 0.4 MG CAP PO SCH (21:24)
[2019-02-20 07:32] VITALS: BP 119/73; PULSE 82; TEMP 96.2
--- NOTE | 2019-02-20 10:40 | PN ---
[facility] Progress Note Note: PATIENT DISCHARGED THIS MORNING AT 7AM PRIOR TO PROVIDER EVALUATION. Vital Signs Temperature 96.2 F L 02/20/19 07:31 Pulse Rate 82 02/20/19 07:31 Respiratory Rate 20 02/20/19 07:31 Blood Pressure 119/73 02/20/19 07:31 O2 Sat by Pulse Oximetry (%)
== END 2019-02-20 06:55 | disposition home or self-care (01) | DRG 895 ==
LOC: YASAS 08:14 → Y6N 13:59 → UNDOADMIN 13:59 → Y6N 14:01 → Y3W 01-23 18:48
PROVIDERS: ADMIT Surgery; ATTEND Neuromusculoskeletal Medicine & OMM
PROC: HZ2ZZZZ Detoxification Services for Substance Abuse Treatment (ICD-10-PCS; principal; 2019-01-18)
PROC: HZ42ZZZ Group Counseling for Substance Abuse Treatment, Cognitive-Behavioral (ICD-10-PCS; 2019-01-23)
DX: F10.230 Alcohol dependence with withdrawal, uncomplicated (principal); E72.20 Disorder of urea cycle metabolism, unspecified; F14.10 Cocaine abuse, uncomplicated; F17.210 Nicotine dependence, cigarettes, uncomplicated; R01.1 Cardiac murmur, unspecified; I11.0 Hypertensive heart disease with heart failure; I50.9 Heart failure, unspecified; H40.10X0 Unspecified open-angle glaucoma, stage unspecified; R79.89 Other specified abnormal findings of blood chemistry; M25.551 Pain in right hip; M1A.49X1 Other secondary chronic gout, multiple sites, with tophus (tophi); K21.9 Gastro-esophageal reflux disease without esophagitis; N40.0 Benign prostatic hyperplasia without lower urinary tract symptoms; R76.11 Nonspecific reaction to tuberculin skin test without active tuberculosis; Z96.653 Presence of artificial knee joint, bilateral; Z59.0 Homelessness
CPT/HCPCS: 36415; 71046-TC-FY; 80048; 80053; 82140; 82962; 85027; 86593; 87389

== ENCOUNTER 2020-02-21 08:08 | Inpatient (IN) | payer OTHER ==
--- NOTE | 2020-02-21 08:44 | BHS.RME ---
Substance Use & Tx History - Substance Use History Alcohol Substance amount: 6 cans x 24 ounce, one quart Vodka Frequency of use: Daily Substance route: Oral Date of Last Use: 02/20/20 (Began age 15 y. No seizures. Blackouts, 3 days ago. 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) Cocaine-Crack Substance amount: $50 Frequency of use: Daily Substance route: Smoking Date of Last Use: 02/20/20 (Began age 39 y) - Last Treatment Date of last treatment: January to February 2019 detox and rehab Physical/Psych/Mental Status - Behavior General Behavior: Increased activity (restlessness, agitation) Eye Contact: Normal - Cooperativeness Cooperativeness: Cooperative - Thinking Thought Processes: Tight Thought content: Future oriented - Physical Health Problems Is patient presently having any pain?: No Does patient presently have any injuries (include location): No Does patient currently have a fever: No CIWA Nausea/Vomitin-Mild Nausea/No Vomiting Muscle Tremors: 3 Anxiety: 3 Agitation: 1-Slight > Activity Paroxysmal Sweats: 1-Minimal Palms Moist Orientation: 0-Oriented Tacttile Disturbances: 0-None Auditory Disturbances: 1-Very Mild Visual Disturbances: 2-Mild Sensitivity Headache: 0-None Present CIWA-Ar Total Score: 12
--- NOTE | 2020-02-21 10:36 | HP ---
CIWA Score Nausea/Vomitin-Mild Nausea/No Vomiting Muscle Tremors: 3 Anxiety: 3 Agitation: 1-Slight > Activity Paroxysmal Sweats: 1-Minimal Palms Moist Orientation: 0-Oriented Tacttile Disturbances: 0-None Auditory Disturbances: 1-Very Mild Visual Disturbances: 2-Mild Sensitivity Headache: 0-None Present CIWA-Ar Total Score: 12 - Admission Criteria OASAS Guidelines: Admission for Medically Managed Detox: Requires at least one of the followin. CIWA greater than 12 2. Seizures within the past 24 hours 3. Delirium tremens within the past 24 hours 4. Hallucinations within the past 24 hours 5. Acute intervention needed for co occurring medical disorder 6. Acute intervention needed for co occurring psychiatric disorder 7. Severe withdrawal that cannot be handled at a lower level of care (continued vomiting, continued diarrhea, abnormal vital signs) requiring intravenous medication and/or fluids 8. Admitting History and Physical - Admission Chief Complaint: Mr. Darling is a 80 yo gentleman who presents to [facility] requesting a detox admission for alcohol use disorder. History of Present Illness: Mr. Darling is a 80 yo gentleman who presents to [facility] requesting a detox admission for alcohol use disorder. PMH: RA, BPH, HTN, prior positive PPD s/p INH tx PSH: bilateral knee replacement, appendectomy Psych: no SOC: sleeps in a storage facility Legal: none Substance Use History Alcohol Substance amount: 6 cans x 24 ounce, one quart Vodka Frequency of use: Daily Substance route: Oral Date of Last Use: 02/20/20 (Began age 15 y. No seizures. Blackouts, 3 days ago. 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) Cocaine-Crack Substance amount: $50 Frequency of use: Daily Substance route: Smoking Date of Last Use: 02/20/20 (Began age 39 y) - Last Treatment Date of last treatment: January to February 2019 detox and rehab History Source: Patient Limitations to Obtaining History: No Limitations - Smoking History Smoking history: Current every day smoker Have you smoked in the past 12 months: Yes Aproximately how many cigarettes per day: 4 If you are a former smoker, when did you quit?: 50 yrs ago - Alcohol/Substance Use Hx Alcohol Use: Yes Admission [facility] Allergies/Adverse Reactions: Allergies Allergy/AdvReac Type Severity Reaction Status Date / Time carrot Allergy Verified 02/21/20 09:08 No Known Drug Allergies Allergy Verified 02/21/20 09:08 orange Allergy Verified 02/21/20 09:08 strawberry [[place]] Allergy Verified 02/21/20 09:08 carrot Allergy Uncoded 02/21/20 09:08 Exam Limitations: No Limitations - Ebola screening Have you traveled outside of the country in the last 21 days: No Have you been sick,other than usual withdrawal symptoms: No Do you have a fever: No - Review of Systems Constitutional: Unintentional Wgt. Loss (lost 10 lbs in the past year. sleeps 6 hours, uses "PM" sleep medication) EENT: reports: Blurred Vision (uses over the counter glasses to read) Respiratory: reports: No Symptoms reported Cardiac: reports: No Symptoms Reported GI: reports: Constipated : reports: No Symptoms Reported Musculoskeletal: reports: Joint Pain (bilateral knee pain) Neuro: reports: Dizziness (after bending over to tie shoes) Hematology: reports: No Symptoms Reported Psychiatric: reports: Anxious Patient History - Patient Medical History Hx Anemia: No Hx Asthma: No Hx Chronic Obstructive Pulmonary Disease (COPD): No Hx Cancer: No Hx Cardiac Disorders: No Hx Congestive Heart Failure: Yes (no meds ) Hx Hypertension: Yes Hx Hypercholesterolemia: No Hx Pacemaker: No HX Cerebrovascular Accident: No Hx Seizures: No Hx Dementia: No Hx Diabetes: No Hx Gastrointestinal Disorders: No Hx Liver Disease: No Hx Genitourinary Disorders: No Hx Sexually Transmitted Disorders: No Hx Renal Disease (ESRD): No Hx Thyroid Disease: No Hx Human Immunodeficiency Virus (HIV): No (last negative in 2018) Hx Hepatitis C: No Hx Depression: No Hx Suicide Attempt: No Hx Bipolar Disorder: No Hx Schizophrenia: No - Patient Surgical History Past Surgical History: Yes Hx Neurologic Surgery: No Hx Cataract Extraction: No Hx Cardiac Surgery: No Hx Lung Surgery: No Hx Breast Surgery: No Hx Breast Biopsy: No Hx Abdominal Surgery: No Hx Appendectomy: Yes (1967) Hx Cholecystectomy: No Hx Genitourinary Surgery: No Hx Section: No Hx Orthopedic Surgery: Yes (total knee replacement 2014 & 2016) Anesthesia Reaction: No - Reproductive History Patient : No - Smoking Cessation Smoking history: Current every day smoker Have you smoked in the past 12 months: Yes Aproximately how many cigarettes per day: 4 (when getting high) If you are a former smoker, when did you quit?: 50 yrs ago Hx Chewing Tobacco Use: No Initiated information on smoking cessation: Yes 'Breaking Loose' booklet given: 02/21/20 - Substances abused Crack Substance route: Smoking Frequency: Daily Amount used: $50 Age of first use: 39 Date of last use: 02/20/20 Admission Physical Exam [facility] - Physical General Appearance: Yes: No Apparent Distress, Nourished, Appropriately Dressed, Thin, Anxious HEENTM: Yes: EOMI, Hearing grossly Normal, Normocephalic, Normal Voice, Microcephalic Respiratory: Yes: Normal Breath Sounds, No Respiratory Distress, No Accessory Muscle Use Neck: Yes: Within Normal Limits, Supple Breast: Yes: Breast Exam Deferred Cardiology: Yes: Regular Rhythm, Regular Rate Abdominal: Yes: Normal Bowel Sounds, Non Tender, Flat, Soft Genitourinary: Yes: Other (deferred) Back: Yes: Normal Inspection Musculoskeletal: Yes: Gait Steady (slow) Extremities: Yes: Normal Inspection, Non-Tender Neurological: Yes: Alert, Normal Response Integumentary: Yes: Normal Color, Dry, Warm - Diagnostic (1) Alcohol dependence with uncomplicated withdrawal Current Visit: Yes Status: Acute (2) Cocaine use disorder Current Visit: Yes Status: Acute (3) History of positive PPD Current Visit: No Status: Chronic (4) Nicotine dependence Current Visit: Yes Status: Acute Qualifiers: Nicotine product type: cigarettes Substance use status: uncomplicated Qualified Code(s): F17.210 - Nicotine dependence, cigarettes, uncomplicated Cleared for Admission [facility] - Detox or Rehab [facility] Level of Care: Medically Managed Detox Regimen/Protocol: Librium Breathalyzer - Breathalyzer Breathalyzer: 0 Urine Drug Screen - Test Device Lot number: [id number] Expiration date: 02/12/22 - Control Is test valid?: Yes - Results Drug screen NEGATIVE: No Urine drug screen results: BAUDILIO-Cocaine Inpatient Rehab Admission - Rehab Decision to Admit Inpatient rehab admission?: No
[2020-02-21] MEDS ORDERED: MAGNESIUM CITRATE 300 ML BOTTLE PO PRN (10:37)
[2020-02-21] MEDS ORDERED: MAG HYDROX/AL HYDROX/SIMETH 30 ML UNIT-DOSE CUP PO PRN (10:37)
[2020-02-21] MEDS ORDERED: chlordiazePOXIDE HCL 25 MG CAPSULE PO PRN (10:37)
[2020-02-21] MEDS ORDERED: NICOTINE POLACRILEX 2 MG GUM BUC PRN (10:37)
[2020-02-21] MEDS ORDERED: METHOCARBAMOL 500 MG TABLET PO PRN (10:37)
[2020-02-21] MEDS ORDERED: BISMUTH SUBSALICYLATE 262 MG/15 ML BTL PO PRN (10:37)
[2020-02-21] MEDS ORDERED: ONDANSETRON *ODT* 4 MG TABLET SL PRN (10:37)
[2020-02-21] MEDS ORDERED: MENTHOL/PHENOL 1 EACH UD MM PRN (10:37)
[2020-02-21] MEDS ORDERED: ACETAMINOPHEN 325 MG TABLET (FP) PO PRN ×2 (10:37)
[2020-02-21] MEDS: DOCUSATE SODIUM 100 MG CAPSULE (FP) PO SCH ×2 (11:36→22:25)
[2020-02-21] MEDS: chlordiazePOXIDE HCL 25 MG CAPSULE PO SCH ×3 (11:36→22:25)
[2020-02-21] MEDS: hydrOXYzine PAMOATE 25 MG CAPSULE (FP) PO SCH ×3 (14:24→22:25)
[2020-02-21 15:20] LABS: HEMATOCRIT 41.3 % (35.4-49); HEMOGLOBIN 13.7 GM/dL (11.7-16.9); MCH 32.3 pg (25.7-33.7); MCHC 33.1 g/dl (32.0-35.9); MEAN CELL VOLUME 97.8 fl (80-96); MEAN PLT VOLUME 9.1 fl (7.5-11.1); PLATELET COUNT 143 K/MM3 (134-434); RBC 4.23 M/mm3 (4.00-5.60); RDW 15.7 % (11.9-15.9); WHITE BLOOD COUNT 7.3 K/mm3 (4.0-10.0)
[2020-02-21 15:23] LABS: ALBUMIN 3.6 g/dl (3.4-5.0); BILIRUBIN,TOTAL 0.4 mg/dL (0.2-1); BLOOD UREA NITROGEN 21.7 mg/dL (7-18); CALCIUM 8.6 mg/dL (8.5-10.1); CREATININE 1.4 mg/dL (0.55-1.3); POTASSIUM 4.3 mmol/L (3.5-5.1); TOT PROT 6.9 g/dl (6.4-8.2)
[2020-02-21] MEDS ORDERED: amLODIPine BESYLATE 5 MG TABLET (FP) PO SCH (22:00)
[2020-02-21] MEDS ORDERED: ENALAPRIL MALEATE 10 MG TABLET (FP) PO SCH (22:00)
[2020-02-21] MEDS: ALLOPURINOL 100 MG TABLET (FP) PO SCH (22:24)
[2020-02-21] MEDS: TAMSULOSIN HCL 0.4 MG CAP PO SCH (22:25)
[2020-02-21] MEDS: THIAMINE HCL 100 MG TABLET (FP) PO SCH (22:25)
[2020-02-21] MEDS: MELATONIN 5 MG TABLETS PO SCH (22:26)
[2020-02-21] MEDS: DUTASTERIDE 0.5 MG CAP (FP) PO SCH (22:26)
[2020-02-21] MEDS: LATANOPROST 0.005% OPHTH SOLN 2.5ML BOTTLE OU SCH (22:31)
[2020-02-22] MEDS: chlordiazePOXIDE HCL 25 MG CAPSULE PO SCH ×4 (06:55→22:16)
[2020-02-22] MEDS: hydrOXYzine PAMOATE 25 MG CAPSULE (FP) PO SCH ×2 (07:09→10:41)
[2020-02-22] MEDS: DOCUSATE SODIUM 100 MG CAPSULE (FP) PO SCH ×2 (10:34→22:15)
[2020-02-22] MEDS: NICOTINE 7 MG/24 HOURS TOPICAL PATCH TD SCH (10:41)
[2020-02-22] MEDS: PRENATAL VITAMINS W/ FOLIC ACID TABLET (FP) PO SCH (10:41)
--- NOTE | 2020-02-22 12:27 | PN ---
[facility] CIWA - CIWA Score Nausea/Vomitin-Mild Nausea/No Vomiting Muscle Tremors: 2 Anxiety: 3 Agitation: 2 Paroxysmal Sweats: 1-Minimal Palms Moist Orientation: 0-Oriented Tacttile Disturbances: 0-None Auditory Disturbances: 0-None Visual Disturbances: 2-Mild Sensitivity Headache: 0-None Present CIWA-Ar Total Score: 11 S Progress Note (SOAP) Subjective: 80 years old male admitted on 02/21/20 for alcohol withdrawal sx management treating with librium detox regiment sitting on the edge of the bed eating breakfast and lunch Objective: 02/22/20 13:05 Vital Signs - 24 hr 02/21/20 02/21/20 02/21/20 13:24 16:42 20:40 Temperature 97.2 F L 97.3 F L 97.5 F L Pulse Rate 77 70 67 Respiratory 18 18 16 Rate Blood Pressure 142/82 141/91 148/91 O2 Sat by Pulse 96 96 99 Oximetry (%) 02/22/20 02/22/20 06:08 08:40 Temperature 97.2 F L 97.5 F L Pulse Rate 61 69 Respiratory 16 18 Rate Blood Pressure 93/59 L 100/65 O2 Sat by Pulse 96 Oximetry (%) bp seems at the lower range set parameter for amlodipine and enalapril Laboratory Tests 02/21/20 02/21/20 02/21/20 09:40 09:40 09:40 WBC 7.3 RBC 4.23 Hgb 13.7 Hct 41.3 MCV 97.8 H MCH 32.3 MCHC 33.1 RDW 15.7 Plt Count 143 MPV 9.1 Sodium 144 Potassium 4.3 Chloride 111 H Carbon Dioxide 27 Anion Gap 6 L BUN 21.7 H Creatinine 1.4 H Est GFR (CKD-EPI)AfAm 54.99 Est GFR (CKD-EPI)NonAf 47.45 Random Glucose 107 H Calcium 8.6 Total Bilirubin 0.4 AST 30 ALT 26 Alkaline Phosphatase 93 Total Protein 6.9 Albumin 3.6 Syphilis Serology Non-reactive COVID-19 (ARBEN) HIV Ag/Ab Combo Qual 02/21/20 02/21/20 09:50 11:07 WBC RBC Hgb Hct MCV MCH MCHC RDW Plt Count MPV Sodium Potassium Chloride Carbon Dioxide Anion Gap BUN Creatinine Est GFR (CKD-EPI)AfAm Est GFR (CKD-EPI)NonAf Random Glucose Calcium Total Bilirubin AST ALT Alkaline Phosphatase Total Protein Albumin Syphilis Serology COVID-19 (ARBEN) Not detected HIV Ag/Ab Combo Qual Negative lab noted 02/22/20 13:06 Assessment: 02/22/20 13:06 alcohol withdrawal 02/22/20 13:07 hypertension Plan: librium regiment amlodipine and lisinopril
[2020-02-22] MEDS ORDERED: amLODIPine BESYLATE 5 MG TABLET (FP) PO SCH (12:29)
[2020-02-22] MEDS ORDERED: ENALAPRIL MALEATE 10 MG TABLET (FP) PO SCH (12:30)
[2020-02-22] MEDS: hydrOXYzine PAMOATE 50 MG CAPSULE (FP) PO SCH ×2 (18:33→23:15)
[2020-02-22] MEDS ORDERED: MASKS NR ONE (22:08)
[2020-02-22] MEDS: ALLOPURINOL 100 MG TABLET (FP) PO SCH (22:15)
[2020-02-22] MEDS: THIAMINE HCL 100 MG TABLET (FP) PO SCH (22:15)
[2020-02-22] MEDS: DUTASTERIDE 0.5 MG CAP (FP) PO SCH (22:15)
[2020-02-22] MEDS: TAMSULOSIN HCL 0.4 MG CAP PO SCH (22:16)
[2020-02-22] MEDS: LATANOPROST 0.005% OPHTH SOLN 2.5ML BOTTLE OU SCH (22:19)
[2020-02-22] MEDS: MELATONIN 5 MG TABLETS PO SCH (22:20)
[2020-02-22] MEDS: ENALAPRIL MALEATE 10 MG TABLET (FP) PO SCH (23:14)
[2020-02-23] MEDS: hydrOXYzine PAMOATE 50 MG CAPSULE (FP) PO SCH ×4 (07:27→23:14)
[2020-02-23] MEDS: chlordiazePOXIDE HCL 25 MG CAPSULE PO SCH ×4 (07:27→23:11)
[2020-02-23] MEDS ORDERED: FAMOTIDINE 20 MG TABLET PO SCH (10:00)
[2020-02-23] MEDS: PRENATAL VITAMINS W/ FOLIC ACID TABLET (FP) PO SCH (10:45)
[2020-02-23] MEDS: amLODIPine BESYLATE 5 MG TABLET (FP) PO SCH (10:45)
[2020-02-23] MEDS: NICOTINE 7 MG/24 HOURS TOPICAL PATCH TD SCH (10:45)
[2020-02-23] MEDS: DOCUSATE SODIUM 100 MG CAPSULE (FP) PO SCH ×2 (10:45→23:11)
--- NOTE | 2020-02-23 16:34 | PN ---
S CIWA - CIWA Score Nausea/Vomitin-Mild Nausea/No Vomiting Muscle Tremors: 2 Anxiety: 2 Agitation: 2 Paroxysmal Sweats: 1-Minimal Palms Moist Orientation: 0-Oriented Tacttile Disturbances: 1-Very Mild Itch/Numbness Auditory Disturbances: 0-None Visual Disturbances: 0-None Headache: 2-Mild CIWA-Ar Total Score: 11 [facility] Progress Note (SOAP) Subjective: alert,irritable,anxious,interrupted sleep,tremor,aching pain in the body and back Objective: 02/23/20 16:32 Vital Signs Temperature 97.3 F L 02/23/20 12:40 Pulse Rate 71 02/23/20 12:40 Respiratory Rate 18 02/23/20 12:40 Blood Pressure 111/63 02/23/20 12:40 O2 Sat by Pulse Oximetry (%) 97 02/23/20 12:40 Assessment: 02/23/20 16:32 withdrawal symptom Plan: continue detox librium regimen,vital signs and bp monitoring
[2020-02-23] MEDS: MAGNESIUM HYDROX 2400MG/30ML ORAL SUSPENSION 30 ML CUP PO PRN ×2 (17:30→23:14)
[2020-02-23] MEDS: IBUPROFEN 400 MG TABLET (FP) PO PRN (21:35)
[2020-02-23] MEDS: THIAMINE HCL 100 MG TABLET (FP) PO SCH (23:11)
[2020-02-23] MEDS: TAMSULOSIN HCL 0.4 MG CAP PO SCH (23:11)
[2020-02-23] MEDS: ENALAPRIL MALEATE 10 MG TABLET (FP) PO SCH (23:11)
[2020-02-23] MEDS: ALLOPURINOL 100 MG TABLET (FP) PO SCH (23:11)
[2020-02-23] MEDS: DUTASTERIDE 0.5 MG CAP (FP) PO SCH (23:12)
[2020-02-23] MEDS: MELATONIN 5 MG TABLETS PO SCH (23:12)
[2020-02-23] MEDS: LATANOPROST 0.005% OPHTH SOLN 2.5ML BOTTLE OU SCH (23:14)
[2020-02-24] MEDS ORDERED: chlordiazePOXIDE HCL 10 MG CAPSULE PO PRN
[2020-02-24] MEDS: hydrOXYzine PAMOATE 50 MG CAPSULE (FP) PO SCH ×3 (06:31→18:40)
[2020-02-24] MEDS: chlordiazePOXIDE HCL 10 MG CAPSULE PO SCH ×3 (06:31→18:36)
[2020-02-24] MEDS: NICOTINE 7 MG/24 HOURS TOPICAL PATCH TD SCH (10:31)
[2020-02-24] MEDS: PRENATAL VITAMINS W/ FOLIC ACID TABLET (FP) PO SCH (10:31)
[2020-02-24] MEDS: DOCUSATE SODIUM 100 MG CAPSULE (FP) PO SCH (10:32)
[2020-02-24] MEDS: FAMOTIDINE 20 MG TABLET PO SCH (10:33)
[2020-02-24] MEDS: amLODIPine BESYLATE 5 MG TABLET (FP) PO SCH (10:33)
--- NOTE | 2020-02-24 11:29 | PN ---
[facility] CIWA - CIWA Score Nausea/Vomitin-No Nausea/No Vomiting Muscle Tremors: 2 Anxiety: 2 Agitation: 0-Normal Activity Paroxysmal Sweats: 3 Orientation: 1-Uncertain about Date Tacttile Disturbances: 0-None Auditory Disturbances: 0-None Visual Disturbances: 0-None Headache: 1-Very Mild CIWA-Ar Total Score: 9 S Progress Note (SOAP) Subjective: c/o anxiety, sweats, headache, and irritability. Objective: 02/24/20 11:28 Vital Signs 02/24/20 02/24/20 05:55 09:42 Temperature 97.3 F L 98.1 F Pulse Rate 62 60 Respiratory 16 18 Rate Blood Pressure 103/54 L 125/67 O2 Sat by Pulse 94 L Oximetry (%) Laboratory Last Values WBC 7.3 K/mm3 (4.0-10.0) 02/21/20 09:40 RBC 4.23 M/mm3 (4.00-5.60) 02/21/20 09:40 Hgb 13.7 GM/dL (11.7-16.9) 02/21/20 09:40 Hct 41.3 % (35.4-49) 02/21/20 09:40 MCV 97.8 fl (80-96) H 02/21/20 09:40 MCH 32.3 pg (25.7-33.7) 02/21/20 09:40 MCHC 33.1 g/dl (32.0-35.9) 02/21/20 09:40 RDW 15.7 % (11.9-15.9) 02/21/20 09:40 Plt Count 143 K/MM3 (134-434) 02/21/20 09:40 MPV 9.1 fl (7.5-11.1) 02/21/20 09:40 Sodium 144 mmol/L (136-145) 02/21/20 09:40 Potassium 4.3 mmol/L (3.5-5.1) 02/21/20 09:40 Chloride 111 mmol/L (98-107) H 02/21/20 09:40 Carbon Dioxide 27 mmol/L (21-32) 02/21/20 09:40 Anion Gap 6 MMOL/L (8-16) L 02/21/20 09:40 BUN 21.7 mg/dL (7-18) H 02/21/20 09:40 Creatinine 1.4 mg/dL (0.55-1.3) H 02/21/20 09:40 Est GFR (CKD-EPI)AfAm 54.99 02/21/20 09:40 Est GFR (CKD-EPI)NonAf 47.45 02/21/20 09:40 Random Glucose 107 mg/dL (74-106) H 02/21/20 09:40 Calcium 8.6 mg/dL (8.5-10.1) 02/21/20 09:40 Total Bilirubin 0.4 mg/dL (0.2-1) 02/21/20 09:40 AST 30 U/L (15-37) 02/21/20 09:40 ALT 26 U/L (13-61) 02/21/20 09:40 Alkaline Phosphatase 93 U/L (45-117) 02/21/20 09:40 Total Protein 6.9 g/dl (6.4-8.2) 02/21/20 09:40 Albumin 3.6 g/dl (3.4-5.0) 02/21/20 09:40 Syphilis Serology Non-reactive (NONREACTIVE) 02/21/20 09:40 COVID-19 ([facility]) Not detected (Not Detected) 02/21/20 11:07 HIV Ag/Ab Combo Qual Negative (NEGATIVE) 02/21/20 09:50 Labs noted. Assessment: 02/24/20 11:28 AOX3 and in no acute respiratory distress. Full ROM, ambulating in the unit. Withdrawal symptoms. Plan: continue detox.
[2020-02-24] MEDS: LATANOPROST 0.005% OPHTH SOLN 2.5ML BOTTLE OU SCH (23:50)
[2020-02-25] MEDS: MELATONIN 5 MG TABLETS PO SCH ×2 (00:17→22:43)
[2020-02-25] MEDS: TAMSULOSIN HCL 0.4 MG CAP PO SCH ×2 (00:17→22:43)
[2020-02-25] MEDS: ALLOPURINOL 100 MG TABLET (FP) PO SCH ×2 (00:18→22:43)
[2020-02-25] MEDS: ENALAPRIL MALEATE 10 MG TABLET (FP) PO SCH ×2 (00:18→22:44)
[2020-02-25] MEDS: DUTASTERIDE 0.5 MG CAP (FP) PO SCH ×2 (00:18→22:43)
[2020-02-25] MEDS: DOCUSATE SODIUM 100 MG CAPSULE (FP) PO SCH ×3 (00:18→22:43)
[2020-02-25] MEDS: THIAMINE HCL 100 MG TABLET (FP) PO SCH ×2 (00:24→22:45)
[2020-02-25] MEDS: chlordiazePOXIDE HCL 10 MG CAPSULE PO SCH ×3 (00:25→18:34)
[2020-02-25] MEDS: hydrOXYzine PAMOATE 50 MG CAPSULE (FP) PO SCH ×5 (00:25→22:47)
[2020-02-25] MEDS: NICOTINE 7 MG/24 HOURS TOPICAL PATCH TD SCH (11:20)
[2020-02-25] MEDS: FAMOTIDINE 20 MG TABLET PO SCH (11:20)
[2020-02-25] MEDS: amLODIPine BESYLATE 5 MG TABLET (FP) PO SCH (11:20)
[2020-02-25] MEDS: PRENATAL VITAMINS W/ FOLIC ACID TABLET (FP) PO SCH (11:21)
--- NOTE | 2020-02-25 14:55 | PN ---
S CIWA - CIWA Score Nausea/Vomitin-Mild Nausea/No Vomiting Muscle Tremors: 1-None Visible, but [place] Anxiety: 1-Mildly Anxious Agitation: 3 Paroxysmal Sweats: 1-Minimal Palms Moist Orientation: 0-Oriented Tacttile Disturbances: 0-None Auditory Disturbances: 0-None Visual Disturbances: 0-None Headache: 0-None Present CIWA-Ar Total Score: 7 S Progress Note (SOAP) Subjective: 80 years old male admitted on 02/21/20 for alcohol withdrawal sx management treating with librium detox regiment ambulating with cane slow steady GAITS MR HARRIS STATES THAT HE HAS PROSTATE PROBLEM LEAKING URINE AT TIMES PLEASE PROVIDE ADULT DIAPER Objective: 02/25/20 14:57 Vital Signs - 24 hr 02/24/20 02/24/20 02/25/20 17:32 21:18 07:19 Temperature 97.3 F L 97.3 F L 97.5 F L Pulse Rate 93 H 81 676 H Respiratory 18 18 18 Rate Blood Pressure 108/72 145/86 135/78 O2 Sat by Pulse 99 98 Oximetry (%) 02/25/20 02/25/20 11:29 12:30 Temperature 98.8 F 98.6 F Pulse Rate 71 66 Respiratory 18 18 Rate Blood Pressure 122/69 126/69 O2 Sat by Pulse 98 Oximetry (%) Laboratory Tests 02/21/20 02/21/20 02/21/20 09:40 09:40 09:40 WBC 7.3 RBC 4.23 Hgb 13.7 Hct 41.3 MCV 97.8 H MCH 32.3 MCHC 33.1 RDW 15.7 Plt Count 143 MPV 9.1 Sodium 144 Potassium 4.3 Chloride 111 H Carbon Dioxide 27 Anion Gap 6 L BUN 21.7 H Creatinine 1.4 H Est GFR (CKD-EPI)AfAm 54.99 Est GFR (CKD-EPI)NonAf 47.45 Random Glucose 107 H Calcium 8.6 Total Bilirubin 0.4 AST 30 ALT 26 Alkaline Phosphatase 93 Total Protein 6.9 Albumin 3.6 Syphilis Serology Non-reactive COVID-19 ([facility]) HIV Ag/Ab Combo Qual 02/21/20 02/21/20 09:50 11:07 WBC RBC Hgb Hct MCV MCH MCHC RDW Plt Count MPV Sodium Potassium Chloride Carbon Dioxide Anion Gap BUN Creatinine Est GFR (CKD-EPI)AfAm Est GFR (CKD-EPI)NonAf Random Glucose Calcium Total Bilirubin AST ALT Alkaline Phosphatase Total Protein Albumin Syphilis Serology COVID-19 ([facility]EN) Not detected HIV Ag/Ab Combo Qual Negative LAB NOTED 02/25/20 14:58 RENAL INSUFFICIENCY Assessment: 02/25/20 14:58 ALCOHOL WITHDRAWAL Plan: LIBRIUM REGIMENT
[2020-02-25] MEDS: IBUPROFEN 400 MG TABLET (FP) PO PRN (18:48)
[2020-02-25] MEDS: LATANOPROST 0.005% OPHTH SOLN 2.5ML BOTTLE OU SCH (22:43)
[2020-02-26] MEDS ORDERED: chlordiazePOXIDE HCL 10 MG CAPSULE PO ONE (05:00)
[2020-02-26] MEDS: hydrOXYzine PAMOATE 50 MG CAPSULE (FP) PO SCH ×3 (05:41→18:14)
--- NOTE | 2020-02-26 11:25 | DS ---
[facility] Detox Discharge Summary Admission Date: 02/21/20 Discharge Date: 02/19/20 - History Present History: Alcohol Dependence Additional Comments: 80 years old male was admitted on 02/21/20 for alcohol withdrawal sx management treated with librium detox regiment mr little has completed the librium regiment and is tolerated well General Appearance: Yes: No Apparent Distress, Nourished, Appropriately Dressed, Thin, Anxious HEENTM: Yes: EOMI, Hearing grossly Normal, Normocephalic, Normal Voice, Microcephalic Respiratory: Yes: Normal Breath Sounds, No Respiratory Distress, No Accessory Muscle Use Neck: Yes: Within Normal Limits, Supple Breast: Yes: Breast Exam Deferred Cardiology: Yes: Regular Rhythm, Regular Rate Abdominal: Yes: Normal Bowel Sounds, Non Tender, Flat, Soft Genitourinary: Yes: Other (deferred) Back: Yes: Normal Inspection Musculoskeletal: Yes: Gait Steady (slow) Extremities: Yes: Normal Inspection, Non-Tender Neurological: Yes: Alert, Normal Response Integumentary: Yes: Normal Color, Dry, Warm Pertinent Past History: time for discharge 45 minutes transferred order set from detox to rehab - Physical Exam Results Vital Signs: Vital Signs Temperature 97.3 F L 02/26/20 09:44 Pulse Rate 73 02/26/20 09:44 Respiratory Rate 18 02/26/20 09:44 Blood Pressure 150/83 02/26/20 09:44 O2 Sat by Pulse Oximetry (%) 100 02/26/20 06:50 Pertinent Admission Physical Exam Findings: alcohol withdrawal Laboratory Tests 02/21/20 02/21/20 02/21/20 09:40 09:40 09:40 WBC 7.3 RBC 4.23 Hgb 13.7 Hct 41.3 MCV 97.8 H MCH 32.3 MCHC 33.1 RDW 15.7 Plt Count 143 MPV 9.1 Sodium 144 Potassium 4.3 Chloride 111 H Carbon Dioxide 27 Anion Gap 6 L BUN 21.7 H Creatinine 1.4 H Est GFR (CKD-EPI)AfAm 54.99 Est GFR (CKD-EPI)NonAf 47.45 Random Glucose 107 H Calcium 8.6 Total Bilirubin 0.4 AST 30 ALT 26 Alkaline Phosphatase 93 Total Protein 6.9 Albumin 3.6 Syphilis Serology Non-reactive COVID-19 ([facility]) HIV Ag/Ab Combo Qual 02/21/20 02/21/20 09:50 11:07 WBC RBC Hgb Hct MCV MCH MCHC RDW Plt Count MPV Sodium Potassium Chloride Carbon Dioxide Anion Gap BUN Creatinine Est GFR (CKD-EPI)AfAm Est GFR (CKD-EPI)NonAf Random Glucose Calcium Total Bilirubin AST ALT Alkaline Phosphatase Total Protein Albumin Syphilis Serology COVID-19 ([facility]) Not detected HIV Ag/Ab Combo Qual Negative lab noted - Treatment Hospital Course: Detox Protocol Followed, Detoxed Safely, Responded well, Discharged Condition Good, Rehab Referral Accepted Patient has [facility] - Medication Discharge Medications: Ambulatory Orders Ranitidine [Zantac -] 150 mg PO BID #60 tablet 04/15/16 Allopurinol [Zyloprim -] 100 mg PO HS 30 Days tab MDD 1 03/16/17 Amlodipine Besylate [Norvasc -] 5 mg PO HS 30 Days tab MDD 1 03/16/17 Dutasteride [Avodart] 0.5 mg PO HS 30 Days cap MDD 1 03/16/17 Enalapril Maleate [Vasotec -] 10 mg PO HS 30 Days tab MDD 1 03/16/17 Latanoprost 0.005% Eye Drops [Xalatan 0.005% Eye Drops -] 1 drop OU HS 30 Days drop MDD 1 03/16/17 Tamsulosin HCl [Flomax -] 0.4 mg PO HS 30 Days cap MDD 1 03/16/17 - Diagnosis (1) Substance induced mood disorder Current Visit: Yes Status: Suspected (2) Alcohol dependence with uncomplicated withdrawal Current Visit: Yes Status: Acute (3) Nicotine dependence Current Visit: Yes Status: Acute Qualifiers: Nicotine product type: cigarettes Substance use status: in withdrawal Qualified Code(s): F17.213 - Nicotine dependence, cigarettes, with withdrawal (4) Renal insufficiency, mild Current Visit: Yes Status: Chronic (5) CHF (congestive heart failure) Current Visit: Yes Status: Chronic Qualifiers: Heart failure type: unspecified Heart failure chronicity: chronic Qualified Code(s): I50.9 - Heart failure, unspecified (6) Chronic kidney disease Current Visit: Yes Status: Chronic Qualifiers: Chronic kidney disease stage: unspecified stage Qualified Code(s): N18.9 - Chronic kidney disease, unspecified (7) GERD (gastroesophageal reflux disease) Current Visit: Yes Status: Chronic Qualifiers: Esophagitis presence: without esophagitis Qualified Code(s): K21.9 - Gastro-esophageal reflux disease without esophagitis (8) Glaucoma Current Visit: Yes Status: Chronic Qualifiers: Glaucoma type: open-angle Open angle glaucoma type: unspecified type Laterality: bilateral Glaucoma stage: stage unspecified Qualified Code(s): H40.10X0 - Unspecified open-angle glaucoma, stage unspecified (9) Gout Current Visit: Yes Status: Chronic Qualifiers: Gout site: multiple sites Gout etiology: other secondary cause Chronicity: chronic Presence of tophus: with tophus Qualified Code(s): M1A.49X1 - Other secondary chronic gout, multiple sites, with tophus (tophi) (10) HTN (hypertension) Current Visit: Yes Status: Chronic Qualifiers: Hypertension type: essential hypertension Qualified Code(s): I10 - Essential (primary) hypertension (11) History of positive PPD Current Visit: Yes Status: Resolved - AMA Did Patient Leave Against Medical Advice: No CIWA Score - CIWA Score Nausea/Vomitin-Mild Nausea/No Vomiting Muscle Tremors: 1-None Visible, but [place] Anxiety: 0-No Anxiety, at Ease Agitation: 2 Paroxysmal Sweats: No Perspiration Orientation: 0-Oriented Tacttile Disturbances: 0-None Auditory Disturbances: 0-None Visual Disturbances: 0-None Headache: 0-None Present CIWA-Ar Total Score: 4
[2020-02-26] MEDS: DOCUSATE SODIUM 100 MG CAPSULE (FP) PO SCH (11:34)
[2020-02-26] MEDS: NICOTINE 7 MG/24 HOURS TOPICAL PATCH TD SCH (11:34)
[2020-02-26] MEDS: FAMOTIDINE 20 MG TABLET PO SCH (11:34)
[2020-02-26] MEDS: amLODIPine BESYLATE 5 MG TABLET (FP) PO SCH (11:34)
[2020-02-26] MEDS: PRENATAL VITAMINS W/ FOLIC ACID TABLET (FP) PO SCH (11:34)
[2020-02-26 14:23] VITALS: BP 144/90; PULSE 96; TEMP 98.6
[2020-02-26] MEDS: IBUPROFEN 400 MG TABLET (FP) PO PRN (18:15)
== END 2020-02-26 20:08 | disposition other institution (70) | DRG 897 ==
LOC: YASAS 08:08 → Y3N 09:29
PROVIDERS: ADMIT Allergy & Immunology; ATTEND Allergy & Immunology
PROC: HZ2ZZZZ Detoxification Services for Substance Abuse Treatment (ICD-10-PCS; principal; 2020-02-21)
DX: F10.230 Alcohol dependence with withdrawal, uncomplicated (principal); F14.20 Cocaine dependence, uncomplicated; I13.0 Hypertensive heart and chronic kidney disease with heart failure and stage 1 through stage 4 chronic kidney disease, or unspecified chronic kidney disease; F17.213 Nicotine dependence, cigarettes, with withdrawal; F19.24 Other psychoactive substance dependence with psychoactive substance-induced mood disorder; N18.9 Chronic kidney disease, unspecified; I50.9 Heart failure, unspecified; K21.9 Gastro-esophageal reflux disease without esophagitis; N40.0 Benign prostatic hyperplasia without lower urinary tract symptoms; M06.9 Rheumatoid arthritis, unspecified; R76.11 Nonspecific reaction to tuberculin skin test without active tuberculosis; Z96.653 Presence of artificial knee joint, bilateral; Z90.49 Acquired absence of other specified parts of digestive tract; Z91.018 Allergy to other foods
CPT/HCPCS: 36415; 71046-TC-FY; 80053; 85027; 86780; 87389; U0003

== ENCOUNTER 2020-02-26 19:17 | Inpatient (IN) | payer OTHER ==
--- NOTE | 2020-02-26 11:27 | HP ---
[facility] Rehab Assess/Revision - Admission History Admitted to Rehab from: [facility] Date of Admission to Rehab: 02/26/20 - Findings Detox History & Physical reviewed: Yes Concur with findings: Yes Comments/Additional Findings: transferred from detox to rehab admission as per protocol Inpatient Rehab Admission - Rehab Decision to Admit Inpatient rehab admission?: Yes - Initial Determination Are CD services needed?: Yes Free of communicable disease: Yes Not in need of hospitalization: Yes - Rehab Admission Criteria Previous failed treatment: Yes Poor recovery environment: Yes Comorbidities: Yes Lacks judgement: Yes Patient is meeting Inpatient Rehab admission criteria:: Yes
[~2020-02-26 19:17] MED LIST: LOPERAMIDE HCL 2 MG CAPSULE PO PRN; MAG HYDROX/AL HYDROX/SIMETH 30 ML UNIT-DOSE CUP PO PRN; MAGNESIUM CITRATE 300 ML BOTTLE PO PRN; MAGNESIUM HYDROX 2400MG/30ML ORAL SUSPENSION 30 ML CUP PO PRN; NICOTINE POLACRILEX 2 MG GUM BC PRN; P-EPHED 60MG/TRIPROLIDI 2.5MG TABLET PO PRN; guaiFENesin 200 MG/10 ML 10 ML UNIT-DOSE CUPS PO PRN
[2020-02-26 21:04] VITALS: BMI 24.7
[2020-02-26] MEDS: MELATONIN 5 MG TABLETS PO SCH (21:16)
[2020-02-26] MEDS: LATANOPROST 0.005% OPHTH SOLN 2.5ML BOTTLE OU SCH (21:17)
[2020-02-26] MEDS: TAMSULOSIN HCL 0.4 MG CAP PO SCH (21:19)
[2020-02-26] MEDS: FAMOTIDINE 20 MG TABLET PO SCH (21:19)
[2020-02-26] MEDS: ALLOPURINOL 100 MG TABLET (FP) PO SCH (21:20)
[2020-02-26] MEDS: THIAMINE HCL 100 MG TABLET (FP) PO SCH (21:20)
[2020-02-26] MEDS: DUTASTERIDE 0.5 MG CAP (FP) PO SCH (21:20)
[2020-02-26] MEDS: DOCUSATE SODIUM 100 MG CAPSULE (FP) PO SCH (21:20)
[2020-02-27] MEDS: FAMOTIDINE 20 MG TABLET PO SCH ×2 (11:32→21:15)
[2020-02-27] MEDS: DOCUSATE SODIUM 100 MG CAPSULE (FP) PO SCH ×2 (11:32→21:13)
[2020-02-27] MEDS: PRENATAL VITAMINS W/ FOLIC ACID TABLET (FP) PO SCH (11:32)
[2020-02-27] MEDS: NICOTINE 7 MG/24 HOURS TOPICAL PATCH TD SCH (11:37)
--- NOTE | 2020-02-27 12:49 | PN ---
[facility] Progress Note Note: Pt is a 80 y/o male admitted to rehab from [address] Pt has a PMHx of HTN, GERD,Glaucoma,BPH. Vital Signs - 24 hr 02/26/20 02/26/20 02/27/20 19:15 20:06 06:35 Temperature 97.3 F L 97.3 F L 97.7 F Pulse Rate 71 71 85 Respiratory 16 16 16 Rate Blood Pressure 140/74 140/74 147/92 O2 Sat by Pulse 96 Oximetry (%) Alert o x 3 nad oob ambulating with steady gait, slowly. s/p detox Increase po fluids Dietary consult per pt's request
[2020-02-27] MEDS: MELATONIN 5 MG TABLETS PO SCH (21:12)
[2020-02-27] MEDS: DUTASTERIDE 0.5 MG CAP (FP) PO SCH (21:13)
[2020-02-27] MEDS: TAMSULOSIN HCL 0.4 MG CAP PO SCH (21:13)
[2020-02-27] MEDS: THIAMINE HCL 100 MG TABLET (FP) PO SCH (21:15)
[2020-02-27] MEDS: ALLOPURINOL 100 MG TABLET (FP) PO SCH (21:16)
[2020-02-27] MEDS: LATANOPROST 0.005% OPHTH SOLN 2.5ML BOTTLE OU SCH (21:18)
[2020-02-28] MEDS: NICOTINE 7 MG/24 HOURS TOPICAL PATCH TD SCH (10:06)
[2020-02-28] MEDS: FAMOTIDINE 20 MG TABLET PO SCH ×2 (10:07→21:13)
[2020-02-28] MEDS: DOCUSATE SODIUM 100 MG CAPSULE (FP) PO SCH ×2 (10:07→21:12)
[2020-02-28] MEDS: PRENATAL VITAMINS W/ FOLIC ACID TABLET (FP) PO SCH (10:07)
[2020-02-28] MEDS: LATANOPROST 0.005% OPHTH SOLN 2.5ML BOTTLE OU SCH (21:11)
[2020-02-28] MEDS: DUTASTERIDE 0.5 MG CAP (FP) PO SCH (21:12)
[2020-02-28] MEDS: THIAMINE HCL 100 MG TABLET (FP) PO SCH (21:14)
[2020-02-28] MEDS: TAMSULOSIN HCL 0.4 MG CAP PO SCH (21:15)
[2020-02-28] MEDS: MELATONIN 5 MG TABLETS PO SCH (21:15)
[2020-02-28] MEDS: ALLOPURINOL 100 MG TABLET (FP) PO SCH (21:16)
[2020-02-29] MEDS: FAMOTIDINE 20 MG TABLET PO SCH ×2 (10:32→21:08)
[2020-02-29] MEDS: DOCUSATE SODIUM 100 MG CAPSULE (FP) PO SCH ×2 (10:32→21:07)
[2020-02-29] MEDS: PRENATAL VITAMINS W/ FOLIC ACID TABLET (FP) PO SCH (10:32)
[2020-02-29] MEDS: NICOTINE 7 MG/24 HOURS TOPICAL PATCH TD SCH (10:32)
[2020-02-29] MEDS: IBUPROFEN 400 MG TABLET (FP) PO PRN (10:33)
[2020-02-29] MEDS: TAMSULOSIN HCL 0.4 MG CAP PO SCH (21:07)
[2020-02-29] MEDS: MELATONIN 5 MG TABLETS PO SCH (21:07)
[2020-02-29] MEDS: LATANOPROST 0.005% OPHTH SOLN 2.5ML BOTTLE OU SCH (21:07)
[2020-02-29] MEDS: ALLOPURINOL 100 MG TABLET (FP) PO SCH (21:07)
[2020-02-29] MEDS: THIAMINE HCL 100 MG TABLET (FP) PO SCH (21:07)
[2020-02-29] MEDS: DUTASTERIDE 0.5 MG CAP (FP) PO SCH (21:08)
[2020-03-01] MEDS: FAMOTIDINE 20 MG TABLET PO SCH ×2 (10:23→22:08)
[2020-03-01] MEDS: PRENATAL VITAMINS W/ FOLIC ACID TABLET (FP) PO SCH (10:23)
[2020-03-01] MEDS: NICOTINE 7 MG/24 HOURS TOPICAL PATCH TD SCH (10:23)
[2020-03-01] MEDS: DOCUSATE SODIUM 100 MG CAPSULE (FP) PO SCH ×2 (10:23→22:08)
[2020-03-01] MEDS: IBUPROFEN 400 MG TABLET (FP) PO PRN (10:24)
[2020-03-01] MEDS: LATANOPROST 0.005% OPHTH SOLN 2.5ML BOTTLE OU SCH (22:07)
[2020-03-01] MEDS: TAMSULOSIN HCL 0.4 MG CAP PO SCH (22:08)
[2020-03-01] MEDS: THIAMINE HCL 100 MG TABLET (FP) PO SCH (22:08)
[2020-03-01] MEDS: ALLOPURINOL 100 MG TABLET (FP) PO SCH (22:08)
[2020-03-01] MEDS: DUTASTERIDE 0.5 MG CAP (FP) PO SCH (22:08)
[2020-03-01] MEDS: MELATONIN 5 MG TABLETS PO SCH (22:08)
[2020-03-01] MEDS: ACETAMINOPHEN 325 MG TABLET (FP) PO PRN (22:09)
[2020-03-02] MEDS: DOCUSATE SODIUM 100 MG CAPSULE (FP) PO SCH ×2 (09:39→21:11)
[2020-03-02] MEDS: PRENATAL VITAMINS W/ FOLIC ACID TABLET (FP) PO SCH (09:39)
[2020-03-02] MEDS: NICOTINE 7 MG/24 HOURS TOPICAL PATCH TD SCH (09:39)
[2020-03-02] MEDS: FAMOTIDINE 20 MG TABLET PO SCH ×2 (09:39→21:12)
[2020-03-02] MEDS: IBUPROFEN 400 MG TABLET (FP) PO PRN (09:40)
[2020-03-02] MEDS: LATANOPROST 0.005% OPHTH SOLN 2.5ML BOTTLE OU SCH (21:11)
[2020-03-02] MEDS: THIAMINE HCL 100 MG TABLET (FP) PO SCH (21:11)
[2020-03-02] MEDS: MELATONIN 5 MG TABLETS PO SCH (21:12)
[2020-03-02] MEDS: DUTASTERIDE 0.5 MG CAP (FP) PO SCH (21:12)
[2020-03-02] MEDS: ALLOPURINOL 100 MG TABLET (FP) PO SCH (21:12)
[2020-03-02] MEDS: TAMSULOSIN HCL 0.4 MG CAP PO SCH (21:12)
[2020-03-03] MEDS: NICOTINE 7 MG/24 HOURS TOPICAL PATCH TD SCH (09:25)
[2020-03-03] MEDS: FAMOTIDINE 20 MG TABLET PO SCH ×2 (09:25→21:19)
[2020-03-03] MEDS: PRENATAL VITAMINS W/ FOLIC ACID TABLET (FP) PO SCH (09:25)
[2020-03-03] MEDS: DOCUSATE SODIUM 100 MG CAPSULE (FP) PO SCH ×2 (09:25→21:19)
[2020-03-03] MEDS: IBUPROFEN 400 MG TABLET (FP) PO PRN (09:26)
[2020-03-03] MEDS: ACETAMINOPHEN 325 MG TABLET (FP) PO PRN (17:40)
[2020-03-03] MEDS: LATANOPROST 0.005% OPHTH SOLN 2.5ML BOTTLE OU SCH (21:17)
[2020-03-03] MEDS: ALLOPURINOL 100 MG TABLET (FP) PO SCH (21:18)
[2020-03-03] MEDS: TAMSULOSIN HCL 0.4 MG CAP PO SCH (21:18)
[2020-03-03] MEDS: THIAMINE HCL 100 MG TABLET (FP) PO SCH (21:18)
[2020-03-03] MEDS: MELATONIN 5 MG TABLETS PO SCH (21:19)
[2020-03-03] MEDS: DUTASTERIDE 0.5 MG CAP (FP) PO SCH (21:19)
[2020-03-04] MEDS: PRENATAL VITAMINS W/ FOLIC ACID TABLET (FP) PO SCH (09:28)
[2020-03-04] MEDS: NICOTINE 7 MG/24 HOURS TOPICAL PATCH TD SCH (09:28)
[2020-03-04] MEDS: FAMOTIDINE 20 MG TABLET PO SCH ×2 (09:28→21:14)
[2020-03-04] MEDS: DOCUSATE SODIUM 100 MG CAPSULE (FP) PO SCH ×2 (09:28→21:14)
[2020-03-04] MEDS: IBUPROFEN 400 MG TABLET (FP) PO PRN (09:30)
[2020-03-04] MEDS: LATANOPROST 0.005% OPHTH SOLN 2.5ML BOTTLE OU SCH (21:13)
[2020-03-04] MEDS: ALLOPURINOL 100 MG TABLET (FP) PO SCH (21:13)
[2020-03-04] MEDS: THIAMINE HCL 100 MG TABLET (FP) PO SCH (21:14)
[2020-03-04] MEDS: MELATONIN 5 MG TABLETS PO SCH (21:14)
[2020-03-04] MEDS: TAMSULOSIN HCL 0.4 MG CAP PO SCH (21:14)
[2020-03-04] MEDS: ACETAMINOPHEN 325 MG TABLET (FP) PO PRN (21:14)
[2020-03-04] MEDS: DUTASTERIDE 0.5 MG CAP (FP) PO SCH (21:14)
[2020-03-05] MEDS: DOCUSATE SODIUM 100 MG CAPSULE (FP) PO SCH ×2 (10:18→21:01)
[2020-03-05] MEDS: NICOTINE 7 MG/24 HOURS TOPICAL PATCH TD SCH (10:19)
[2020-03-05] MEDS: FAMOTIDINE 20 MG TABLET PO SCH ×2 (10:19→21:01)
[2020-03-05] MEDS: PRENATAL VITAMINS W/ FOLIC ACID TABLET (FP) PO SCH (10:19)
[2020-03-05] MEDS: IBUPROFEN 400 MG TABLET (FP) PO PRN ×2 (10:20→21:03)
[2020-03-05] MEDS: THIAMINE HCL 100 MG TABLET (FP) PO SCH (21:01)
[2020-03-05] MEDS: TAMSULOSIN HCL 0.4 MG CAP PO SCH (21:01)
[2020-03-05] MEDS: ALLOPURINOL 100 MG TABLET (FP) PO SCH (21:02)
[2020-03-05] MEDS: LATANOPROST 0.005% OPHTH SOLN 2.5ML BOTTLE OU SCH (21:02)
[2020-03-05] MEDS: MELATONIN 5 MG TABLETS PO SCH (21:03)
[2020-03-05] MEDS: DUTASTERIDE 0.5 MG CAP (FP) PO SCH (21:04)
[2020-03-06] MEDS: DOCUSATE SODIUM 100 MG CAPSULE (FP) PO SCH ×2 (10:14→21:06)
[2020-03-06] MEDS: FAMOTIDINE 20 MG TABLET PO SCH ×2 (10:15→21:06)
[2020-03-06] MEDS: NICOTINE 7 MG/24 HOURS TOPICAL PATCH TD SCH (10:15)
[2020-03-06] MEDS: PRENATAL VITAMINS W/ FOLIC ACID TABLET (FP) PO SCH (10:15)
[2020-03-06] MEDS: IBUPROFEN 400 MG TABLET (FP) PO PRN ×2 (10:15→21:05)
[2020-03-06] MEDS: LATANOPROST 0.005% OPHTH SOLN 2.5ML BOTTLE OU SCH (21:04)
[2020-03-06] MEDS: DUTASTERIDE 0.5 MG CAP (FP) PO SCH (21:05)
[2020-03-06] MEDS: ALLOPURINOL 100 MG TABLET (FP) PO SCH (21:05)
[2020-03-06] MEDS: TAMSULOSIN HCL 0.4 MG CAP PO SCH (21:05)
[2020-03-06] MEDS: THIAMINE HCL 100 MG TABLET (FP) PO SCH (21:06)
[2020-03-06] MEDS: MELATONIN 5 MG TABLETS PO SCH (21:06)
[2020-03-07] MEDS: IBUPROFEN 400 MG TABLET (FP) PO PRN (06:50)
[2020-03-07] MEDS: DOCUSATE SODIUM 100 MG CAPSULE (FP) PO SCH ×2 (09:47→22:01)
[2020-03-07] MEDS: FAMOTIDINE 20 MG TABLET PO SCH ×2 (09:47→22:01)
[2020-03-07] MEDS: PRENATAL VITAMINS W/ FOLIC ACID TABLET (FP) PO SCH (09:47)
[2020-03-07] MEDS: NICOTINE 7 MG/24 HOURS TOPICAL PATCH TD SCH (09:47)
[2020-03-07] MEDS: DUTASTERIDE 0.5 MG CAP (FP) PO SCH (22:00)
[2020-03-07] MEDS: MELATONIN 5 MG TABLETS PO SCH (22:01)
[2020-03-07] MEDS: THIAMINE HCL 100 MG TABLET (FP) PO SCH (22:01)
[2020-03-07] MEDS: TAMSULOSIN HCL 0.4 MG CAP PO SCH (22:01)
[2020-03-07] MEDS: LATANOPROST 0.005% OPHTH SOLN 2.5ML BOTTLE OU SCH (22:02)
[2020-03-07] MEDS: ALLOPURINOL 100 MG TABLET (FP) PO SCH (22:02)
[2020-03-08] MEDS: DOCUSATE SODIUM 100 MG CAPSULE (FP) PO SCH ×2 (09:35→21:10)
[2020-03-08] MEDS: IBUPROFEN 400 MG TABLET (FP) PO PRN ×2 (09:35→21:11)
[2020-03-08] MEDS: PRENATAL VITAMINS W/ FOLIC ACID TABLET (FP) PO SCH (09:35)
[2020-03-08] MEDS: FAMOTIDINE 20 MG TABLET PO SCH ×2 (09:36→21:09)
[2020-03-08] MEDS: NICOTINE 7 MG/24 HOURS TOPICAL PATCH TD SCH (09:36)
[2020-03-08] MEDS: LATANOPROST 0.005% OPHTH SOLN 2.5ML BOTTLE OU SCH (21:09)
[2020-03-08] MEDS: THIAMINE HCL 100 MG TABLET (FP) PO SCH (21:10)
[2020-03-08] MEDS: TAMSULOSIN HCL 0.4 MG CAP PO SCH (21:10)
[2020-03-08] MEDS: ALLOPURINOL 100 MG TABLET (FP) PO SCH (21:10)
[2020-03-08] MEDS: MELATONIN 5 MG TABLETS PO SCH (21:10)
[2020-03-08] MEDS: DUTASTERIDE 0.5 MG CAP (FP) PO SCH (21:10)
[2020-03-09] MEDS: NICOTINE 7 MG/24 HOURS TOPICAL PATCH TD SCH (09:09)
[2020-03-09] MEDS: FAMOTIDINE 20 MG TABLET PO SCH ×2 (09:09→21:10)
[2020-03-09] MEDS: DOCUSATE SODIUM 100 MG CAPSULE (FP) PO SCH ×2 (09:09→21:09)
[2020-03-09] MEDS: PRENATAL VITAMINS W/ FOLIC ACID TABLET (FP) PO SCH (09:09)
[2020-03-09] MEDS: IBUPROFEN 400 MG TABLET (FP) PO PRN ×2 (09:10→21:13)
[2020-03-09] MEDS: ALLOPURINOL 100 MG TABLET (FP) PO SCH (21:10)
[2020-03-09] MEDS: THIAMINE HCL 100 MG TABLET (FP) PO SCH (21:10)
[2020-03-09] MEDS: DUTASTERIDE 0.5 MG CAP (FP) PO SCH (21:10)
[2020-03-09] MEDS: TAMSULOSIN HCL 0.4 MG CAP PO SCH (21:13)
[2020-03-09] MEDS: MELATONIN 5 MG TABLETS PO SCH (21:14)
[2020-03-09] MEDS: LATANOPROST 0.005% OPHTH SOLN 2.5ML BOTTLE OU SCH (21:14)
[2020-03-10] MEDS: IBUPROFEN 400 MG TABLET (FP) PO PRN ×2 (07:21→21:28)
[2020-03-10] MEDS: PRENATAL VITAMINS W/ FOLIC ACID TABLET (FP) PO SCH (09:38)
[2020-03-10] MEDS: DOCUSATE SODIUM 100 MG CAPSULE (FP) PO SCH ×2 (09:38→21:25)
[2020-03-10] MEDS: NICOTINE 7 MG/24 HOURS TOPICAL PATCH TD SCH (09:38)
[2020-03-10] MEDS: FAMOTIDINE 20 MG TABLET PO SCH ×2 (09:38→21:26)
[2020-03-10] MEDS: THIAMINE HCL 100 MG TABLET (FP) PO SCH (21:25)
[2020-03-10] MEDS: TAMSULOSIN HCL 0.4 MG CAP PO SCH (21:26)
[2020-03-10] MEDS: ALLOPURINOL 100 MG TABLET (FP) PO SCH (21:26)
[2020-03-10] MEDS: MELATONIN 5 MG TABLETS PO SCH (21:26)
[2020-03-10] MEDS: DUTASTERIDE 0.5 MG CAP (FP) PO SCH (21:26)
[2020-03-10] MEDS: LATANOPROST 0.005% OPHTH SOLN 2.5ML BOTTLE OU SCH (21:29)
[2020-03-11 05:42] VITALS: BP 133/71; PULSE 69; TEMP 97.8
[2020-03-11] MEDS: NICOTINE 7 MG/24 HOURS TOPICAL PATCH TD SCH (09:09)
[2020-03-11] MEDS: PRENATAL VITAMINS W/ FOLIC ACID TABLET (FP) PO SCH (09:09)
[2020-03-11] MEDS: FAMOTIDINE 20 MG TABLET PO SCH (09:09)
[2020-03-11] MEDS: DOCUSATE SODIUM 100 MG CAPSULE (FP) PO SCH (09:09)
[2020-03-11] MEDS: IBUPROFEN 400 MG TABLET (FP) PO PRN (09:09)
--- NOTE | 2020-03-11 13:30 | DS ---
[facility] Rehab Discharge Summary - [facility] Rehab Discharge Summary Admission Date: 02/26/20 Discharge Date: 03/11/20 - History Present History: Alcohol dependence, Cannabis dependence, Cocaine dependence Pertinent Past History: BPH HTN CHF Glaucoma GERD Gout Urinary Incontinence - Discharge Physical Exam Vital Signs: Vital Signs Temperature 97.8 F 03/11/20 05:09 Pulse Rate 69 03/11/20 05:09 Respiratory Rate 16 03/11/20 05:09 Blood Pressure 133/71 03/11/20 05:09 O2 Sat by Pulse Oximetry (%) 95 03/11/20 05:09 Alert o x 3 nad oob ambulating with steady gait cardiac:s1 s2, rrr lungs:ctab abdomen:+bs,nt,nd,soft extremities;no edema,skin intact. Bilateral old scars on both knees-s/p knee sx. Pertinent Admission Physical Exam Findings: Fatigue and unstable gait on admission from detox which resolved within two days of rehab admission. - Treatment Discharge Condition: Discharge condition good, Rehabilitated safely, Responded well, Outpatient referral accepted Hospital Course: Pt is a 80 y/o male who completed detox and referred to rehab. Pt completed rehab today and referred to [facility] for after care. Pt has a primary care provider Dr. José Miguel Rolle at [place], [place]. This copywriter called pt's Valuable drugs Pharmacist(Mr. Dale, [facility]) on [place], [place] and confirmed pt has refills of his medications to be picked up. Pt has been referred to aftercare at [address] - Medication Discharge Medications: Ambulatory Orders Ranitidine [Zantac -] 150 mg PO BID #60 tablet 04/15/16 Allopurinol [Zyloprim -] 100 mg PO HS 30 Days tab MDD 1 03/16/17 Amlodipine Besylate [Norvasc -] 5 mg PO HS 30 Days tab MDD 1 03/16/17 Dutasteride [Avodart] 0.5 mg PO HS 30 Days cap MDD 1 03/16/17 Enalapril Maleate [Vasotec -] 10 mg PO HS 30 Days tab MDD 1 03/16/17 Latanoprost 0.005% Eye Drops [Xalatan 0.005% Eye Drops -] 1 drop OU HS 30 Days drop MDD 1 03/16/17 Tamsulosin HCl [Flomax -] 0.4 mg PO HS 30 Days cap MDD 1 03/16/17 - Medication-Assisted Treatment (MAT) Medication-Assisted Treatment (MAT): No - Discharge Instructions Diet, activity, other medical instructions: Diet:HAYDE Activity: oob ad juan Other medical instructions:follow up with [facility]care as scheduled. Follow up with Dr. Rolle for medical management. - Diagnosis (1) Alcohol use disorder Status: Chronic (2) Cannabis dependence Status: Chronic (3) Cocaine use disorder Status: Chronic (4) Nicotine dependence Status: Chronic Qualifiers: Nicotine product type: cigarettes Substance use status: uncomplicated Qualified Code(s): F17.210 - Nicotine dependence, cigarettes, uncomplicated (5) BPH (benign prostatic hyperplasia) Status: Chronic Qualifiers: Lower urinary tract symptom presence: symptoms present Lower urinary tract symptom detail: urinary frequency Qualified Code(s): N40.1 - Benign prostatic hyperplasia with lower urinary tract symptoms; R35.0 - Frequency of micturition (6) CHF (congestive heart failure) Status: Chronic Qualifiers: Heart failure type: unspecified Heart failure chronicity: chronic Qualified Code(s): I50.9 - Heart failure, unspecified (7) GERD (gastroesophageal reflux disease) Status: Chronic Qualifiers: Esophagitis presence: esophagitis presence not specified Qualified Code(s): K21.9 - Gastro-esophageal reflux disease without esophagitis (8) Glaucoma of both eyes Status: Chronic Qualifiers: Glaucoma type: unspecified Qualified Code(s): H40.9 - Unspecified glaucoma (9) Gout Status: Chronic Qualifiers: Gout site: multiple sites Gout etiology: other secondary cause Chronicity: chronic Presence of tophus: with tophus Qualified Code(s): M1A.49X1 - Other secondary chronic gout, multiple sites, with tophus (tophi) (10) HTN (hypertension) Status: Chronic Qualifiers: Hypertension type: essential hypertension Qualified Code(s): I10 - Essential (primary) hypertension - Follow-up Referral Minutes to complete discharge: 30 - AMA Did Patient Leave Against Medical Advice: No Additional Comments: Reminded pt to hand picker his medications at his pharmacy after discharge.
== END 2020-03-11 09:20 | disposition home or self-care (01) | DRG 895 ==
LOC: YASAS 19:17 → Y5N 19:18
PROVIDERS: ADMIT Allergy & Immunology; ATTEND Allergy & Immunology
PROC: HZ42ZZZ Group Counseling for Substance Abuse Treatment, Cognitive-Behavioral (ICD-10-PCS; principal; 2020-02-26)
DX: F10.20 Alcohol dependence, uncomplicated (principal); F14.20 Cocaine dependence, uncomplicated; F12.20 Cannabis dependence, uncomplicated; H40.9 Unspecified glaucoma; I11.0 Hypertensive heart disease with heart failure; I50.9 Heart failure, unspecified; K21.9 Gastro-esophageal reflux disease without esophagitis; M1A.49X1 Other secondary chronic gout, multiple sites, with tophus (tophi); N40.1 Benign prostatic hyperplasia with lower urinary tract symptoms; R35.0 Frequency of micturition; Z91.018 Allergy to other foods; Z59.0 Homelessness

== ENCOUNTER 2020-11-10 09:32 | Observation (INO) | payer OTHER ==
[2020-11-10 12:36] LABS: BASO % 0.5 % (0-2.0); EOS % 1.3 % (0-4.5); HEMATOCRIT 41.3 % (35.4-49); MCH 32.3 pg (25.7-33.7); MEAN CELL VOLUME 95.2 fl (80-96); MEAN PLT VOLUME 7.9 fl (7.5-11.1); MONO % 10.9 % (3.8-10.2); NEUT % 72.3 % (42.8-82.8); PLATELET COUNT 186 K/MM3 (134-434); RBC 4.33 M/mm3 (4.00-5.60); RDW 15.1 % (11.9-15.9); WHITE BLOOD COUNT 9.5 K/mm3 (4.0-10.0)
[2020-11-10 12:55] LABS: ALBUMIN 3.7 g/dl (3.4-5.0); BLOOD UREA NITROGEN 30.9 mg/dL (7-18); CALCIUM 8.8 mg/dL (8.5-10.1)
[2020-11-10] MEDS ORDERED: VANCOMYCIN 1 GM in D5W (PRE-DOCKED) 1,000 MG/250 ML IVPB ONE (12:57)
[2020-11-10] MEDS ORDERED: PIPERACILLIN/TAZOB 3.375 GM 3.375 GM in DEXTROSE 5%-WATER - 50 ML IVPB ONE (12:57)
[2020-11-10 12:58] LABS: CREATININE 1.5 mg/dL (0.55-1.3)
[2020-11-10 13:00] LABS: BILIRUBIN,TOTAL 0.6 mg/dL (0.2-1); TOT PROT 7.3 g/dl (6.4-8.2)
[2020-11-10] MEDS ORDERED: FOLIC ACID INJECTION - 1 MG, THIAMINE HCL 100 MG, MULTIVIT INJECTION ADULT 10 ML in SOD... IVPB ONE (19:00)
[2020-11-10] MEDS ORDERED: amLODIPine BESYLATE 5 MG TABLET (FP) PO SCH (22:00)
[2020-11-10] MEDS ORDERED: TAMSULOSIN HCL 0.4 MG CAP PO SCH (22:00)
[2020-11-10] MEDS ORDERED: ENALAPRIL MALEATE 10 MG TABLET PO SCH (22:00)
[2020-11-10] MEDS ORDERED: ALLOPURINOL 100 MG TABLET (FP) PO SCH (22:00)
[2020-11-11 03:45] VITALS: BMI 26.4
[2020-11-11 04:11] LABS: URINE APPEARANCE CLEAR; URINE BILIRUBIN NEGATIVE (NEGATIVE); URINE COLOR YELLOW; URINE GLUCOSE (UA) NEGATIVE (NEGATIVE); URINE KETONE TRACE (NEGATIVE); URINE LEUK ESTERASE NEGATIVE (NEGATIVE); URINE NITRITE NEGATIVE (NEGATIVE); URINE PROTEIN TRACE (NEGATIVE)
[2020-11-11] MEDS ORDERED: PT OWN MED DRAWER 7, Y5N ONE (09:09)
[2020-11-11] MEDS ORDERED: DOXAZOSIN MESYLATE 4 MG TABLET PO SCH (10:00)
[2020-11-11 10:07] VITALS: BP 133/75; PULSE 66; TEMP 98
[2020-11-11] MEDS ORDERED: HEPARIN NA (PORCINE) 5,000 UNITS/ML 1ML VIAL SQ SCH (22:00)
== END 2020-11-11 14:46 | disposition left against medical advice (07) ==
LOC: JER 09:32 → INTOOBSV 15:55 → J5S 15:55 → UNDOADMOB 15:55 → J5S 11-11 09:33
PROVIDERS: ADMIT Internal Medicine; ATTEND Internal Medicine
PROC: 3E033GC Introduction of Other Therapeutic Substance into Peripheral Vein, Percutaneous Approach (ICD-10-PCS; principal; 2020-11-11)
DX: F19.10 Other psychoactive substance abuse, uncomplicated (principal); R26.81 Unsteadiness on feet; G89.29 Other chronic pain; M54.9 Dorsalgia, unspecified; Z59.0 Homelessness; I50.9 Heart failure, unspecified; N40.0 Benign prostatic hyperplasia without lower urinary tract symptoms; M06.9 Rheumatoid arthritis, unspecified; F10.129 Alcohol abuse with intoxication, unspecified; F17.210 Nicotine dependence, cigarettes, uncomplicated; R39.198 Other difficulties with micturition; M10.9 Gout, unspecified; N18.9 Chronic kidney disease, unspecified
CPT/HCPCS: 36415; 70450-TC; 80053; 81003; 82140; 82607; 82746; 84443; 85025; 86780; 87086; 93005; 93010; 96365; 99285-25; C9803; G0378; G0397; U0003; U0005